=== PATIENT | female | born 1965 | race Caucasian/White ===

== ENCOUNTER → 2019-05-25 14:20 | Outpatient (BNVA) | payer MEDICAID, SELFPAY | PROVIDERS: Visit Provider Podiatrist Foot & Ankle Surgery | DX: M72.2 Plantar fascial fibromatosis (principal); B35.1 Tinea unguium | CPT/HCPCS: 87210 ==

== ENCOUNTER → 2019-08-16 08:13 | Outpatient (BNVA) | payer MEDICAID, SELFPAY | PROVIDERS: PCP Family Medicine; Visit Provider Psychiatry & Neurology Psychiatry | DX: F33.2 Major depressive disorder, recurrent severe without psychotic features (principal); F43.12 Post-traumatic stress disorder, chronic; F41.1 Generalized anxiety disorder; F40.10 Social phobia, unspecified | CPT/HCPCS: 99204 ==

== ENCOUNTER → 2019-09-17 07:46 | Outpatient (BNVA) | payer MEDICAID, SELFPAY | PROVIDERS: PCP Family Medicine; Visit Provider Psychiatry & Neurology Psychiatry | DX: F40.10 Social phobia, unspecified (principal); F41.1 Generalized anxiety disorder; F43.12 Post-traumatic stress disorder, chronic; F33.2 Major depressive disorder, recurrent severe without psychotic features | CPT/HCPCS: 99214 ==

== ENCOUNTER → 2019-09-27 08:11 | Outpatient (BNVA) | payer MEDICAID, SELFPAY | PROVIDERS: PCP Family Medicine; Visit Provider Social Worker Clinical | DX: F33.2 Major depressive disorder, recurrent severe without psychotic features (principal); F43.12 Post-traumatic stress disorder, chronic | CPT/HCPCS: 90834 ==

== ENCOUNTER → 2019-10-25 07:58 | Outpatient (BNVA) | payer MEDICAID, SELFPAY | PROVIDERS: PCP Family Medicine; Visit Provider Social Worker Clinical | DX: F33.2 Major depressive disorder, recurrent severe without psychotic features (principal); F43.12 Post-traumatic stress disorder, chronic; F41.1 Generalized anxiety disorder | CPT/HCPCS: 90834 ==

== ENCOUNTER → 2019-10-27 07:52 | Outpatient (BNVA) | payer MEDICAID, SELFPAY | PROVIDERS: PCP Family Medicine; Visit Provider Psychiatry & Neurology Psychiatry | DX: F40.10 Social phobia, unspecified (principal); F41.1 Generalized anxiety disorder; F43.12 Post-traumatic stress disorder, chronic; F33.2 Major depressive disorder, recurrent severe without psychotic features | CPT/HCPCS: 99213 ==

== ENCOUNTER → 2019-11-08 08:36 | Outpatient (BNVA) | payer MEDICAID, SELFPAY | PROVIDERS: PCP Family Medicine; Visit Provider Social Worker Clinical | DX: F43.12 Post-traumatic stress disorder, chronic (principal); F33.2 Major depressive disorder, recurrent severe without psychotic features | CPT/HCPCS: 90834 ==

== ENCOUNTER 2019-11-09 12:46 | Emergency (ER) | payer MEDICAID, SELFPAY ==
[2019-11-09 13:20] VITALS: BP 173/102; PULSE 60; RESP 15; TEMP 37.1; O2SAT 98; BMI 47.2
--- NOTE | 2019-11-09 13:36 | XRR_ITS ---
PROCEDURE INFORMATION: Exam: XR Left Foot Complete Exam date and time: 11/09/2019 2:14 PM Age: 54 years old Clinical indication: Left; Patient HX: C/O pain on medial ankle and foot; Additional info: Injury TECHNIQUE: Imaging protocol: XR Left foot. Views: 3 or more views. COMPARISON: No relevant prior studies available. FINDINGS: Bones/joints: Small calcaneal spur. Degenerative changes of the midfoot. Diffuse demineralization of the bones. No acute fracture. Soft tissues: Normal. XR/XR foot LT min 3V* [id number] IMPRESSION: No acute abnormality.
--- NOTE | 2019-11-09 13:37 | XRR_ITS ---
PROCEDURE INFORMATION: Exam: XR Left Ankle Exam date and time: 11/09/2019 2:14 PM Age: 54 years old Clinical indication: Injury or trauma; Fall; Initial encounter; Blunt trauma; Heel and foot; Injury date: 2 days ago; Injury details: Slipped landing on large rock specifically heel of left foot. Unable to bear weight on heel of foot; Patient HX: C/O left heel pain TECHNIQUE: Imaging protocol: XR Left ankle. Views: 3 or more views. COMPARISON: CR XR foot LT min 3V* [id number] 11/09/2019 2:10 PM FINDINGS: Bones/joints: Normal. Soft tissues: Normal. XR/XR ankle LT min 3V* [id number] IMPRESSION: No acute abnormality.
--- NOTE | 2019-11-09 14:47 | ED_ITS ---
HPI - Extremity Problem General: Chief complaint: Extremity Injury, Lower Stated complaint: L ankle injury/pain Time Seen by Provider: 11/09/19 13:25 Source: patient Mode of arrival: ambulatory Limitations: no limitations History of Present Illness: HPI Narrative: Patient states that a couple [place] large rock specifically on her heel of her left foot. Since that time it is become increasingly tender she states that it feels bruised despite no obvious appearance of injury or edema. Patient has the ability to walk on the ball of her foot but is unable to bear weight on the heel of her foot. Pain improves with rest and elevation MD Complaint: extremity pain Pain Consistency: intermittent Location: left and lower extremity Quality: aching and dull Radiation: none Relieving factors: elevation and rest Exacerbating factors: weight bearing and walking Associated symptoms: Reports no associated symptoms Review of Systems General: Reports: 10 or more systems reviewed and unremarkable except in HPI and below Musc: Reports: extremity pain; Denies: extremity swelling, joint pain, joint swelling, joint redness or joint warmth PFSH ED PFSH: Medical History Hypercholesteremia Type 2 diabetes mellitus with diabetic polyneuropathy Surgical History H/O section H/O hysterectomy with oophorectomy History of kidney surgery Hx of cholecystectomy Family History Other Cancer Diabetes Heart disease Thyroid disease Denies family history of CAD (coronary artery disease) Clotting disorder Dementia Hyperlipidemia Psychiatric illness Chronic kidney disease (CKD) Suicide Anesthesia complication Bleeding disorder Family history of premature coronary artery disease Lung disease Hypertension Stroke Social History Smoking and tobacco status: never smoked Alcohol intake: never Substance/Drug Use: never Current occupational status: unemployed and previously employed Current gender identity: Female Physical Exam Const: COMMON NORMALS: no acute distress, patient oriented x3 and alert GENERAL APPEARANCE: cooperative and well kempt HENMT: COMMON NORMALS: normocephalic, atraumatic, external ears normal and TM's normal bilaterally HEAD & SCALP: normocephalic and atraumatic EXTERNAL EAR: Yes external ears normal TYMPANIC MEMBRANE: TM's normal bilaterally MOUTH: Normal oral and palatal mucosa present Eye: COMMON NORMALS: Equal, round and reactive pupils present GENERAL EYE: appearance normal, both eyes and all related structures PUPIL: Yes Equal, round and reactive pupils present and Yes Pupil accommodation reflex normal Neck/C-Spine: COMMON NORMALS: full ROM, no lymphadenopathy, supple, no JVD, Thyroid normal and No carotid bruits GENERAL: Yes trachea midline THYROID: Thyroid normal, no masses and nontender Lymph: LYMPHATIC: no lymphadenopathy noted Chest: CHEST: Yes Symmetrical chest wall rise Resp: COMMON NORMALS: normal respiratory effort and clear to auscultation bilaterally EFFORT & INSPECTION: Yes able to speak in complete sentences AUSCULTATION: clear to auscultation bilaterally Cardio: COMMON NORMALS: no JVD, regular rhythm and No murmurs present (Cardio) PALPATION: normal PMI RHYTHM: regular rhythm GI: COMMON NORMALS: non-tender, no masses and no bruits INSPECTION: Yes normal to inspection, No scar and No striae AUSCULTATION: Yes normoactive bowel sounds PALPATION: No Tenderness to palpation present (GI), No Guarding due to palpation present (GI), No Rigid due to palpation, No Hernia present and No Rebound tenderness present PERCUSSION: normal to percussion : EXTERNAL FEMALE EXAM: No Hernia present Back/Pelvis: GENERAL BACK: No swelling and No tenderness THORACIC SPINE/UPPER BACK: No pain with ROM Extremity: COMMON NORMALS: normal to inspection, no clubbing, cyanosis or edema and no calf tenderness LEFT LOWER EXTREMITY: Yes foot & digits Left foot and digits: Yes inspection, Yes palpation (Tender to touch), Yes ROM (Patient limits ROM due to pain.) and Yes neurovascular exam (intact) Neuro: COMMON NORMALS: patient oriented x3 and moves all extremities SENSORIUM/ORIENTATION: Yes alert CRANIAL NERVES: Yes CN normal except as noted GAIT: Yes Normal gait present MOTOR EXAM: 5/5 motor strength present throughout Psych: COMMON NORMALS: mental status grossly normal APPEARANCE: Yes well kempt Skin: COMMON NORMALS: no rashes or lesions noted and turgor normal NARRATIVE SKIN EXAM: Normal coloration of skin GENERAL SKIN EXAM: no rashes or lesions noted and turgor normal LESIONS: no lesions RASHES: no rashes TRAUMA: no lacerations or abrasions Course Reevaluation(s): Reevaluation #1: Discussed possible causes of traumatic injury to foot including stone bruise, fracture, sprain related to mechanism of injury. Awaiting x-ray results. Time: 14:52 Vital Signs: Vital signs: Vital Signs Temperature 98.8 F 11/09/19 13:20 Pulse Rate 60 11/09/19 13:20 Respiratory Rate 15 11/09/19 13:20 Blood Pressure 173/102 11/09/19 13:20 Pulse Oximetry 98 11/09/19 13:20 MDM - Extremity (Nontraumatic) MDM Narrative: Medical decision making narrative: X-ray results indicate no acute abnormality in the ankle or foot. Patient is to rest foot, elevate, ice, and trial NSAIDs for pain management. Patient has tolerated naproxen in the past will have follow-up with PCP in the next week should pain not resolve. Discharge Plan Discharge Patient Disposition: Home, Self-Care Clinical Impression: Muscle strain of foot Qualifiers: Encounter type: initial encounter Laterality: left Qualified Code(s): S96.912A - Strain of unspecified muscle and tendon at ankle and foot level, left foot, initial encounter Condition: Stable Prescriptions: New naproxen 500 mg tablet 500 mg PO Q12H 7 Days Qty: 14 RF: 0 No Action sertraline [Zoloft] 50 mg tablet 100 mg PO DAILY Qty: 60 RF: 2 mirtazapine 7.5 mg tablet 7.5 mg PO .HS Qty: 30 RF: 2 hydroxyzine HCl 25 mg tablet 25 mg PO QID PRN (Reason: anxiety) Qty: 120 RF: 2 bupropion HCl 150 mg tablet sustained-release 12 hr 150 mg PO BID Qty: 60 RF: 2 promethazine 25 mg tablet 25 mg PO Q6H PRNRF: 0 biotin 1,000 mcg tablet,chewable 1,000 mcg PO QDAY RF: 0 ascorbate calcium (vitamin C) 250 each PO DAILY RF: 0 mv,Ca,[id number] no.187 200 mcg tablet PO DAILY RF: 0 rizatriptan 5 mg tablet 5 mg PO DAILY RF: 0 clopidogrel 75 mg tablet 75 mg PO DAILY RF: 0 divalproex 500 mg tablet,delayed release (DR/EC) 500 mg PO BID RF: 0 acetaminophen [Tylenol Extra Strength] 500 mg tablet 500 mg PO Q6H PRNRF: 0 gabapentin 800 mg tablet 800 mg PO QID RF: 0 ondansetron HCl 4 mg tablet 4 mg PO DAILY PRN (Reason: nausea and vomiting) RF: 0 simvastatin 20 mg tablet 20 mg PO DAILY RF: 0 diphenhydramine HCl [Benadryl] 25 mg capsule 25 mg PO QID PRNRF: 0 psyllium husk [Fiber-Caps (psyllium husk)] 0.52 gram capsule 2.6 gm PO DAILY RF: 0 green tea extract 500 mg capsule See Rx Instructions PO DAILY RF: 0 ferrous sulfate [FeroSul] 325 mg (65 mg iron) tablet 325 mg PO .Weekly RF: 0 Referrals: Jai Hopkins [Primary Care Provider] - 4-7 days Discharge Diet: Usual diet Discharge Activity: Increase activity as tolerated Patient Instructions: RICE Therapy (ED), Muscle Strain (ED) Coding Level of Care Code ED Nutrient Management Specialist for [facility] Fwd Exam Comprehensive
[2019-11-09 15:30] VITALS: PULSE 61; RESP 20; O2SAT 98
--- NOTE | 2019-11-09 15:33 | PC.NURSE ---
patients foot was wrapped and tolerated well. patient discharged and walked to waiting room
== END 2019-11-09 15:39 | disposition home or self-care (01) ==
PROVIDERS: Emergency Provider Nurse Practitioner Family; PCP Family Medicine
DX: S96.912A Strain of unspecified muscle and tendon at ankle and foot level, left foot, initial encounter (principal); Z79.02 Long term (current) use of antithrombotics/antiplatelets; W22.09XA Striking against other stationary object, initial encounter; E11.9 Type 2 diabetes mellitus without complications
CPT/HCPCS: 12345; 73610; 73630; 99281; 99283

== ENCOUNTER → 2019-11-30 08:57 | Outpatient (BNVA) | payer MEDICAID, SELFPAY | PROVIDERS: PCP Family Medicine; Visit Provider Social Worker Clinical | DX: F33.2 Major depressive disorder, recurrent severe without psychotic features (principal); F43.12 Post-traumatic stress disorder, chronic | CPT/HCPCS: 90834 ==

== ENCOUNTER → 2019-12-14 08:19 | Outpatient (BNVA) | payer MEDICAID, SELFPAY | PROVIDERS: PCP Family Medicine; Visit Provider Social Worker Clinical | DX: F33.2 Major depressive disorder, recurrent severe without psychotic features (principal); F43.12 Post-traumatic stress disorder, chronic | CPT/HCPCS: 90832 ==

== ENCOUNTER → 2019-12-28 08:28 | Outpatient (BNVA) | payer MEDICAID, SELFPAY | PROVIDERS: PCP Family Medicine; Visit Provider Social Worker Clinical | DX: F33.2 Major depressive disorder, recurrent severe without psychotic features (principal); F43.12 Post-traumatic stress disorder, chronic | CPT/HCPCS: 90834 ==

== ENCOUNTER → 2020-02-01 07:49 | Outpatient (BNVA) | payer MEDICAID, SELFPAY | PROVIDERS: PCP Family Medicine; Visit Provider Psychiatry & Neurology Psychiatry | DX: F40.10 Social phobia, unspecified (principal); F41.1 Generalized anxiety disorder; F43.12 Post-traumatic stress disorder, chronic; F33.2 Major depressive disorder, recurrent severe without psychotic features | CPT/HCPCS: 99213 ==

== ENCOUNTER → 2020-02-07 09:25 | Outpatient (BNVA) | payer MEDICAID, SELFPAY | PROVIDERS: PCP Family Medicine; Visit Provider Social Worker Clinical | DX: F43.12 Post-traumatic stress disorder, chronic (principal); F33.2 Major depressive disorder, recurrent severe without psychotic features | CPT/HCPCS: 90834 ==

== ENCOUNTER → 2020-02-21 08:58 | Outpatient (BNVA) | payer MEDICAID, SELFPAY | PROVIDERS: PCP Family Medicine; Visit Provider Social Worker Clinical | DX: F43.12 Post-traumatic stress disorder, chronic (principal); F33.2 Major depressive disorder, recurrent severe without psychotic features | CPT/HCPCS: 90834 ==

== ENCOUNTER → 2020-03-06 08:33 | Outpatient (BNVA) | payer MEDICAID, SELFPAY | PROVIDERS: PCP Family Medicine; Visit Provider Social Worker Clinical | DX: F43.12 Post-traumatic stress disorder, chronic (principal); F33.2 Major depressive disorder, recurrent severe without psychotic features | CPT/HCPCS: 90832 ==

== ENCOUNTER → 2020-03-28 08:13 | Outpatient (BNVA) | payer MEDICAID, SELFPAY | PROVIDERS: PCP Family Medicine; Visit Provider Social Worker Clinical | DX: F43.12 Post-traumatic stress disorder, chronic (principal); F41.1 Generalized anxiety disorder | CPT/HCPCS: 90834 ==

== ENCOUNTER → 2020-05-30 09:31 | Outpatient (BNVA) | payer MEDICAID, SELFPAY | PROVIDERS: PCP Family Medicine; Visit Provider Psychiatry & Neurology Psychiatry | DX: F40.10 Social phobia, unspecified (principal); F41.1 Generalized anxiety disorder; F43.12 Post-traumatic stress disorder, chronic; F33.2 Major depressive disorder, recurrent severe without psychotic features | CPT/HCPCS: 99214 ==

== ENCOUNTER → 2020-07-04 12:55 | Outpatient (BNVA) | payer MEDICAID, SELFPAY | PROVIDERS: PCP Family Medicine; Visit Provider Psychiatry & Neurology Psychiatry | DX: F40.10 Social phobia, unspecified (principal); F41.1 Generalized anxiety disorder; F43.12 Post-traumatic stress disorder, chronic; F33.2 Major depressive disorder, recurrent severe without psychotic features | CPT/HCPCS: 99213 ==

== ENCOUNTER → 2020-10-06 10:30 | Outpatient (BNVA) | payer MEDICAID, SELFPAY | PROVIDERS: PCP Family Medicine; Visit Provider Psychiatry & Neurology Psychiatry | DX: F40.10 Social phobia, unspecified (principal); F41.1 Generalized anxiety disorder; F43.12 Post-traumatic stress disorder, chronic; F33.2 Major depressive disorder, recurrent severe without psychotic features | CPT/HCPCS: 99213 ==

== ENCOUNTER 2020-11-01 19:14 | Emergency (ER) | payer MEDICAID, SELFPAY ==
[2020-11-01 19:26] VITALS: BP 145/86; PULSE 76; RESP 16; TEMP 38.4; O2SAT 93; BMI 47.8
[2020-11-01 21:00] LABS: Basophils % 0.9 %; Eosinophils % 0.2 %; Hematocrit 43.6 % (37.0-47.0); Hemoglobin 14.1 g/dL (11.5-15.3); Lymphocytes # 0.8 10^3/uL (0.8-4.8); Lymphocytes % 16.3 %; Mean Corpuscular HGB Conc 32.3 g/dL (30.0-36.0); Mean Corpuscular Hemoglobin 30.1 pg (28.0-34.0); Mean Corpuscular Volume 93.2 fL (81-99); Mean Platelet Volume 9.7 fL (7.4-10.4); Monocytes # 0.8 10^3/uL (0.2-0.9); Monocytes % 17.4 %; Neutrophils % 64.6 %; Nucleated Red Blood Cells % 0 %; Platelet Count 249 10^3/cmm (130-400); Red Blood Count 4.68 10^6/uL (4.1-5.3); Red Cell Distribution Width 14.1 % (12.1-15.1); White Blood Count 4.7 10^3/uL (4.0-10.0)
[2020-11-01 21:20] LABS: Alanine Aminotransferase 12 U/L (0-33); Albumin Level 3.9 g/dL (3.5-5.2); Alkaline Phosphatase 90 IU/L (35-105); Anion Gap 15.7 (5-19); Aspartate Amino Transferase 16 U/L (0-32); Blood Urea Nitrogen 8 mg/dL (6-20); Calcium 8.9 mg/dL (8.5-10.5); Carbon Dioxide 25 mmol/L (22-29); Chloride 103 mmol/L (98-107); Globulin 2.6 g/dL (1.3-4.6); Glomerular Filtration Rate 87.5 mL/min (90-130); Glucose 110 mg/dL (65-115); Osmolality Calculated 289 mOsm/kg (285-295); Potassium 3.7 mmol/L (3.5-5.1); Sodium 140 mmol/L (136-145); Total Bilirubin 0.4 mg/dL (0.15-1.2); Total Protein 6.5 g/dL (6.6-8.7)
== END 2020-11-01 21:00 | disposition left against medical advice (07) ==
LOC: ER 19:19
PROVIDERS: Physician Assistant; Emergency Provider Family Medicine; PCP Family Medicine
DX: Z53.21 Procedure and treatment not carried out due to patient leaving prior to being seen by health care provider (principal)
CPT/HCPCS: 80053; 85025

== ENCOUNTER → 2021-11-20 10:03 | Outpatient (BNVA) | payer BC, MEDICAID, SELFPAY | PROVIDERS: PCP Family Medicine; Visit Provider Nurse Practitioner Family | DX: N39.46 Mixed incontinence (principal); N39.44 Nocturnal enuresis | CPT/HCPCS: 81003 ==

== ENCOUNTER 2022-01-10 12:59 | Emergency (ER) | payer BC, MEDICAID, SELFPAY ==
[2022-01-10] VITALS (13 sets, daily range): BP systolic 126–173; BP diastolic 62–130; PULSE 72–80; RESP 18–20; TEMP 38.2–39.6; O2SAT 90–98; BMI 44.9
--- NOTE | 2022-01-10 13:12 | ED_ITS ---
Documented by User: Brionna May MD 01/12/22 20:04 HPI - General Adult General: Chief complaint: Extremity Problem,Nontraumatic Stated complaint: r leg pain Time Seen by Provider: 01/10/22 13:04 History of Present Illness: Patient is a 56-year-old female with a history of diabetes, hyperlipidemia who presents the emergency room with complaints of body aches, chills, cough, diarrhea, nausea vomiting and R leg pain/redness/swelling. Patient first noticed the leg leg pain and swelling 4 days ago. Pain since the patient has had worsening pain swelling and redness. It is not, he reports body ache, cough, diarrhea and decreased p.o. intake. Patient reports loose stool all times a day. Patient has not been in contact with anybody with COVID or URI symptoms. Patient does not know why her legs are swollen or red. Patient denies any trauma or injuries. Onset:4 days ago Duration:4 days Location:home Severity:moderate Associated symptoms: Reports nausea; Deny chest pain, dyspnea, rash, palpitations or vomiting Review of Systems Const: Reports: chills, body aches and fatigue; Denies: fever(s) Eyes: Denies: change in vision ENMT: Denies: mouth pain Card: Denies: chest pain or palpitations Resp: Reports: non-productive cough; Denies: dyspnea GI: Reports: nausea and diarrhea; Denies: abdominal pain or vomiting : Denies: dysuria Musc: Reports: extremity pain (+R leg swelling/pain/redness) Skin/Breast: Denies: rash or new lesions Neuro: Denies: weakness in extremities Psych: Reports: other (Normal mood) Pedro/Lymph: Denies: easy bruising PFSH ED PFSH: Medical History Hemiplegic migraine Hypercholesteremia Type 2 diabetes mellitus with diabetic polyneuropathy Surgical History H/O section H/O hysterectomy with oophorectomy History of arthroplasty of right knee History of kidney surgery History of knee surgery multiple right knee Hx of cholecystectomy Family History Mother , at age 58 Cancer Lung, brain, bone Father , at age 79 Heart attack Other Diabetes Heart disease Thyroid disease Denies family history of CAD (coronary artery disease) Clotting disorder Dementia Hyperlipidemia Psychiatric illness Chronic kidney disease (CKD) Suicide Anesthesia complication Bleeding disorder Family history of premature coronary artery disease Lung disease Hypertension Stroke Social History Smoking and tobacco status: never smoked Second hand smoke exposure: No Alcohol intake: never Household members: spouse Marital status: Current occupational status: disabled History of recent travel: No Current gender identity: Female Physical Exam Const: COMMON NORMALS: alert HENMT: COMMON NORMALS: atraumatic HEAD & SCALP: atraumatic MOUTH: moist mucous membranes not abnormal Eye: COMMON NORMALS: EOMs intact bilaterally and conjunctivae normal CONJUNCTIVA: Yes conjunctivae normal Neck/C-Spine: COMMON NORMALS: full ROM and supple Resp: COMMON NORMALS: normal respiratory effort and clear to auscultation bilaterally AUSCULTATION: clear to auscultation bilaterally Cardio: COMMON NORMALS: regular rate RATE: regular rate GI: COMMON NORMALS: Soft to palpation and non-tender PALPATION: Yes Soft to palpation OTHER: No focal TTP. NO guarding rebound, guarding, rigidity. No CVA tenderness to percussion. Neg Vann/Neg McBurney's point tenderness, no suprabupic tenderness to palpation. Extremity: COMMON NORMALS: full ROM OTHER: +R 3+ edema with surrounding warmth and erythema of the right tib-fib, 2+ DP/PT pulses on the right side, patient has moderate pain to palpation over the right leg, no palpable fluctuance over the right leg Neuro: SENSORIUM/ORIENTATION: Yes alert MOTOR EXAM: No Abnormal motor strength present and Other motor observations present (no focal motor deficits) Psych: COMMON NORMALS: speech normal SPEECH: Yes normal speech MOOD & AFFECT: Yes euthymic mood Course Vital Signs: Vital signs: Vital Signs Temperature 99.5 F 01/11/22 04:43 Pulse Rate 68 01/11/22 10:55 Respiratory Rate 17 01/11/22 10:55 Blood Pressure 119/70 01/11/22 10:55 Pulse Oximetry 99 01/11/22 10:55 Oxygen Delivery Me thod 01/11/22 07:46 Oxygen Flow Rate 2 01/11/22 07:46 MDM - General Adult Medical Decision Making Patient is a 56-year-old female with a history of diabetes, hyperlipidemia who presents the emergency room with complaints of body aches, chills, cough, diarrhea, nausea vomiting and R leg pain/redness/swelling x 4 day. On exam, patient is noted to be near febrile to 103.3 degrees. Patient is noted to have erythematous swollen right tib-fib with moderate tenderness to palpation. No crepitus or pain out of proportion to exam. Rest of exam is unremarkable. Patient is noted to have white count 9.8. CRP of over 300. X-ray did not show any gas pattern. Patient is negative for DVT. Patient received IV antibiotics. Given elevated CRP and extensive cellulitis, patient will admitted to hospital for IV antibiotics. COVID pending. Significant pain, Dr. Langley from general surgery eval patient does not think this is necrotizing soft tissue infection. CT of the R leg showed complex fluid collection with air in the right knee c oncerning for possible septic joint. Dr. Brian discussed case with Dr. Faustin who recommended transfer given complexity of case. Case signed out to Dr. Chen pending transfer. Patient care handoff received from Dr. May pending accepting outside facility. I did contact [facility] where the patient had initial procedure done with Dr. Sanders on April 06. I spoke with the on-call orthopedic physician who is a colleague of Dr. Sanders who was unable to accept the patient as a transfer given no bed a vailability. He did recommend trying to contact Dr. Sanders in the morning and perhaps consideration for transfer to their orthopedic hospital though he cannot accept the patient there at this time. Patient care handed off to morning ED physician pending further plan and discussion. Samm Chen MD Emergency Medicine Dr. Sanders was contacted this morning patient is excepted at [facility] orthopedic [facility] and will transfer there. Lab Data : 01/11/22 09:35 01/11/22 09:35 Radiology Impressions Chest X-Ray 01/10/22 13:25 IMPRESSION: Cardiomegaly with pulmonary venous hypertension. Tibia/Fibula X-Ray 01/10/22 13:25 IMPRESSION: Diffuse soft tissue swelling as above. Lower Extremity CT 01/10/22 18:03 IMPRESSION: 1. Large complex knee joint effusion with some air and hyperdensity possibly reflecting underlying infection and blood products, depending on the clinical history, incompletely visualized given field of view. 2. Knee arthroplasty changes are seen in place with an apparent joint spacer. 3. Subcutaneous edema in the lower extremity, nonspecific. 4. Calcified heel spur. 5. Distal Achilles tendon degenerative calcification. ADDENDUM: 01/11/22 1549 Exam was performed with intravenous contrast. Laboratory Results WBC 9.8 10^3/uL (4.0-10.0) 01/11/22 09:35 RBC 3.57 10^6/uL (4.1-5.3) L 01/11/22 09:35 Hgb 10.4 g/dL (11.5-15.3) L 01/11/22 09:35 Hct 32.4 % (37.0-47.0) L 01/11/22 09:35 MCV 90.8 fl (81-99) 01/11/22 09:35 MCH 29.1 pg (28.0-34.0) 01/11/22 09:35 MCHC 32.1 g/dL (30.0-36.0) 01/11/22 09:35 RDW 14.2 % (12.1-15.1) 01/11/22 09:35 Plt Count 167 10^3/cmm (130-400) 01/11/22 09:35 MPV 10.7 fL (7.4-10.4) H 01/11/22 09:35 Neut % (Auto) 90.0 % 01/11/22 09:35 Lymph % (Auto) 2.5 % 01/11/22 09:35 [place] % (Auto) 6.3 % 01/11/22 09:35 Eos % (Auto) 0.0 % 01/11/22 09:35 Baso % (Auto) 0.3 % 01/11/22 09:35 Neut # (Auto) 8.79 10^3/uL (1.8-7.7) H 01/11/22 09:35 Lymph # (Auto) 0.2 10^3/uL (0.8-4.8) L 01/11/22 09:35 [place] # (Auto) 0.6 10^3/uL (0.2-0.9) 01/11/22 09:35 Eos # (Auto) 0.0 10^3/uL (0.0-0.8) 01/11/22 09:35 Baso # (Auto) 0.0 10^3/uL (0.0-0.1) 01/11/22 09:35 Nucleated RBC % (auto) 0 % 01/11/22 09:35 Nucleated RBCs # 0.0 /100WBC 01/11/22 09:35 ESR 23 mm/hr (0-15) H 01/10/22 14:00 Sodium 130 mmol/L (136-145) L 01/11/22 09:35 Potassium 3.5 mmol/L (3.5-5.1) 01/11/22 09:35 Chloride 93 mmol/L (98-107) L 01/11/22 09:35 Carbon Dioxide 26 mmol/L (22-29) 01/11/22 09:35 Anion Gap 14.5 (5-19) 01/11/22 09:35 BUN 15 mg/dL (6-20) 01/11/22 09:35 Creatinine 0.8 mg/dL (0.5-0.9) 01/11/22 09:35 GFR Calculation 74.7 mL/min (90-130) L 01/11/22 09:35 Glucose 108 mg/dL (65-115) 01/11/22 09:35 Calculated Osmolality 271 mOsm/kg (285-295) L 01/11/22 09:35 Lactate 1.0 mmol/L (0.5-2.2) 01/11/22 09:35 Calcium 8.3 mg/dL (8.5-10.5) L 01/11/22 09:35 Total Bilirubin 0.4 mg/dL (0.15-1.2) 01/11/22 09:35 AST 21 U/L (0-32) 01/11/22 09:35 ALT 13 U/L (0-33) 01/11/22 09:35 Alkaline Phosphatase 146 U/L (35-105) H 01/11/22 09:35 C-Reactive Protein 318.8 mg/L (0.0-4.9) H 01/10/22 14:00 Total Protein 6.0 g/dL (6.6-8.7) L 01/11/22 09:35 Albumin 2.8 g/dL (3.5-5.2) L 01/11/22 09:35 Globulin 3.2 g/dL (1.3-4.6) 01/11/22 09:35 Coronavirus 229E (PCR) Not detected (NOT DETECT) 01/10/22 18:05 SARS-CoV-2 (PCR) Not detected (NOT DETECT) 01/10/22 18:05 Imaging Data Other Imaging: Radiologist's impression: [address] [address] XRay Report Signed Patient: Nellie Salas Unit #: [id number] : 1965 Age/Sex: 56 / F ADM Date: 01/10/22 Loc: ER Room/Bed: Attending Dr: Ordering Provider/Ordering MD: Brionna May MD Date of Service: 01/10/22 Procedure(s): XR tibia fibula RT 2V 77483 Accession Number(s): [id number] Report Number: [id number] WS: [id number] XR tibia fibula RT 2V 14110 REASON FOR EXAM: infection, severe pain FINDINGS: There is diffuse swelling of the soft tissues of the right lower leg. No gas or foreign body is identified within the soft tissues. No mass is identified. There is been total right knee arthroplasty. The tibia and fibula are intact without fracture. There is no periosteal reaction or destructive bony lesion. XR/XR tibia fibula RT 2V 11895 IMPRESSION: Diffuse soft tissue swelling as above. ? ? Dictated By: Uziel Brink Jr, MD Signed By: Uziel Brink Jr, MD Signed Date/Time: 01/10/22 1343 DD/ [address] [address] XRay Report Signed Patient: Nellie Salas Unit #: [id number] : 1965 Age/Sex: 56 / F ADM Date: 01/10/22 Loc: ER Room/Bed: Attending Dr: Ordering Provider/Ordering MD: Brionna May MD Date of Service: 01/10/22 Procedure(s): XR chest 1V portable [id number] Accession Number(s): [id number] Report Number: [id number] WS: [id number] XR chest 1V portable [id number] REASON FOR EXAM: dyspnea FINDINGS: Compared to 05/26/2017, heart appears enlarged. Thoracic aorta is moderately tortuous with mild ectasia. There is some prominence of the upper lobe veins. No acute pulmonary parenchymal or pleural abnormality is identified. Moderate changes of degenerative spondylosis in the mid and lower thoracic spine. XR/XR chest 1V portable [id number] IMPRESSION: Cardiomegaly with pulmonary venous hypertension. ? ? Dictated By: Uziel Brink Jr, MD Signed By: Uziel Brink Jr, MD Signed Date/Time: 01/10/22 1347 DD/ 1344 Discharge Plan Discharge Patient Disposition: Xfer Short-Term Hosp Clinical Impression: Cellulitis, Diabetes, Cough, Body aches Condition: Stable Referrals: Jai Hopkins [Primary Care Provider] - Sign Out Sign Out Data: Patient Sign Out occurred on 01/10/22 at 22:13. Patient's care was discussed, and care was transferred from to Samm Chen MD. Coding Level of Care Code ED Fisheries Inspector for Chg Fwd Exam Comprehensive Documented by User: Samm Chen MD 01/11/22 05:21 HPI - General Adult General: Chief complaint: Extremity Problem,Nontraumatic Stated complaint: r leg pain Time Seen by Provider: 01/10/22 13:04 PFSH ED PFSH: Medical History Hemiplegic migraine Hypercholesteremia Type 2 diabetes mellitus with diabetic polyneuropathy Surgical History H/O section H/O hysterectomy with oophorectomy History of arthroplasty of right knee History of kidney surgery History of knee surgery multiple right knee Hx of cholecystectomy Family History Mother , at age 58 Cancer Lung, brain, bone Father , at age 79 Heart attack Other Diabetes Heart disease Thyroid disease Denies family history of CAD (coronary artery disease) Clotting disorder Dementia Hyperlipidemia Psychiatric illness Chronic kidney disease (CKD) Suicide Anesthesia complication Bleeding disorder Family history of premature coronary artery disease Lung disease Hypertension Stroke Social History Smoking and tobacco status: never smoked Second hand smoke exposure: No Alcohol intake: never Household members: spouse Marital status: Current occupational status: disabled History of recent travel: No Current gender identity: Female Course Vital Signs: Vital signs: Vital Signs Temperature 99.5 F 01/11/22 04:43 Pulse Rate 68 01/11/22 10:55 Respiratory Rate 17 01/11/22 10:55 Blood Pressure 119/70 01/11/22 10:55 Pulse Oximetry 99 01/11/22 10:55 Oxygen Delivery Me thod 01/11/22 07:46 Oxygen Flow Rate 2 01/11/22 07:46 [facility] - General Adult Medical Decision Making Patient is a 56-year-old female with a history of diabetes, hyperlipidemia who presents the emergency room with complaints of body aches, chills, cough, diarrhea, nausea vomiting and R leg pain/redness/swelling x 4 day. On exam, patient is noted to be near febrile to 103.3 degrees. Patient is noted to have erythematous swollen right tib-fib with moderate tenderness to palpation. No crepitus or pain out of proportion to exam. Rest of exam is unremarkable. Patient is noted to have white count 9.8. CRP of over 300. X-ray did not show any gas pattern. Patient is negative for DVT. Patient received IV antibiotics. Given elevated CRP and extensive cellulitis, patient will admitted to hospital for IV antibiotics. COVID pending. Significant pain, Dr. Langley from general surgery eval patient does not think this is necrotizing soft tissue infection. CT of the R leg showed complex fluid collection with air in the right knee conc erning for possible septic joint. Dr. Kolb discussed case with Dr. Faustin who recommended transfer given complexity of case. Case signed out to Dr. Chen pending transfer. Patient care handoff received from Dr. May pending accepting outside facility. I did contact [facility] where the patient had initial procedure done with Dr. Sanders on April 06. I spoke with the on-call orthopedic physician who is a colleague of Dr. Sanders who was unable to accept the patient as a transfer given no bed availability. He did recommend trying to contact Dr. Sanders in the morning and perhaps consideration for transfer to their orthopedic hospital though he cannot accept the patient there at this time. Patient care handed off to morning ED physician pending further plan and discussion. Samm Chen MD Emergency Medicine Lab Data : 01/11/22 09:35 01/11/22 09:35 Radiology Impressions Chest X-Ray 01/10/22 13:25 IMPRESSION: Cardiomegaly with pulmonary venous hypertension. Tibia/Fibula X-Ray 01/10/22 13:25 IMPRESSION: Diffuse soft tissue swelling as above. Lower Extremity CT 01/10/22 18:03 IMPRESSION: 1. Large complex knee joint effusion with some air and hyperdensity possibly reflecting underlying infection and blood products, depending on the clinical history, incompletely visualized given field of view. 2. Knee arthroplasty changes are seen in place with an apparent joint spacer. 3. Subcutaneous edema in the lower extremity, nonspecific. 4. Calcified heel spur. 5. Distal Achilles tendon degenerative calcification. ADDENDUM: 01/11/22 1549 Exam was performed with intravenous contrast. Laboratory Results WBC 9.8 10^3/uL (4.0-10.0) 01/11/22 09:35 RBC 3.57 10^6/uL (4.1-5.3) L 01/11/22 09:35 Hgb 10.4 g/dL (11.5-15.3) L 01/11/22 09:35 Hct 32.4 % (37.0-47.0) L 01/11/22 09:35 MCV 90.8 fl (81-99) 01/11/22 09:35 MCH 29.1 pg (28.0-34.0) 01/11/22 09:35 MCHC 32.1 g/dL (30.0-36.0) 01/11/22 09:35 RDW 14.2 % (12.1-15.1) 01/11/22 09:35 Plt Count 167 10^3/cmm (130-400) 01/11/22 09:35 MPV 10.7 fL (7.4-10.4) H 01/11/22 09:35 Neut % (Auto) 90.0 % 01/11/22 09:35 Lymph % (Auto) 2.5 % 01/11/22 09:35 [place] % (Auto) 6.3 % 01/11/22 09:35 Eos % (Auto) 0.0 % 01/11/22 09:35 Baso % (Auto) 0.3 % 01/11/22 09:35 Neut # (Auto) 8.79 10^3/uL (1.8-7.7) H 01/11/22 09:35 Lymph # (Auto) 0.2 10^3/uL (0.8-4.8) L 01/11/22 09:35 [place] # (Auto) 0.6 10^3/uL (0.2-0.9) 01/11/22 09:35 Eos # (Auto) 0.0 10^3/uL (0.0-0.8) 01/11/22 09:35 Baso # (Auto) 0.0 10^3/uL (0.0-0.1) 01/11/22 09:35 Nucleated RBC % (auto) 0 % 01/11/22 09:35 Nucleated RBCs # 0.0 /100WBC 01/11/22 09:35 ESR 23 mm/hr (0-15) H 01/10/22 14:00 Sodium 130 mmol/L (136-145) L 01/11/22 09:35 Potassium 3.5 mmol/L (3.5-5.1) 01/11/22 09:35 Chloride 93 mmol/L (98-107) L 01/11/22 09:35 Carbon Dioxide 26 mmol/L (22-29) 01/11/22 09:35 Anion Gap 14.5 (5-19) 01/11/22 09:35 BUN 15 mg/dL (6-20) 01/11/22 09:35 Creatinine 0.8 mg/dL (0.5-0.9) 01/11/22 09:35 GFR Calculation 74.7 mL/min (90-130) L 01/11/22 09:35 Glucose 108 mg/dL (65-115) 01/11/22 09:35 Calculated Osmolality 271 mOsm/kg (285-295) L 01/11/22 09:35 Lactate 1.0 mmol/L (0.5-2.2) 01/11/22 09:35 Calcium 8.3 mg/dL (8.5-10.5) L 01/11/22 09:35 Total Bilirubin 0.4 mg/dL (0.15-1.2) 01/11/22 09:35 AST 21 U/L (0-32) 01/11/22 09:35 ALT 13 U/L (0-33) 01/11/22 09:35 Alkaline Phosphatase 146 U/L (35-105) H 01/11/22 09:35 C-Reactive Protein 318.8 mg/L (0.0-4.9) H 01/10/22 14:00 Total Protein 6.0 g/dL (6.6-8.7) L 01/11/22 09:35 Albumin 2.8 g/dL (3.5-5.2) L 01/11/22 09:35 Globulin 3.2 g/dL (1.3-4.6) 01/11/22 09:35 Coronavirus 229E (PCR) Not detected (NOT DETECT) 01/10/22 18:05 SARS-CoV-2 (PCR) Not detected (NOT DETECT) 01/10/22 18:05 Discharge Plan Discharge Patient Disposition: Xfer Short-Term Hosp Clinical Impression: Cellulitis, Diabetes, Cough, Body aches Condition: Stable Referrals: Jai Hopkins [Primary Care Provider] - Sign Out Sign Out Data: Patient Sign Out occurred on 01/10/22 at 22:13. Patient's care was discussed, and care was transferred from to Samm Chen MD. Coding Level of Care Code ED Fisheries Inspector for Alejog Fwd Exam Comprehensive Documented by User: Jony Shepherd MD 01/11/22 09:57 HPI - General Adult General: Chief complaint: Extremity Problem,Nontraumatic Stated complaint: r leg pain Time Seen by Provider: 01/10/22 13:04 PFS ED PFSH: Medical History Hemiplegic migraine Hypercholesteremia Type 2 diabetes mellitus with diabetic polyneuropathy Surgical History H/O section H/O hysterectomy with oophorectomy History of arthroplasty of right knee History of kidney surgery History of knee surgery multiple right knee Hx of cholecystectomy Family History Mother , at age 58 Cancer Lung, brain, bone Father , at age 79 Heart attack Other Diabetes Heart disease Thyroid disease Denies family history of CAD (coronary artery disease) Clotting disorder Dementia Hyperlipidemia Psychiatric illness Chronic kidney disease (CKD) Suicide Anesthesia complication Bleeding disorder Family history of premature coronary artery disease Lung disease Hypertension Stroke Social History Smoking and tobacco status: never smoked Second hand smoke exposure: No Alcohol intake: never Household members: spouse Marital status: Current occupational status: disabled History of recent travel: No Current gender identity: Female Course Vital Signs: Vital signs: Vital Signs Temperature 99.5 F 01/11/22 04:43 Pulse Rate 68 01/11/22 10:55 Respiratory Rate 17 01/11/22 10:55 Blood Pressure 119/70 01/11/22 10:55 Pulse Oximetry 99 01/11/22 10:55 Oxygen Delivery Me thod 01/11/22 07:46 Oxygen Flow Rate 2 01/11/22 07:46 MDM - General Adult Medical Decision Making Patient is a 56-year-old female with a history of diabetes, hyperlipidemia who presents the emergency room with complaints of body aches, chills, cough, diarrhea, nausea vomiting and R leg pain/redness/swelling x 4 day. On exam, patient is noted to be near febrile to 103.3 degrees. Patient is noted to have erythematous swollen right tib-fib with moderate tenderness to palpation. No crepitus or pain out of proportion to exam. Rest of exam is unremarkable. Patient is noted to have white count 9.8. CRP of over 300. X-ray did not show any gas pattern. Patient is negative for DVT. Patient received IV antibiotics. Given elevated CRP and extensive cellulitis, patient will admitted to hospital for IV antibiotics. COVID pending. Significant pain, Dr. Langley from general surgery eval patient does not think this is necrotizing soft tissue infection. CT of the R leg showed complex fluid collection with air in the right knee concerning for possible septic joint. Dr. Kolb discussed case with Dr. Faustin who recommended transfer given complexity of case. Case signed out to Dr. Chen pending transfer. Patient care handoff received from Dr. May pending accepting outside facility. I did contact [facility] where the patient had initial procedure done with Dr. Sanders on April 06. I spoke with the on-call orthopedic physician who is a colleague of Dr. Sanders who was unable to accept the patient as a transfer given no bed availability. He did recommend trying to contact Dr. Sanders in the morning and perhaps consideration for transfer to their orthopedic hospital though he cannot accept the patient there at this time. Patient care handed off to morning ED physician pending further plan and discussion. Samm Chen MD Emergency Medicine Dr. Sanders was contacted this morning patient is excepted at [facility] and will transfer there. Lab Data : 01/11/22 09:35 01/11/22 09:35 Radiology Impressions Chest X-Ray 01/10/22 13:25 IMPRESSION: Cardiomegaly with pulmonary venous hypertension. Tibia/Fibula X-Ray 01/10/22 13:25 IMPRESSION: Diffuse soft tissue swelling as above. Lower Extremity CT 01/10/22 18:03 IMPRESSION: 1. Large complex knee joint effusion with some air and hyperdensity possibly reflecting underlying infection and blood products, depending on the clinical history, incompletely visualized given field of view. 2. Knee arthroplasty changes are seen in place with an apparent joint spacer. 3. Subcutaneous edema in the lower extremity, nonspecific. 4. Calcified heel spur. 5. Distal Achilles tendon degenerative calcification. ADDENDUM: 01/11/22 2029 Exam was performed with intravenous contrast. Laboratory Results WBC 9.8 10^3/uL (4.0-10.0) 01/11/22 09:35 RBC 3.57 10^6/uL (4.1-5.3) L 01/11/22 09:35 Hgb 10.4 g/dL (11.5-15.3) L 01/11/22 09:35 Hct 32.4 % (37.0-47.0) L 01/11/22 09:35 MCV 90.8 fl (81-99) 01/11/22 09:35 MCH 29.1 pg (28.0-34.0) 01/11/22 09:35 MCHC 32.1 g/dL (30.0-36.0) 01/11/22 09:35 RDW 14.2 % (12.1-15.1) 01/11/22 09:35 Plt Count 167 10^3/cmm (130-400) 01/11/22 09:35 MPV 10.7 fL (7.4-10.4) H 01/11/22 09:35 Neut % (Auto) 90.0 % 01/11/22 09:35 Lymph % (Auto) 2.5 % 01/11/22 09:35 [place] % (Auto) 6.3 % 01/11/22 09:35 Eos % (Auto) 0.0 % 01/11/22 09:35 Baso % (Auto) 0.3 % 01/11/22 09:35 Neut # (Auto) 8.79 10^3/uL (1.8-7.7) H 01/11/22 09:35 Lymph # (Auto) 0.2 10^3/uL (0.8-4.8) L 01/11/22 09:35 [place] # (Auto) 0.6 10^3/uL (0.2-0.9) 01/11/22 09:35 Eos # (Auto) 0.0 10^3/uL (0.0-0.8) 01/11/22 09:35 Baso # (Auto) 0.0 10^3/uL (0.0-0.1) 01/11/22 09:35 Nucleated RBC % (auto) 0 % 01/11/22 09:35 Nucleated RBCs # 0.0 /100WBC 01/11/22 09:35 ESR 23 mm/hr (0-15) H 01/10/22 14:00 Sodium 130 mmol/L (136-145) L 01/11/22 09:35 Potassium 3.5 mmol/L (3.5-5.1) 01/11/22 09:35 Chloride 93 mmol/L (98-107) L 01/11/22 09:35 Carbon Dioxide 26 mmol/L (22-29) 01/11/22 09:35 Anion Gap 14.5 (5-19) 01/11/22 09:35 BUN 15 mg/dL (6-20) 01/11/22 09:35 Creatinine 0.8 mg/dL (0.5-0.9) 01/11/22 09:35 GFR Calculation 74.7 mL/min (90-130) L 01/11/22 09:35 Glucose 108 mg/dL (65-115) 01/11/22 09:35 Calculated Osmolality 271 mOsm/kg (285-295) L 01/11/22 09:35 Lactate 1.0 mmol/L (0.5-2.2) 01/11/22 09:35 Calcium 8.3 mg/dL (8.5-10.5) L 01/11/22 09:35 Total Bilirubin 0.4 mg/dL (0.15-1.2) 01/11/22 09:35 AST 21 U/L (0-32) 01/11/22 09:35 ALT 13 U/L (0-33) 01/11/22 09:35 Alkaline Phosphatase 146 U/L (35-105) H 01/11/22 09:35 C-Reactive Protein 318.8 mg/L (0.0-4.9) H 01/10/22 14:00 Total Protein 6.0 g/dL (6.6-8.7) L 01/11/22 09:35 Albumin 2.8 g/dL (3.5-5.2) L 01/11/22 09:35 Globulin 3.2 g/dL (1.3-4.6) 01/11/22 09:35 Coronavirus 229E (PCR) Not detected (NOT DETECT) 01/10/22 18:05 SARS-CoV-2 (PCR) Not detected (NOT DETECT) 01/10/22 18:05 Discharge Plan Discharge Patient Disposition: Xfer Short-Term Hosp Clinical Impression: Cellulitis, Diabetes, Cough, Body aches Condition: Stable Referrals: Jai Hopkins [Primary Care Provider] - Sign Out Sign Out Data: Patient Sign Out occurred on 01/10/22 at 22:13. Patient's care was discussed, and care was transferred from to Samm Chen MD. 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
--- NOTE | 2022-01-10 13:25 | XR_ITS ---
WS: [id number] XR chest 1V portable [id number] REASON FOR EXAM: dyspnea FINDINGS: Compared to 05/26/2017, heart appears enlarged. Thoracic aorta is moderately tortuous with mild ectasia. There is some prominence of the upper lobe veins. No acute pulmonary parenchymal or pleural abnormality is identified. Moderate changes of degenerative spondylosis in the mid and lower thoracic spine. XR/XR chest 1V portable [id number] IMPRESSION: Cardiomegaly with pulmonary venous hypertension.
--- NOTE | 2022-01-10 13:25 | XR_ITS ---
WS: [id number] XR tibia fibula RT 2V [id number] REASON FOR EXAM: infection, severe pain FINDINGS: There is diffuse swelling of the soft tissues of the right lower leg. No gas or foreign body is ident ified within the soft tissues. No mass is identified. There is been total right knee arthroplasty. The tibia and fibula are intact without fracture. There is no periosteal reaction or destructive bony lesion. XR/XR tibia fibula RT 2V [id number] IMPRESSION: Diffuse soft tissue swelling as above.
--- NOTE | 2022-01-10 13:33 | USCV_ITS ---
Nellie Salas Age: 56 Gender: F : 1965 Exam Date: 01/10/2022 14:08 Ordering Phys: Brionna May MD Technologist: BROOKE [place] [facility] [place]ication: RLE PAIN AND SWELLING WITH DISCOLORATION HISTORY: Lower extremity swelling. Lower extremity pain. PROCEDURES: Venous duplex imaging was performed in only the right lower extremity. The following venous structures were evaluated: common femoral vein, profunda vein, proximal portion of the greater saphenous vein, superficial femoral vein, and the popliteal vein. In addition, the posterior tibial and peroneal trunk were evaluated. Serial compression, augmentation maneuvers, and spectral Doppler flow evaluation were performed. FINDINGS: Examination was technically limited due to body habitus. No evidence of DVT seen in any vessel visualized at this time. Enlarged Lymph nodes seen in Right groin CONCLUSIONS No evidence of right lower extremity DVT. Enlarged lymph nodes right groin non specific, Recommend clinical correlation Lloyd Salcido MD (Electronically Signed) Final Date: 11 January 2022 10:18 S
[2022-01-10 14:11] LABS: Basophils % 0.2 %; Hematocrit 34.7 % (37.0-47.0); Hemoglobin 11.5 g/dL (11.5-15.3); Lymphocytes # 0.2 10^3/uL (0.8-4.8); Lymphocytes % 1.6 %; Mean Corpuscular HGB Conc 33.1 g/dL (30.0-36.0); Mean Corpuscular Hemoglobin 29.4 pg (28.0-34.0); Mean Corpuscular Volume 88.7 fl (81-99); Mean Platelet Volume 10.3 fL (7.4-10.4); Monocytes # 0.5 10^3/uL (0.2-0.9); Monocytes % 4.6 %; Neutrophils # 9.05 10^3/uL (1.8-7.7); Neutrophils % 92.7 %; Nucleated Red Blood Cells % 0 %; Platelet Count 180 10^3/cmm (130-400); Red Blood Count 3.91 10^6/uL (4.1-5.3); Red Cell Distribution Width 13.7 % (12.1-15.1); White Blood Count 9.8 10^3/uL (4.0-10.0)
[2022-01-10] MEDS: morphine 4 mg/mL SDV 1 mL IVP (14:18)
[2022-01-10] MEDS: sodium chloride 0.9% 1,000 ML 999 ML IV (14:18)
[2022-01-10] MEDS: acetaminophen 500 mg Tablet PO (14:18)
[2022-01-10] MEDS: cefepime 1,000 MG in sodium chloride 0.9% (plus) 50 ML 100 MG IV (14:19)
[2022-01-10 14:27] LABS: Anion Gap 16.9 (5-19); Blood Urea Nitrogen 28 mg/dL (6-20); C Reactive Protein 318.8 mg/L (0.0-4.9); Calcium 8.8 mg/dL (8.5-10.5); Carbon Dioxide 25 mmol/L (22-29); Chloride 94 mmol/L (98-107); Glomerular Filtration Rate 57.8 mL/min (90-130); Glucose 122 mg/dL (65-115); Lactate (Lactic Acid level) 1.4 mmol/L (0.5-2.2); Osmolality Calculated 281 mOsm/kg (285-295); Potassium 3.9 mmol/L (3.5-5.1); Sodium 132 mmol/L (136-145)
[2022-01-10 14:28] LABS: Creatinine Clr Calc Pharmacy 84.4589
[2022-01-10 14:31] LABS: Erythrocyte Sedimentation Rate 23 mm/hr (0-15)
--- NOTE | 2022-01-10 15:42 | P.HP_ITS ---
Providers/Chief Complaint Primary Care Provider: Jai Hopkins Chief Complaint: r leg pain History of Present Illness Pleasant 56-year lady with history of diabetes, hemiplegic migraines, HLD, obesity, came in due to about 4 days duration of malaise, chills, fever, some headache, nausea, vomiting, reported diarrhea as well, but also worsening erythema, swelling of right lower extremity. She is noted febrile in ER 103.3. Without leukocytosis. With normal lactate. Does appear to have some minimal confusion, sluggish in answering questions. Noted diffuse swelling of right lower extremity below the knee. Diffuse irregular erythema, tender to touch. Several small round areas of ulceration/abrasion, which she states again does not remember injuring anywhere. No drainage at this time. No dusky discoloration. She reports no loss of sensation to touch of right foot, is able to move her toes. Pain on movement of right lower extremity. Noted elevation of CRP 318.8. ESR 23. Lactic acid 1.4. Chest x-ray with cardiomegaly, pulmonary venous hypertension. No fracture on RLE x-ray. Duplex ultrasound was obtained and pending, preliminarily no obvious DVT. Blood culture was obtained. She is empirically started on cefepime, vancomycin. COVID-19 PCR test is pending collection. Review of Systems Const: Reports: fever(s), chills, body aches, change in appetite and malaise Eyes: Denies: change in vision, eye discomfort or eye redness ENMT: Denies: throat pain, oral sores or ear or mastoid pain Card: Denies: chest pain, edema, pre-syncope or dyspnea on exertion Resp: Denies: dyspnea, productive cough, change in phlegm color or hemoptysis GI: Reports: nausea, vomiting and diarrhea; Denies: abdominal pain, constipation, hematochezia or melena : Denies: flank pain, urinary frequency or hematuria Musc: Reports: extremity pain (RLE), extremity swelling and limited range of motion; Denies: back pain or joint swelling Skin/Breast: Reports: erythema and skin tenderness Neuro: Denies: headache(s), numbness in extremities, weakness in extremities, dizziness, confusion or seizure-like activity Endo: Denies: polyuria or polydipsia Pedro/Lymph: Denies: easy bleeding or tender lymph nodes All/Imm: Denies: urticaria or tongue swelling Medications/Allergies Home Medications Medication Instructions Recorded Confirmed Last Taken Type clopidogrel 75 mg tablet 75 mg PO DAILY 06/01/19 01/10/22 Unknown History divalproex 500 mg tablet,delayed 500 mg PO BID 06/01/19 01/10/22 Unknown History release diphenhydramine HCl 25 mg capsule 25 mg PO QID PRN Allergy Symptoms 08/13/19 01/10/22 Unknown History (Benadryl) ondansetron HCl 4 mg tablet 4 mg PO DAILY PRN nausea and 08/13/19 01/10/22 Unkno wn History vomiting rizatriptan 5 mg tablet 5 mg PO DAILY 08/13/19 01/10/22 Unknown History gabapentin 800 mg tablet 800 mg PO QID 09/16/19 01/10/22 Unknown History hydroxyzine HCl 25 mg tablet 25 mg PO QID PRN anxiety #120 tabs 01/05/21 01/10/22 Unknown Rx sertraline 50 mg tablet (Zoloft) 100 mg PO DAILY #60 tabs 01/05/21 01/10/22 Unknown Rx trazodone 100 mg tablet 200 mg PO .HS PRN insomnia #60 tabs 01/05/21 01/10/22 Unknown Rx bupropion HCl 150 mg tablet,12 hr 150 mg PO BID 01/10/22 01/10/22 Unknown History sustained-release cetirizine 10 mg tablet 10 mg PO DAILY 01/10/22 01/10/22 Unknown History edmaruwt-fva-aurps ac 400 1 tab PO DAILY 01/10/22 01/10/22 Unknown History mcg-calcium carb 500 mg-vit K1 20 mcg tablet (Women's 50 Plus Multivitamin) prazosin 5 mg capsule 15 mg PO BEDTIME 01/10/22 01/10/22 Unknown History rosuvastatin 5 mg tablet 5 mg PO BEDTIME 01/10/22 01/10/22 Unknown History Allergies Allergy/AdvReac Type Severity Reaction Status Date / Time aspirin Allergy Intermediate ALGY-Rash Verified 01/10/22 15:05 penicillin G Allergy Intermediate algy-rash Verified 01/10/22 15:05 PFSH Acute PFSH: Medical History Hemiplegic migraine Hypercholesteremia Type 2 diabetes mellitus with diabetic polyneuropathy Surgical History H/O section H/O hysterectomy with oophorectomy History of arthroplasty of right knee History of kidney surgery History of knee surgery multiple right knee Hx of cholecystectomy Family History Mother , at age 58 Cancer Lung, brain, bone Father , at age 79 Heart attack Other Diabetes Heart disease Thyroid disease Denies family history of CAD (coronary artery disease) Clotting disorder Dementia Hyperlipidemia Psychiatric illness Chronic kidney disease (CKD) Suicide Anesthesia complication Bleeding disorder Family history of premature coronary artery disease Lung disease Hypertension Stroke Social History Smoking and tobacco status: never smoked Second hand smoke exposure: No Alcohol intake: never Household members: spouse Marital status: Current occupational status: disabled History of recent travel: No Current gender identity: Female Vitals/I&O/Wt Last Vital Signs Temp 103.3 F H 01/10/22 13:01 Pulse 77 01/10/22 13:01 Resp 20 H 01/10/22 14:18 Pulse Ox 93 01/10/22 13:01 O2 Del Method 01/10/22 13:01 Weight last 48 hrs Weight 122.47 kg Physical Exam Const: COMMON NORMALS: patient oriented x3 GENERAL APPEARANCE: cooperative NUTRITIONAL APPEARANCE: obese morbidly obese ORIENTATION/CONSCIOUSNESS: Yes awake OTHER: Slightly sluggish responses HENMT: COMMON NORMALS: oropharynx normal Neck/C-Spine: COMMON NORMALS: no JVD Resp: COMMON NORMALS: normal respiratory effort and clear to auscultation bilaterally AUSCULTATION: clear to auscultation bilaterally Cardio: COMMON NORMALS: no JVD, regular rhythm, S1 normal heart sound present, S2 normal heart sound present and No murmurs present (Cardio) RHYTHM: regular rhythm HEART SOUNDS: S1 normal heart sound present and S2 normal heart sound present GI: COMMON NORMALS: Normal to inspection, nondistended, normoactive bowel sounds present, Soft to palpation and non-tender PALPATION: Yes Soft to palpation Extremity: COMMON NORMALS: no joint enlargement GENERAL: Yes edema (RLE below knee) Neuro: COMMON NORMALS: patient oriented x3 and moves all extremities SENSORIUM/ORIENTATION: Yes alert Skin: GENERAL SKIN EXAM: erythema (Diffuse irregular erythema RLE below the knee, above the ankle. ), no mottling and other (Tender to palpation. Several small 5 mm or less shallow ulcerations/excori) Data : 01/10/22 14:00 01/10/22 14:00 Micro: Microbiology 01/10/22 14:04 Blood Culture - Preliminary Blood SPECIMEN COLLECTED 01/10/22 13:54 Blood Culture - Preliminary Blood SPECIMEN COLLECTED A&P Assessment and plan (1) Cellulitis: Cellulitis with suspected early developing sepsis, fever 103.3, elevated inflammatory markers ESR 23, CRP 318.8. Diffuse edema of right lower extremity. Diffuse irregular erythema. Tender to palpation. Blood cultures were collec karrie. Continue cefepime, vancomycin, clindamycin empirically. Consider surgical consultation. Past TKA right knee, there is some tenderness around that area and swelling extends to at or just below the knee, no appreciable erythema at the knee. Some minimal erythema of the old healed scar, no dehiscence. Pending final read on duplex ultrasound. At some point consideration with history of knee replacement after evaluation with MRI. Status: Acute (2) Malaise: Additionally some generalized symptoms of not clear etiology, not entirely from the above, with chills, muscle aches, nausea, vomiting, diarrhea, Prepcat, mild headache. COVID-19 PCR/viral panel pending collection. Status: Acute Plan DM2: Does not appear in any treatment. Consistent carb diet. Low-dose SSI. Check UA. History of hemiplegic migraine Initially Obesity Attestations Medical Necessity Statement*: Place in observation for additional assessment management of cellulitis, possible early sepsis, right lower extremity swelling, tenderness, as well as generalized malaise symptoms, nausea vomiting, diarrhea, poor appetite. 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
[2022-01-10] MEDS: vancomycin 1,000 MG in sodium chloride 0.9% 250 ML 250 MG IV (16:11)
[2022-01-10] MEDS: clindamycin 600 MG/50 ML PREMIX 100 MG IV (18:01)
--- NOTE | 2022-01-10 18:03 | CTR_ITS ---
PROCEDURE INFORMATION: Exam: CT Right Lower Extremity Without Contrast, Knee Exam date and time: 01/10/2022 6:23 PM Age: 56 years old Clinical indication: Pain; Knee; Right; Prior surgery; Surgery date: 6+ months; Additional info: Rule out abscess, cellulitis/erythepelas TECHNIQUE: Imaging protocol: CT of the Right lower extremity without contrast was performed. Exam focused on the knee. Radiation optimization: All CT scans at this facility use at least one of these dose optimization techniques: automated exposure control; mA and/or kV adjustment per patient size (includes targeted exams where dose is matched to clinical indication); or iterative reconstruction. COMPARISON: No relevant prior studies available. RADIATION DOSE METRICS: Total DLP (mGy-cm): 565.51 FINDINGS: Tubes, catheters and devices: Knee arthroplasty changes are seen in place with an apparent joint spacer. Bones/joints: Large complex knee joint effusion with some air and hyperdensity possibly reflecting underlying infection and blood products, depending on the clinical history, incompletely visualized given field of view. Calcified heel spur. Soft tissues: Subcutaneous edema in the lower extremity, nonspecific. Distal Achilles tendon degenerative calcification. CT/CT lower leg RT w con [id number] IMPRESSION: 1. Large complex knee joint effusion with some air and hyperdensity possibly reflecting underlying infection and blood products, depending on the clinical history, incompletely visualized given field of view. 2. Knee arthroplasty changes are seen in place with an apparent joint spacer. 3. Subcutaneous edema in the lower extremity, nonspecific. 4. Calcified heel spur. 5. Distal Achilles tendon degenerative calcification.
--- NOTE | 2022-01-10 18:04 | PM.CONSULT ---
Providers/Reason For Consult Consulting Physician/Specialty*: Shailesh Cheng, Surgery Reason for Consult*: Right leg pain Requesting Physician: Dr. Palomino Attending Physician: Babar Washington Primary Care Provider: Jai Hopkins History of Present Illness History of Present Illness Nellie Salas is a 56 year old female she is accompanied by her . She has chronic problems with her right leg, she describes it as on and off episodes of inflammation over the last year or so. She is not sure what was the diagnosis. She developed acute fever, weakness, worsening redness of her right leg for about 3 days. She was thinking that she got a flu. The pain in the leg was getting progressively worse and she decided to seek medical attention. The pain is in the right leg, 10/10, very painful to touch, she describes the pain as located at the skin very superficially. Denies any deep pain in the muscles. She denies any other symptoms at this time. Specifically, denies shortness of breath, chest pain. She has a history of migraines strokelike symptoms. History of depression. Diabetes. History of right knee joint replacement in the past. Review of Systems Narrative: 10 point review of systems is negative except as per HPI Medications/Allergies Home Medications Medication Instructions Recorded Confirmed Last Taken Type clopidogrel 75 mg tablet 75 mg PO DAILY 06/01/19 01/10/22 Unknown History divalproex 500 mg tablet,delayed 500 mg PO BID 06/01/19 01/10/22 Unknown History release diphenhydramine HCl 25 mg capsule 25 mg PO QID PRN Allergy Symptoms 08/13/19 01/10/22 Unknown History (Benadryl) ondansetron HCl 4 mg tablet 4 mg PO DAILY PRN nausea and 08/13/19 01/10/22 Unknown History vomiting rizatriptan 5 mg tablet 5 mg PO DAILY 08/13/19 01/10/22 Unknown History gabapentin 800 mg tablet 800 mg PO QID 09/16/19 01/10/22 Unknown History hydroxyzine HCl 25 mg tablet 25 mg PO QID PRN anxiety #120 tabs 01/05/21 01/10/22 Unknown Rx sertraline 50 mg tablet (Zoloft) 100 mg PO DAILY #60 tabs 01/05/21 01/10/22 Unknown Rx trazodone 100 mg tablet 200 mg PO .HS PRN insomnia #60 tabs 01/05/21 01/10/22 Unknown Rx bupropion HCl 150 mg tablet,12 hr 150 mg PO BID 01/10/22 01/10/22 Unknown History sustained-release cetirizine 10 mg tablet 10 mg PO DAILY 01/10/22 01/10/22 Unknown History qygbydax-rqx-uydap ac 400 1 tab PO DAILY 01/10/22 01/10/22 Unknown History mcg-calcium carb 500 mg-vit K1 20 mcg tablet (Women's 50 Plus Multivitamin) prazosin 5 mg capsule 15 mg PO BEDTIME 01/10/22 01/10/22 Unknown History rosuvastatin 5 mg tablet 5 mg PO BEDTIME 01/10/22 01/10/22 Unknown History Allergies Allergy/AdvReac Type Severity Reaction Status Date / Time aspirin Allergy Intermediate ALGY-Rash Verified 01/10/22 15:05 penicillin G Allergy Intermediate algy-rash Verified 01/10/22 15:05 Current Medications Generic Name Dose Route Start Last Admin Trade Name Deepakq PRN Reason Stop Dose Admin Clindamycin HCl/Dextrose 600 mg in 50 mls @ 100 mls/hr 01/10/22 16:30 01/10/22 18:01 Cleocin IV 100 mls/hr Q8H MAURICE Administration Protocol PFSH Acute PFSH: Medical History Hemiplegic migraine Hypercholesteremia Type 2 diabetes mellitus with diabetic polyneuropathy Surgical History H/O section H/O hysterectomy with oophorectomy History of arthroplasty of right knee History of kidney surgery History of knee surgery multiple right knee Hx of cholecystectomy Family History Mother , at age 58 Cancer Lung, brain, bone Father , at age 79 Heart attack Other Diabetes Heart disease Thyroid disease Denies family history of CAD (coronary artery disease) Clotting disorder Dementia Hyperlipidemia Psychiatric illness Chronic kidney disease (CKD) Suicide Anesthesia complication Bleeding disorder Family history of premature coronary artery disease Lung disease Hypertension Stroke Social History Smoking and tobacco status: never smoked Second hand smoke exposure: No Alcohol intake: never Household members: spouse Marital status: Current occupational status: disabled History of recent travel: No Current gender identity: Female Vitals/I&O/Wt Last Vital Signs Temp 103.3 F H 01/10/22 13:01 Pulse 79 01/10/22 16:30 Resp 20 H 01/10/22 14:18 BP 139/68 01/10/22 17:54 Pulse Ox 93 01/10/22 17:54 O2 Del Method 01/10/22 17:54 01/10/22 01/10/22 01/10/22 06:59 14:59 22:59 Intake Total 1050 / 1050 Balance 1050 / 1050 Weight last 48 hrs Weight 270 lb Physical Exam Narrative: General: Mild distress secondary to pain in the right leg Psych: [AAOx3] Eyes: [sclerae are white] Head/ENT: [normocephalic, symmetric] CV: [regular] pulse, no JVD Lungs: [symmetrical chest rise] Abdomen: [soft, ND] Ext: There are several scratches on the anterior and lateral aspect of the right leg which may be an entrance source for infection. The right leg is diffusely swollen, erythematous all the way up to the knee. Intense pain upon touching the skin. Even lightest pressure on the skin causes intense pain. No drainage from the area of scratches. No evidence of fluctuation Skin: warm Data : 01/10/22 14:00 01/10/22 14:00 Micro: Microbiology 01/10/22 14:04 Blood Culture - Preliminary Blood SPECIMEN COLLECTED 01/10/22 13:54 Blood Culture - Preliminary Blood SPECIMEN COLLECTED Other data: X-ray showed only soft tissue edema. A&P Assessment and plan (1) Erysipelas: Status: Acute (2) Cellulitis: Status: Acute (3) Diabetes: Status: Acute Plan Given elevated CRP and high degree of systemic inflammation, will add cefepime to antibiotic therapy. Continue vancomycin and clindamycin. I will order stat CT scan to evaluate for clinical reaction and reassess her condition after CT scan. If there is no clinical improvement with antibiotics/fluid resuscitation, I will discuss exploration in the operating room to rule out necrotizing fasciitis. However, given clinical presentation, pain limited to the superficial layers of the skin, history of prior similar episodes of recurrent inflammation in the same leg, I think she has cellulitis/erysipelas rather than necrotizing fasciitis. LRINEC score is 7; intermediate probability of necrotizing fasciitis, she will require close observation, potential intervention today in case of deterioration or if there is no improvement Mild hyponatremia. I will defer management to medicine. History of new prosthesis. At this time and does not look like a joint infection. CT scan will allow to evaluate better as well. I discussed the clinical picture, natural course with the patient and her . I explained that I will reassess the leg after CT scan is performed and we will discuss further management. Also, would like to obtain DVT scan. 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
[2022-01-10] MEDS: oxyCODONE-APAP 5-325 mg Tablet 1 TAB PO (19:11)
[2022-01-10] MEDS: sodium chloride 0.9% 500 ML 999 ML IV (19:14)
--- NOTE | 2022-01-10 20:04 | PM.PN ---
Subjective Subjective: CT scan was reviewed. The patient was reexamined. She feels about the same, not worse. Pain medications give her some relief. She also says that her leg hurts as much as the rest of the body, she thinks that the fluid might very sensitive. Manipulation from normal. Left leg she is sensitive pain is 10/10 as well. The same goes about upper extremities and her body. There is no obvious fluid collection in the lower leg on CT scan. Also the blood vessels in the fascial layer are bright and are taking contrast, no evidence of thrombosis. There is a fluid collection associated with the knee joint. There is a very small focus of air as well. Concerned about infection. The patient stated that the procedure was done 6 months ago and was uncomplicated and she never had any problem with the prosthesis. In any way, I would recommend orthopedic consult to rule out infection of the prosthetic joint. I discussed exploration of the lower extremity for necrotizing fasciitis versus observation. I explained that my suspicious is overall low, I think it safe to observe her overnight and reassess in the morning. At least partially for pain is related to intoxication, pain perception, it is all over the body and not limited just to the right leg. The patient agreed. Small risk of progression of the infection was discussed as well. In case she is doing any worse, I will proceed with exploration and exam of the fascia right away. Vitals/I&O/Wt Last Vital Signs Temp 103.3 F H 01/10/22 13:01 Pulse 72 01/10/22 19:17 Resp 20 H 01/10/22 19:11 BP 133/78 01/10/22 19:17 Pulse Ox 94 01/10/22 19:17 O2 Del Method 01/10/22 19:17 01/10/22 01/10/22 01/10/22 06:59 14:59 22:59 Intake Total 1350 / 1350 Balance 1350 / 1350 Weight last 48 hrs Weight 270 lb Data : 01/10/22 14:00 01/10/22 14:00 Micro: Microbiology 01/10/22 14:04 Blood Culture - Preliminary Blood SPECIMEN COLLECTED 01/10/22 13:54 Blood Culture - Preliminary Blood SPECIMEN COLLECTED Attestations Medical Necessity Statement*: R leg cellulitis Coding Level of Care Code Acute Marine 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
[2022-01-10 20:23] LABS: Adenovirus Not Detected (NOT DETECT); Chlamydia Pneumoniae Not Detected (NOT DETECT); Coronavirus 229E,HKU1,NL63,OC4 Not Detected (NOT DETECT); Human Metapneumovirus Not Detected (NOT DETECT); Human Rhinovirus/Enterovirus Not Detected (NOT DETECT); Influenza A Not Detected (NOT DETECT); Influenza A H1 Not Detected (NOT DETECT); Influenza A H1-2009 Not Detected (NOT DETECT); Influenza A H3 Not Detected (NOT DETECT); Influenza B Not Detected (NOT DETECT); Mycoplasma Pneumoniae Not Detected (NOT DETECT); Parainfluenza Virus Type 1 Not Detected (NOT DETECT); Parainfluenza Virus Type 2 Not Detected (NOT DETECT); Parainfluenza Virus Type 3 Not Detected (NOT DETECT); Parainfluenza Virus Type 4 Not Detected (NOT DETECT); Respiratory Syncytial Virus A Not Detected (NOT DETECT); Respiratory Syncytial Virus B Not Detected (NOT DETECT); SARS-COV-2 Not Detected (NOT DETECT)
--- NOTE | 2022-01-10 20:47 | PC.PHAR ---
Vancomyin is dosed at 1250mg IVPB every 12 hours to produce a predicted trough level of 17.33 (population based pharmacokinetic analysis). A trough level has been ordered from the lab to be obtained before the fourth dose to confirm and adjust if needed.
[2022-01-11] MEDS: enoxaparin 40 mg/0.4 mL Syringe SUBCUT ×2 (00:44→09:14)
[2022-01-11] MEDS: lactated ringers 1,000 ML 125 ML IV ×2 (00:45→09:14)
[2022-01-11] MEDS: acetaminophen 325 mg Tablet 650 MG PO (01:00)
[2022-01-11 02:25] VITALS: RESP 20
[2022-01-11] MEDS: clindamycin 600 MG/50 ML PREMIX 100 MG IV ×2 (02:25→09:13)
[2022-01-11] MEDS: morphine 4 mg/mL SDV 1 mL 2 MG IVP ×2 (02:25→07:35)
[2022-01-11] MEDS: cefepime 2,000 MG in sodium chloride 0.9% (plus) 50 ML 100 MG IV (03:25)
[2022-01-11 04:43] VITALS: BP 126/72; PULSE 67; RESP 18; TEMP 37.5; O2SAT 94
[2022-01-11] MEDS: vancomycin 1,250 MG/250 ML PIGGYBACK 250 MG IV (04:54)
[2022-01-11 06:22] VITALS: BP 143/73; PULSE 68; RESP 20; O2SAT 99
[2022-01-11 07:35] VITALS: RESP 17; O2SAT 99
--- NOTE | 2022-01-11 07:43 | PC.NURSE ---
shift change report received from SOY Veras Pt is awake and dozing intermittently. She rates her pain at 10/10 in her right leg. RN from night nurse assisted pt to get into a gown and get adjusted in bed. Pt has 20g in R AC that has LR running to gravity and Vancomycin on pump. Morphine PRN given IVP. Vitals stable and documented
[2022-01-11 07:46] VITALS: BP 126/72; PULSE 68; RESP 17; O2SAT 99
[2022-01-11 09:43] LABS: Basophils % 0.3 %; Hematocrit 32.4 % (37.0-47.0); Hemoglobin 10.4 g/dL (11.5-15.3); Lymphocytes # 0.2 10^3/uL (0.8-4.8); Lymphocytes % 2.5 %; Mean Corpuscular HGB Conc 32.1 g/dL (30.0-36.0); Mean Corpuscular Hemoglobin 29.1 pg (28.0-34.0); Mean Corpuscular Volume 90.8 fl (81-99); Mean Platelet Volume 10.7 fL (7.4-10.4); Monocytes # 0.6 10^3/uL (0.2-0.9); Monocytes % 6.3 %; Neutrophils # 8.79 10^3/uL (1.8-7.7); Nucleated Red Blood Cells % 0 %; Platelet Count 167 10^3/cmm (130-400); Red Blood Count 3.57 10^6/uL (4.1-5.3); Red Cell Distribution Width 14.2 % (12.1-15.1); White Blood Count 9.8 10^3/uL (4.0-10.0)
--- NOTE | 2022-01-11 09:53 | PM.CONSULT ---
Providers/Reason For Consult Consulting Physician/Specialty*: Paul Faustin MD; orthopedic surgery Reason for Consult*: Cellulitis right leg possible deep joint infection Primary Care Provider: Jai Hopkins History of Present Illness History of Present Illness Nellie Salas is a 56 year old female diabetic patient. She has a history of bilateral knee pain. She underwent elective right total knee arthroplasty by Dr. Mack barclay in [facility] in March. She reportedly had an unremarkable hospitalization and it was doing well. Approximately 1 week ago she describes onset of flulike symptoms. She really is not able to give me any specifics. She states she began noting fever and GI distress and developing progressive pain in her knee and leg. She presented to our emergency room last night. She is evaluated by Dr. May the emergency room medicine initially necrotizing fasciitis was entertained. She was begun on vancomycin and cefepime. I was not consulted last night. The patient was under the care of an orthopedist in the [place] and recently deformity surgery and had a relationship with him I suggested transfer. Apparently, [facility] was not excepting patients and a transfer could be is facilitated last evening. The patient was febrile since arrival but has not been febrile since. She describes continued pain in her knee and leg. Medications/Allergies Home Medications Medication Instructions Recorded Confirmed Last Taken Type clopidogrel 75 mg tablet 75 mg PO DAILY 06/01/19 01/10/22 Unknown History divalproex 500 mg tablet,delayed 500 mg PO BID 06/01/19 01/10/22 Unknown History release diphenhydramine HCl 25 mg capsule 25 mg PO QID PRN Allergy Symptoms 08/13/19 01/10/22 Unknown History (Benadryl) ondansetron HCl 4 mg tablet 4 mg PO DAILY PRN nausea and 08/13/19 01/10/22 Unknown History vomiting rizatriptan 5 mg tablet 5 mg PO DAILY 08/13/19 01/10/22 Unknown History gabapentin 800 mg tablet 800 mg PO QID 09/16/19 01/10/22 Unknown History hydroxyzine HCl 25 mg tablet 25 mg PO QID PRN anxiety #120 tabs 01/05/21 01/10/22 Unknown Rx sertraline 50 mg tablet (Zoloft) 100 mg PO DAILY #60 tabs 01/05/21 01/10/22 Unknown Rx trazodone 100 mg tablet 200 mg PO .HS PRN insomnia #60 tabs 01/05/21 01/10/22 Unknown Rx bupropion HCl 150 mg tablet,12 hr 150 mg PO BID 01/10/22 01/10/22 Unknown History sustained-release cetirizine 10 mg tablet 10 mg PO DAILY 01/10/22 01/10/22 Unknown History yjjwoulb-imk-ieqmi ac 400 1 tab PO DAILY 01/10/22 01/10/22 Unknown History mcg-calcium carb 500 mg-vit K1 20 mcg tablet (Women's 50 Plus Multivitamin) prazosin 5 mg capsule 15 mg PO BEDTIME 01/10/22 01/10/22 Unknown History rosuvastatin 5 mg tablet 5 mg PO BEDTIME 01/10/22 01/10/22 Unknown History Allergies Allergy/AdvReac Type Severity Reaction Status Date / Time aspirin Allergy Intermediate ALGY-Rash Verified 01/10/22 15:05 penicillin G Allergy Intermediate algy-rash Verified 01/10/22 15:05 Current Medications Generic Name Dose Route Start Last Admin Trade Name Deepakq PRN Reason Stop Dose Admin Enoxaparin Sodium 40 mg 01/10/22 20:15 01/11/22 09:14 Enoxaparin 40 Mg/0.4 Ml Syringe SUBCUT 40 mg BID MAURICE Administration Clindamycin HCl/Dextrose 600 mg in 50 mls @ 100 mls/hr 01/10/22 16:30 01/11/22 09:13 Cleocin IV 100 mls/hr Q8H MAURICE Administration Protocol Cefepime HCl 2,000 mg/ Sodium 50 mls @ 100 mls/hr 01/11/22 02:00 01/11/22 04:53 Chloride IV Infused Q12H MAURICE Infusion Protocol Lactated Ringer's 1,000 mls @ 125 mls/hr 01/10/22 20:15 01/11/22 09:14 Lactated Ringers IV 125 mls/hr .Q8H MAURICE Administration Vancomycin/PEG/NADA/Lysine/Water 1,250 mg in 250 mls @ 250 mls/hr 01/11/22 04:00 01/11/22 05:54 Vancocin IV Infused Q12H MAURICE Infusion Morphine Sulfate 2 mg 01/10/22 20:32 01/11/22 07:35 Morphine 4 Mg/Ml Sdv 1 Ml IVP 2 mg Q2H PRN Administration SEVERE PAIN PFSH Acute PFSH: Medical History Hemiplegic migraine Hypercholesteremia Type 2 diabetes mellitus with diabetic polyneuropathy Surgical History H/O section H/O hysterectomy with oophorectomy History of arthroplasty of right knee History of kidney surgery History of knee surgery multiple right knee Hx of cholecystectomy Family History Mother , at age 58 Cancer Lung, brain, bone Father , at age 79 Heart attack Other Diabetes Heart disease Thyroid disease Denies family history of CAD (coronary artery disease) Clotting disorder Dementia Hyperlipidemia Psychiatric illness Chronic kidney disease (CKD) Suicide Anesthesia complication Bleeding disorder Family history of premature coronary artery disease Lung disease Hypertension Stroke Social History Smoking and tobacco status: never smoked Second hand smoke exposure: No Alcohol intake: never Household members: spouse Marital status: Current occupational status: disabled History of recent travel: No Current gender identity: Female Vitals/I&O/Wt Last Vital Signs Temp 99.5 F 01/11/22 04:43 Pulse 68 01/11/22 07:46 Resp 17 01/11/22 07:46 BP 126/72 01/11/22 07:46 Pulse Ox 99 01/11/22 07:46 O2 Del Method 01/11/22 07:46 O2 Flow Rate 2 01/11/22 07:46 01/10/22 01/11/22 01/11/22 22:59 06:59 14:59 Intake Total 1850 / 1850 350 / 2200 1000 / 1000 Balance 1850 / 1850 350 / 2200 1000 / 1000 Weight last 48 hrs Weight 270 lb Physical Exam Narrative: Examination of the right lower extremity the patient has swelling in her right knee and erythema in her proximal calf. She is fairly tender about the knee and calf. She has pain with any attempts to move the right knee and I can only flex her to about 30 degrees. Her right foot has a palpable dorsalis pedis pulse. Sensation intact to light touch in the right foot Mishel extends right toes Data : 01/11/22 09:35 01/10/22 14:00 Other Labs: ESR was elevated at 23 and C-reactive protein elevated at 318.8 Micro: Microbiology 01/10/22 14:04 Blood Culture - Preliminary Blood SPECIMEN COLLECTED 01/10/22 13:54 Blood Culture - Preliminary Blood SPECIMEN COLLECTED Other CT: Radiologist's impression: CT report is reviewed from 01/10/2022. Patient with complex knee joint effusion. A total knee is in place. A&P Assessment and plan (1) Infection of total right knee replacement: The patient's history, physical exam, and laboratory findings are all consistent with a septic joint. Fortunately antibiotics have been started and the results of her aspirate may be less than ideal. I think work-up for infection is mandatory. The patient is currently under orthopedics care in [facility]. I contacted [facility] and Dr. Barclay has made arrangements for transfer. Status: Acute Coding Level of Care Code Acute Plug Sorter for Jordon Caruso Diagnoses Infection of total right knee replacement T84.53XA
[2022-01-11 10:04] LABS: Alanine Aminotransferase 13 U/L (0-33); Albumin Level 2.8 g/dL (3.5-5.2); Alkaline Phosphatase 146 U/L (35-105); Anion Gap 14.5 (5-19); Aspartate Amino Transferase 21 U/L (0-32); Blood Urea Nitrogen 15 mg/dL (6-20); Calcium 8.3 mg/dL (8.5-10.5); Carbon Dioxide 26 mmol/L (22-29); Chloride 93 mmol/L (98-107); Globulin 3.2 g/dL (1.3-4.6); Glomerular Filtration Rate 74.7 mL/min (90-130); Glucose 108 mg/dL (65-115); Osmolality Calculated 271 mOsm/kg (285-295); Potassium 3.5 mmol/L (3.5-5.1); Sodium 130 mmol/L (136-145); Total Bilirubin 0.4 mg/dL (0.15-1.2)
--- NOTE | 2022-01-11 10:20 | P.PN_ITS ---
Subjective Subjective: The patient was arranged to go to [facility] for orthopedic surgeon, however, the bed is not available yet. She is pending transfer. This morning the patient still complaining of pain. When I entered the room, she is asleep, soon as she wakes up she stated that she has pain 10/10 all over her body. He reports pain 10/10 in the right leg, in the left leg, in both upper extremities. This was confirmed in the presence of the bedside nurse. The patient stated that pain in the right leg is worse than in the left, however, when I slightly squeezed the right and left leg, she stated that the pain is the same. She did not have any more episodes of fever overnight. Blood cultures are negative to date. I reviewed her labs. White blood cell count remains normal. Lactate is normal. Serum creatinine remains normal. Vitals/I&O/Wt Last Vital Signs Temp 99.5 F 01/11/22 04:43 Pulse 68 01/11/22 07:46 Resp 17 01/11/22 07:46 BP 126/72 01/11/22 07:46 Pulse Ox 99 01/11/22 07:46 O2 Del Method 01/11/22 07:46 O2 Flow Rate 2 01/11/22 07:46 01/10/22 01/11/22 01/11/22 22:59 06:59 14:59 Intake Total 1850 / 1850 350 / 2200 1000 / 1000 Balance 1850 / 1850 350 / 2200 1000 / 1000 Weight last 48 hrs Weight 270 lb Physical Exam Narrative: General: No acute distress, the patient is half-asleep and need to be awakened to continue the dialogue. She complains of pain all over the body, 10/10, both upper extremities and lower extremities. Again, her complaints were confirmed in the presence of the bedside nurse. Psych: [AAOx3] Eyes: [sclerae are white] Head/ENT: [normocephalic, symmetric] CV: [regular] pulse, no JVD Lungs: [symmetrical chest rise] Abdomen: [soft, ND] Ext: The leg is much less erythematous especially in the lower third of it. Edema slightly improved as well. Overall, appears to be some positive response to ongoing treatment. Skin: warm Data : 01/11/22 09:35 01/11/22 09:35 Micro: Microbiology 01/10/22 14:04 Blood Culture - Preliminary Blood SPECIMEN COLLECTED 01/10/22 13:54 Blood Culture - Preliminary Blood SPECIMEN COLLECTED A&P Assessment and plan (1) Infection of total right knee replacement: Status: Acute (2) Erysipelas: Status: Acute (3) Cellulitis: Status: Acute (4) Hyponatremia: Status: Acute Plan Physiologically, the patient is doing better. Erythema of the right leg is improving, it did not spread over the marking to the left last night. Swelling of the leg is slightly improved as well. Given the presence of the scabs and abrasions on the anterior aspect of the leg, I performed nonexcisional debridement of the wounds with a pickup and wet gauze. The patient provided a verbal consent in the presence of the bedside nurse. Scabs over the anterior surface of the right leg were removed and underlying tissue were examined. There was no purulent drainage, there was no tunneling of any sort. There was minimal amount of serous fluid and the several scabs, no gross signs of infection. Only superficial scabbing within the epidermis were removed, there is abrasions/minor wounds did not penetrate even through the dermis. Wet gauze dressing was applied and secured with Kerlix. At this time I do not think that the patient has necrotizing fasciitis. It seems that her problem is related to the fluid collection around the prosthetic joint which is likely infected with subsequent changes of the underlying skin. Multiple abrasions may also contribute to widespread cellulitis. However, it is definitely improving compared to yesterday. She is already scheduled to be transferred to [facility]. To avoid any confusion, I will recommend for a general surgeon to see the patient at [facility] to provide continuation of care. -Continue antibiotic therapy including vancomycin, cefepime, clindamycin. General surgery will continue to follow while the patient remains in this hospital to monitor for progression of the disease indicates any intervention will be required. -Wet-to-dry dressing foreign exchange dealer the open wounds of the right leg twice a day. Keep the leg elevated. Discussed with the bedside nurse. Attestations Medical Necessity Statement*: Infection of the prosthetic joint Coding Level of Care Code Acute Control System Computer Scientist for [facility] Diagnoses Infection of total right knee replacement T84.53XA Erysipelas A46 Cellulitis L03.90 Hyponatremia E87.1
[2022-01-11 10:55] VITALS: BP 119/70; PULSE 68; RESP 17; O2SAT 99
--- NOTE | 2022-01-11 22:39 | P.TS_ITS ---
Transfer Summary Providers Date of Discharge/Transfer: 01/11/22 Primary Care Provider: Jai Hopkins Transfer Plans: Anticipated date of transfer: 01/11/22 . Diagnoses at Discharge Discharge Diagnosis (1) Infection of total right knee replacement: Status: Acute (2) Erysipelas: Status: Acute (3) Cellulitis: Status: Acute (4) Hyponatremia: Status: Acute Reason for Visit Reason for Visit r leg pain Hospital Course Hospital Course 56-year-old lady with diabetes, history of bilateral knee pain, R TKA in [facility] in March, presents is upset about 4 days of malaise, chills, fever, nausea, vomiting, diarrhea, but also worsening erythema and swelling of the right lower extremity, with finding of diffuse edema, erythema of right lower extremity below the knee, with tenderness to palpation, was started on antibiotics and evaluated by surgery with obtained CT of right lower extremity with finding of large complex knee joint effusion with some air and hyperdensity possibly reflecting underlying infection and blood products. Incompletely visualized given [id number]. Knee arthroplasty with an apparent joint spacer. Subcutaneous edema in lower extremity, calcified heel spur, distal Achilles tendon degenerative calcification. She was assessed also by orthopedic surgery with findings concerning for septic joint. Arrangements were made for her for transfer for continued care by her orthopedic team in [facility] where she has been under care of Dr. Barclay. Physical Exam Const: COMMON NORMALS: patient oriented x3 and alert GENERAL APPEARANCE: cooperative NUTRITIONAL APPEARANCE: obese morbidly obese ORIENTATION/CONSCIOUSNESS: Yes awake OTHER: Slightly sluggish responses HENMT: COMMON NORMALS: oropharynx normal Neck/C-Spine: COMMON NORMALS: no JVD Resp: COMMON NORMALS: normal respiratory effort and clear to auscultation bilaterally AUSCULTATION: clear to auscultation bilaterally Cardio: COMMON NORMALS: no JVD, regular rhythm, S1 normal heart sound present, S2 normal heart sound present and No murmurs present (Cardio) RHYTHM: regular rhythm HEART SOUNDS: S1 normal heart sound present and S2 normal heart sound present GI: COMMON NORMALS: Normal to inspection, nondistended, normoactive bowel sounds present, Soft to palpation and non-tender PALPATION: Yes Soft to palpation Extremity: COMMON NORMALS: no joint enlargement GENERAL: Yes edema (RLE below knee) Neuro: COMMON NORMALS: patient oriented x3 and moves all extremities SENSORIUM/ORIENTATION: Yes alert Skin: GENERAL SKIN EXAM: erythema (Mild improvement in diffuse irregular erythema RLE below the knee, above th), no mottling and other (Tender to palpation. Several small 5 mm or less shallow ulcerations/excori) TS Data Studies Completed and Pending Pending at discharge Category Date Time Status Blood Culture Stat Lab 01/10/22 14:04 Results Labs from last 24 hours 01/11/22 01/11/22 01/11/22 09:35 09:35 09:35 WBC 9.8 RBC 3.57 L Hgb 10.4 L Hct 32.4 L MCV 90.8 MCH 29.1 MCHC 32.1 RDW 14.2 Plt Count 167 MPV 10.7 H Neut % (Auto) 90.0 Lymph % (Auto) 2.5 [place] % (Auto) 6.3 Eos % (Auto) 0.0 Baso % (Auto) 0.3 Neut # (Auto) 8.79 H Lymph # (Auto) 0.2 L [place] # (Auto) 0.6 Eos # (Auto) 0.0 Baso # (Auto) 0.0 Nucleated RBC % (auto) 0 Nucleated RBCs # 0.0 Sodium 130 L Potassium 3.5 Chloride 93 L Carbon Dioxide 26 Anion Gap 14.5 BUN 15 Creatinine 0.8 GFR Calculation 74.7 L Glucose 108 Calculated Osmolality 271 L Lactate 1.0 Calcium 8.3 L Total Bilirubin 0.4 AST 21 ALT 13 Alkaline Phosphatase 146 H Total Protein 6.0 L Albumin 2.8 L Globulin 3.2 Completed Studies During Hospitalization Category Date Time Status CT lower leg RT w con [id number] Stat Cat Scan 01/10/22 18:03 Completed XR chest 1V portable [id number] Stat Exams 01/10/22 13:25 Completed XR tibia fibula RT 2V [id number] Stat Exams 01/10/22 13:25 Completed US venous duplex lower extremity RT [CV venous duplex Ultrasound 01/10/22 13:[place] [id number]] Stat Laboratory Last Values WBC 9.8 10^3/uL (4.0-10.0) 01/11/22 09:35 RBC 3.57 10^6/uL (4.1-5.3) L 01/11/22 09:35 Hgb 10.4 g/dL (11.5-15.3) L 01/11/22 09:35 Hct 32.4 % (37.0-47.0) L 01/11/22 09:35 MCV 90.8 fl (81-99) 01/11/22 09:35 MCH 29.1 pg (28.0-34.0) 01/11/22 09:35 MCHC 32.1 g/dL (30.0-36.0) 01/11/22 09:35 RDW 14.2 % (12.1-15.1) 01/11/22 09:35 Plt Count 167 10^3/cmm (130-400) 01/11/22 09:35 MPV 10.7 fL (7.4-10.4) H 01/11/22 09:35 Neut % (Auto) 90.0 % 01/11/22 09:35 Lymph % (Auto) 2.5 % 01/11/22 09:35 [place] % (Auto) 6.3 % 01/11/22 09:35 Eos % (Auto) 0.0 % 01/11/22 09:35 Baso % (Auto) 0.3 % 01/11/22 09:35 Neut # (Auto) 8.79 10^3/uL (1.8-7.7) H 01/11/22 09:35 Lymph # (Auto) 0.2 10^3/uL (0.8-4.8) L 01/11/22 09:35 [place] # (Auto) 0.6 10^3/uL (0.2-0.9) 01/11/22 09:35 Eos # (Auto) 0.0 10^3/uL (0.0-0.8) 01/11/22 09:35 Baso # (Auto) 0.0 10^3/uL (0.0-0.1) 01/11/22 09:35 Nucleated RBC % (auto) 0 % 01/11/22 09:35 Nucleated RBCs # 0.0 /100WBC 01/11/22 09:35 ESR 23 mm/hr (0-15) H 01/10/22 14:00 Sodium 130 mmol/L (136-145) L 01/11/22 09:35 Potassium 3.5 mmol/L (3.5-5.1) 01/11/22 09:35 Chloride 93 mmol/L (98-107) L 01/11/22 09:35 Carbon Dioxide 26 mmol/L (22-29) 01/11/22 09:35 Anion Gap 14.5 (5-19) 01/11/22 09:35 BUN 15 mg/dL (6-20) 01/11/22 09:35 Creatinine 0.8 mg/dL (0.5-0.9) 01/11/22 09:35 GFR Calculation 74.7 mL/min (90-130) L 01/11/22 09:35 Glucose 108 mg/dL (65-115) 01/11/22 09:35 Calculated Osmolality 271 mOsm/kg (285-295) L 01/11/22 09:35 Lactate 1.0 mmol/L (0.5-2.2) 01/11/22 09:35 Calcium 8.3 mg/dL (8.5-10.5) L 01/11/22 09:35 Total Bilirubin 0.4 mg/dL (0.15-1.2) 01/11/22 09:35 AST 21 U/L (0-32) 01/11/22 09:35 ALT 13 U/L (0-33) 01/11/22 09:35 Alkaline Phosphatase 146 U/L (35-105) H 01/11/22 09:35 C-Reactive Protein 318.8 mg/L (0.0-4.9) H 01/10/22 14:00 Total Protein 6.0 g/dL (6.6-8.7) L 01/11/22 09:35 Albumin 2.8 g/dL (3.5-5.2) L 01/11/22 09:35 Globulin 3.2 g/dL (1.3-4.6) 01/11/22 09:35 Coronavirus 229E (PCR) Not detected (NOT DETECT) 01/10/22 18:05 SARS-CoV-2 (PCR) Not detected (NOT DETECT) 01/10/22 18:05 Radiology Impressions Chest X-Ray 01/10/22 13:25 IMPRESSION: Cardiomegaly with pulmonary venous hypertension. Tibia/Fibula X-Ray 01/10/22 13:25 IMPRESSION: Diffuse soft tissue swelling as above. Lower Extremity CT 01/10/22 18:03 IMPRESSION: 1. Large complex knee joint effusion with some air and hyperdensity possibly reflecting underlying infection and blood products, depending on the clinical history, incompletely visualized given field of view. 2. Knee arthroplasty changes are seen in place with an apparent joint spacer. 3. Subcutaneous edema in the lower extremity, nonspecific. 4. Calcified heel spur. 5. Distal Achilles tendon degenerative calcification. ADDENDUM: 01/11/22 [id number] Exam was performed with intravenous contrast. Recent Clincial Data Last Vital Signs Temp 99.5 F 01/11/22 04:43 Pulse 68 01/11/22 10:55 Resp 17 01/11/22 10:55 BP 119/70 01/11/22 10:55 Pulse Ox 99 01/11/22 10:55 O2 Del Method 01/11/22 07:46 O2 Flow Rate 2 01/11/22 07:46 Vital Signs Pulse Resp BP Pulse Ox 01/11/22 10:55 68 17 119/70 99 Intake & Output/Weight 01/09/22 01/10/22 01/11/22 01/12/22 06:59 06:59 06:59 06:59 Intake Total 2200 / 2200 1000 / 1000 Balance 2200 / 2200 1000 / 1000 Weight 122.47 kg Vitals Last Vital Signs Temp 99.5 F 01/11/22 04:43 Pulse 68 01/11/22 10:55 Resp 17 01/11/22 10:55 BP 119/70 01/11/22 10:55 Pulse Ox 99 01/11/22 10:55 O2 Del Method 01/11/22 07:46 O2 Flow Rate 2 01/11/22 07:46 TS Medications Medications Discontinued Medications Acetaminophen (Acetaminophen 500 Mg Tablet) 500 mg PO ONCE ONE Stop: 01/10/22 13:26 Last Admin: 01/10/22 14:18 Dose: 500 mg Acetaminophen (Acetaminophen 325 Mg Tablet) 650 mg PO ONCE ONE Stop: 01/11/22 00:46 Last Admin: 01/11/22 01:00 Dose: 650 mg Enoxaparin Sodium (Enoxaparin 40 Mg/0.4 Ml Syringe) 40 mg SUBCUT BID MAURICE Last Admin: 01/11/22 09:14 Dose: 40 mg Sodium Chloride (Sodium Chloride 0.9%) 1,000 mls @ 999 mls/hr IV .Q1H1M ONE Stop: 01/10/22 14:25 Last Infusion: 01/10/22 16:12 Dose: Infused Vancomycin HCl 1,000 mg/ (Sodium Chloride) 250 mls @ 250 mls/hr IV ONCE ONE; Protocol Stop: 01/10/22 14:24 Last Infusion: 01/10/22 18:05 Dose: Infused Cefepime HCl 1,000 mg/ Sodium (Chloride) 50 mls @ 100 mls/hr IV ONCE ONE; Protocol Stop: 01/10/22 13:54 Last Infusion: 01/10/22 16:12 Dose: Infused Clindamycin HCl/Dextrose (Cleocin) 600 mg in 50 mls @ 100 mls/hr IV Q8H MAURICE; Protocol Last Admin: 01/11/22 09:13 Dose: 100 mls/hr Cefepime HCl 2,000 mg/ Sodium (Chloride) 50 mls @ 100 mls/hr IV Q12H MAURICE; Protocol Last Infusion: 01/11/22 04:53 Dose: Infused Sodium Chloride (Sodium Chloride 0.9%) 500 mls @ 999 mls/hr IV .Q31M ONE Stop: 01/10/22 19:20 Last Infusion: 01/10/22 20:45 Dose: Infused Lactated Ringer's (Lactated Ringers) 1,000 mls @ 125 mls/hr IV .Q8H MAURICE Last Admin: 01/11/22 09:14 Dose: 125 mls/hr Vancomycin/PEG/NADA/Lysine/Water (Vancocin) 1,250 mg in 250 mls @ 250 mls/hr IV Q12H MAURICE Last Infusion: 01/11/22 05:54 Dose: Infused Iohexol (Iohexol 350 Mg/Ml 100 Ml Btl) 80 ml .ROUTE .STK-MED ONE Stop: 01/10/22 13:01 Morphine Sulfate (Morphine 4 Mg/Ml Sdv 1 Ml) 4 mg IVP ONCE ONE Stop: 01/10/22 13:27 Last Admin: 01/10/22 14:18 Dose: 4 mg Morphine Sulfate (Morphine 4 Mg/Ml Sdv 1 Ml) 2 mg IVP Q2H PRN PRN Reason: SEVERE PAIN Last Admin: 01/11/22 07:35 Dose: 2 mg Oxycodone/Acetaminophen (Oxycodone-Apap 5-325 Mg Tablet) 1 tab PO Q4H PRN PRN Reason: MODERATE PAIN Last Admin: 01/10/22 19:11 Dose: 1 tab Allergies aspirin Allergy (Intermediate, Verified 01/10/22 15:05) ALGY-Rash penicillin G Allergy (Intermediate, Verified 01/10/22 15:05) algy-rash Home Medications clopidogrel 75 mg tablet 75 mg PO DAILY 06/01/19 [History Confirmed 01/10/22] divalproex 500 mg tablet,delayed release 500 mg PO BID 06/01/19 [History Confirmed 01/10/22] diphenhydramine HCl 25 mg capsule (Benadryl) 25 mg PO QID PRN Allergy Symptoms 08/13/19 [History Confirmed 01/10/22] ondansetron HCl 4 mg tablet 4 mg PO DAILY PRN nausea and vomiting 08/13/19 [History Confirmed 01/10/22] rizatriptan 5 mg tablet 5 mg PO DAILY 08/13/19 [History Confirmed 01/10/22] gabapentin 800 mg tablet 800 mg PO QID 09/16/19 [History Confirmed 01/10/22] hydroxyzine HCl 25 mg tablet 25 mg PO QID PRN anxiety #120 tabs 01/05/21 [Rx Confirmed 01/10/22] sertraline 50 mg tablet (Zoloft) 100 mg PO DAILY #60 tabs 01/05/21 [Rx Confirmed 01/10/22] trazodone 100 mg tablet 200 mg PO .HS PRN insomnia #60 tabs 01/05/21 [Rx Confirmed 01/10/22] bupropion HCl 150 mg tablet,12 hr sustained-release 150 mg PO BID 01/10/22 [History Confirmed 01/10/22] cetirizine 10 mg tablet 10 mg PO DAILY 01/10/22 [History Confirmed 01/10/22] mdvurwjz-abi-pqtru ac 400 mcg-calcium carb 500 mg-vit K1 20 mcg tablet (Women's 50 Plus Multivitamin) 1 tab PO DAILY 01/10/22 [History Confirmed 01/10/22] prazosin 5 mg capsule 15 mg PO BEDTIME 01/10/22 [History Confirmed 01/10/22] rosuvastatin 5 mg tablet 5 mg PO BEDTIME 01/10/22 [History Confirmed 01/10/22] Discharge Plan Discharge Patient Disposition: Xfer Short-Term Hosp Clinical Impression: Cellulitis, Diabetes, Cough, Body aches Condition: Stable Referrals: Jai Hopkins [Primary Care Provider] - Transfer Attestations Time Spent in Transfer Care: greater than 30 min Quality Metrics Clinical Quality Measures [ No reported AMI, CVA or VTE this stay] Coding Level of Care Code Acute Family Practice Physician for g Fwd Diagnoses Infection of total right knee replacement T84.53XA Erysipelas A46 Cellulitis L03.90 Hyponatremia E87.1
--- NOTE | 2022-01-14 14:30 | PC.NURSE ---
This RN received critical lab result of 2 positive blood cultures for Group A strep. This RN called the [facility] in [place], [place], where the patient was transferred, and reported to Abbey OLIVIER.
== END 2022-01-11 10:59 | disposition short-term general hospital (02) ==
LOC: ER 14:39 → MEDSURG 18:01 → ER 01-11 09:57
PROVIDERS: Emergency Medicine; Surgery; Emergency Provider Emergency Medicine; PCP Family Medicine
DX: L03.115 Cellulitis of right lower limb (principal); E11.42 Type 2 diabetes mellitus with diabetic polyneuropathy; E78.00 Pure hypercholesterolemia, unspecified; M79.604 Pain in right leg; R05.9 Cough, unspecified; M79.10 Myalgia, unspecified site
CPT/HCPCS: 12345; 36415; 71045; 73590; 73701; 80048; 80053; 83605; 85025; 85651; 86140; 87040; 87186; 87205; 87635; 93971; 96365; 96366; 96367; 96372; 96375; 96376; 99285; J0692; J1650; J2270; J3370; J3490; J7030; J7040; J7050; Q9967

== ENCOUNTER 2023-04-02 08:59 | Outpatient (CLI) | payer BC, MEDICAID, SELFPAY ==
--- NOTE | 2023-04-02 09:01 | MM_ITS ---
WS: [id number] BILATERAL SCREENING DIGITAL TOMOSYNTHESIS MAMMOGRAM WITH CAD HISTORY: SCREENING COMPARISON: 02/16/2020, 03/17/2018 Bilateral CC and MLO views with tomosynthesis and synthetic mammography submitted. Computer aided det ection analyzed. Breast composition: There are scattered areas of fibroglandular density. No suspicious masses, microc alcifications or architectural distortion. There are few scattered benign-appearing calcifications. IMPRESSION: MM/[place] [id number] BI-RADS: 2-Benign FOLLOW UP: 1 Year Follow-up
== END 2023-04-02 09:00 | disposition home or self-care (01) ==
LOC: RAD 08:59
PROVIDERS: PCP Physician Assistant; Visit Provider Physician Assistant
DX: Z12.31 Encounter for screening mammogram for malignant neoplasm of breast (principal)
CPT/HCPCS: 77063; 77067

== ENCOUNTER → 2023-07-08 09:50 | Outpatient (BNVA) | payer BC, MEDICAID, SELFPAY | PROVIDERS: PCP Physician Assistant; Referring Provider Physician Assistant; Visit Provider Psychiatry & Neurology Neurology | DX: G43.409 Hemiplegic migraine, not intractable, without status migrainosus (principal) | CPT/HCPCS: 36415; 82565; 82607; 82652; 82746; 83735; 83921; 84520 ==

== ENCOUNTER 2023-07-18 13:39 | Outpatient (CLI) | payer BC, MEDICAID, SELFPAY ==
--- NOTE | 2023-07-18 13:45 | XR_ITS ---
WS: [id number] SCREENING DEXA SCAN [employer] CLINICAL INFORMATION: POSTMENOPAUSAL COMPARISON: None. FINDINGS: The L1-L4 bone mineral density measures 0.931 g/cm2. This corresponds to a T score score of -2.1 and Z score of -2.4. Left femoral neck bone mineral density measures 0.776 g/cm2. This corresponds to a T score of -1.8 an d Z score of -2.0. Right femoral neck bone mineral density measures 0.758 g/cm2. This corresponds to a T score -2.0of an d Z score of -2.1. Mean femoral neck bone mineral density measures 0.767 g/cm2. This corresponds to a T score of -1.9 an d Z score of -2.1. IMPRESSION: Osteopenia lumbar spine. Osteopenia femoral necks. Patient's FRAX calculated 10 year probability for major osteoporotic fracture is 7.6% and osteoporoti c hip fracture is 1.1%.
== END 2023-07-18 13:40 | disposition home or self-care (01) ==
LOC: RAD 13:40
PROVIDERS: PCP Physician Assistant; Visit Provider Physician Assistant
DX: Z78.0 Asymptomatic menopausal state (principal); M85.89 Other specified disorders of bone density and structure, multiple sites
CPT/HCPCS: 77080

== ENCOUNTER 2023-08-12 06:48 | Outpatient (CLI) | payer BC, MEDICAID, SELFPAY ==
--- NOTE | 2023-08-12 07:15 | MR_ITS ---
WS: [id number] MRI BRAIN WITH AND WITHOUT CONTRAST HISTORY: G43.409 - Hemiplegic migraine, not intractable, without s... COMPARISON: 12/23/2008 TECHNIQUE: Multiplanar imaging performed through the brain with MultiHance 20 ml's IV. No acute infarcts are seen. Dawkins-white matter differentiation is well preserved. Numerous T2 and FLAI R signal very small hyperintensities are identified throughout the white matter, LEFT greater than RI GHT. These have increased since 2008. No infarct. No lacunar infarct. Posterior fossa and tatyana are ne gative. No susceptibility artifacts or prior lacunar infarcts. Ventricles and extra-axial spaces are normal. Clivus and pituitary gland are normal. Visualized posterior fossa and brainstem are also normal. Postcontrast images are negative for masses or vascular malformations. Dural venous sinuses are normal. Paranasal sinuses: Small mucous retention cysts in the floor of the maxillary sinuses. No air-fluid l evels. Mastoid air cells: Normal. Calvarium and scalp: Normal. IMPRESSION: 1. No acute infarct and no mass. 2. Mild T2 and FLAIR signal hyperintensities throughout the white matter. These are essentially new since the study from 2008. These can be seen with migraines, small vessel ischemic disease, hypertens ion and smoking. 3. No prior infarct and no volume loss.
--- NOTE | 2023-08-12 07:45 | MR_ITS ---
WS: [id number] MRA ANGIOGRAPHY [place] HISTORY: G43.409 - Hemiplegic migraine, not intractable, without s... COMPARISON: MRI brain 12/23/2008 TECHNIQUE: 3-D MR angiography is performed of the [place]. All images are reviewed including source images. Dominant distal RIGHT vertebral artery. Both vertebral arteries are patent. Normal basilar artery. No aneurysm. Posterior cerebral arteries are normal caliber. No occlusion or irregularity. Small calibe r posterior communicating arteries. Intracranial portion of the internal carotid arteries are normal course and caliber. No significant a therosclerosis, stenosis or aneurysm identified. Middle and anterior cerebral arteries are both paten t with no significant disease. Anterior communicating artery is also normal. IMPRESSION: Normal MRA [place].
== END 2023-08-12 06:49 | disposition home or self-care (01) ==
PROVIDERS: PCP Physician Assistant; Visit Provider Psychiatry & Neurology Neurology
DX: G43.409 Hemiplegic migraine, not intractable, without status migrainosus (principal)
CPT/HCPCS: 70544; 70553; A9577

== ENCOUNTER 2023-08-14 15:10 | Outpatient (CLI) | payer BC, MEDICAID, SELFPAY ==
--- NOTE | 2023-08-14 16:00 | MR_ITS ---
WS: [id number] MRA CAROTID ARTERIES HISTORY: G43.409 - Hemiplegic migraine, not intractable, without s... COMPARISON: None available. TECHNIQUE: MRA is performed with intravenous gadolinium. MIP and source images are reviewed. Right: Normal caliber. No significant stenosis or plaque. No irregularity. Cervical carotid artery is negative. Left: Normal caliber. No significant stenosis or plaque. No wall irregularity. Normal bifurcation. Ce rvical carotid arteries negative. Subclavian Arteries: Small portion of the RIGHT subclavian artery is identified and normal. The LEFT subclavian is poorly visualized. Vertebral Arteries: Proximal vertebral arteries obscured by motion. There is no high-grade obstructio n. IMPRESSION: 1. No cervical carotid artery stenosis. No plaque or irregularity. 2. The proximal vertebral arteries and subclavian arteries are not well visualized but no high-grade stenosis or occlusion is identified.
== END 2023-08-14 15:11 | disposition home or self-care (01) ==
LOC: RAD 15:11
PROVIDERS: PCP Physician Assistant; Visit Provider Psychiatry & Neurology Neurology
DX: G43.409 Hemiplegic migraine, not intractable, without status migrainosus (principal)
CPT/HCPCS: 70548

== ENCOUNTER 2023-08-29 08:20 | Oncology outpatient (recurring) (ONCR) | payer BC, MEDICAID, SELFPAY ==
[2023-08-29 09:57] LABS: Basophils % 0.2 %; Eosinophils # 0.2 10^3/uL (0.0-0.8); Eosinophils % 2.3 %; Hematocrit 42.6 % (36-47); Lymphocytes # 1.8 10^3/uL (0.8-4.8); Lymphocytes % 21.1 %; Mean Corpuscular HGB Conc 32.2 g/dL (30-55); Mean Corpuscular Hemoglobin 28.7 pg (27-33); Mean Corpuscular Volume 89.1 fl (85-98); Mean Platelet Volume 9.7 fL (7.4-10.4); Monocytes # 0.5 10^3/uL (0.2-0.9); Monocytes % 5.7 %; Neutrophils # 6.03 10^3/uL (1.8-7.7); Nucleated Red Blood Cells % 0 %; Platelet Count 317 10^3/cmm (157-399); Red Blood Count 4.78 10^6/uL (3.85-5.65); Red Cell Distribution Width 13.3 % (12.1-15.1); White Blood Count 8.62 10^3/uL (3.29-11.43)
[2023-08-29 10:22] LABS: Alanine Aminotransferase 13 U/L (0-33); Albumin Level 4.2 g/dL (3.5-5.2); Alkaline Phosphatase 132 U/L (35-105); Aspartate Amino Transferase 13 U/L (0-32); Blood Urea Nitrogen 21 mg/dL (6-20); Calcium 8.6 mg/dL (8.5-10.5); Carbon Dioxide 26 mmol/L (22-29); Chloride 103 mmol/L (98-107); Creatinine Clr Calc Pharmacy 92.6548; Ferritin 51 ng/mL (15-150); Glucose 114 mg/dL (65-115); Homocysteine 13.09; Iron 53 ug/dL (37-145); Osmolality Calculated 292 mOsm/kg (285-295); Percent Saturation 16.2 % (20-50); Sodium 139 mmol/L (136-145); Total Bilirubin 0.3 mg/dL (0.15-1.2); Total Iron Binding Capacity 326 mcg/dl; Total Protein 7.2 g/dL (6.6-8.7); Unsaturated Iron Binding 273 ug/dL (112-347)
[2023-08-29 10:36] LABS: Vitamin B12 611 pg/mL (232-1245)
[2023-08-29 10:50] LABS: Folate Level > 20.0 ng/mL (4.8-37.3)
[2023-09-02 09:05] LABS: Methylmalonic Acid 230 nmol/L (87-318)
== END 2023-09-26 23:59 | disposition home or self-care (01) ==
PROVIDERS: PCP Physician Assistant; Visit Provider Internal Medicine Hematology & Oncology
DX: G43.411 Hemiplegic migraine, intractable, with status migrainosus (principal); F33.2 Major depressive disorder, recurrent severe without psychotic features; L60.3 Nail dystrophy; E87.1 Hypo-osmolality and hyponatremia
CPT/HCPCS: 36415; 80053; 82607; 82728; 82746; 83090; 83540; 83550; 83921; 85025

== ENCOUNTER 2023-09-11 09:17 | Outpatient (CLI) | payer BC, MEDICAID, SELFPAY | END 2023-09-11 09:18 | disposition home or self-care (01) | LOC: RAD 10-02 12:22 | PROVIDERS: PCP Physician Assistant; Visit Provider Specialist | DX: R13.10 Dysphagia, unspecified (principal) | CPT/HCPCS: 74220 ==

== ENCOUNTER 2023-10-28 09:21 | Outpatient (CLI) | payer BC, MEDICAID, SELFPAY ==
--- NOTE | 2023-10-28 09:24 | FL_ITS ---
WS: [id number] FL barium swallow modifd [id number] REASON FOR EXAM: Other dysphagia FLUOROSCOPY TIME: 1min [id number] # OF SPOT FILMS: None FINDINGS: The examination was supervised by the speech therapy department. With the patient in the sitting upright position, and in the lateral projection, the swallowing of mu ltiple consistencies of barium was monitored fluoroscopically and video recorded. A detailed report of the swallowing will be rendered by the speech therapy department. FL/FL barium swallow modifd [id number] IMPRESSION: Modified barium swallow as above.
--- NOTE | 2023-10-28 09:24 | CTR_ITS ---
PROCEDURE INFORMATION: Exam: CT Neck With Contrast Exam date and time: 10/28/2023 9:49 AM Age: 58 years old Clinical indication: Dysphagia / difficulty swallowing TECHNIQUE: Imaging protocol: Computed tomography of the neck with contrast. Radiation optimization: All CT scans at this facility use at least one of these dose optimization techniques: automated exposure control; mA and/or kV adjustment per patient size (includes targeted exams where dose is matched to clinical indication); or iterative reconstruction. Contrast material: OMNI 350; Contrast volume: 100 ml; Contrast route: INTRAVENOUS (IV); COMPARISON: MR angio neck w con* [id number] 08/14/2023 3:58 PM RADIATION DOSE METRICS: Total DLP (mGy-cm): 284.5 FINDINGS: Paranasal sinuses: Bilateral maxillary sinus retention cysts, largest on the left at 1.7 cm Mastoid air cells: The mastoid sinuses are clear. Salivary glands: Normal. Glands are normal in size. Pharynx: Unremarkable. No significant tonsillar enlargement. Prevertebral and retropharyngeal spaces: Unremarkable. Larynx: Unremarkable. Epiglottis is normal. Thyroid: 2.7 cm x 2.3 cm x 2.4 cm left thyroid lobe mass. Right thyroid lobe is normal. Trachea: Slight rightward displacement of the trachea by the left thyroid lobe mass. Lungs: No acute findings in the lung apices. Lymph nodes: Prominent left neck level 2 lymph nodes, measuring up to 8 mm. Possibly reactive. No other concerning neck adenopathy. Vasculature: The vasculature is normal. Bones/joints: Multilevel degenerative changes of the vertebra are present, as manifested by multilevel anterior osteophytes, endplate sclerosis, and multilevel posterior disc osteophyte complexes. No acute skeletal abnormality or aggressive osseous lesion. Soft tissues: Unremarkable. No significant soft tissue swelling. CT/CT neck w con* [id number] IMPRESSION: 1. 2.7 cm x 2.3 cm x 2.4 cm left thyroid lobe mass. Further evaluation with non-emergent thyroid ultrasound is recommended. 2. No other discrete findings to explain the patient's dysphagia. 3. Prominent left neck level 2 lymph nodes, measuring up to 8 mm. Possibly reactive. COMMENTS: Consistent with the [employer]'s Incidental Findings Committee white paper (J Am Sb Radiol 2015): In patients aged 35 years and older with an incidental thyroid nodule equal to or greater than 1.[address], MRI or extrathyroidal US, further evaluation with dedicated thyroid US is recommended for patients with normal life expectancy and without comorbidities. For smaller nodules without suspicious features, no further evaluation or follow up is recommended.
[2023-10-28] MEDS: iohexol 350 mg/mL 500 mL Btl (per mL) IV (10:00)
== END 2023-10-28 09:22 | disposition home or self-care (01) ==
LOC: RAD 09:22
PROVIDERS: PCP Physician Assistant; Visit Provider Specialist
DX: R13.19 Other dysphagia (principal); E04.1 Nontoxic single thyroid nodule; R59.0 Localized enlarged lymph nodes; J34.1 Cyst and mucocele of nose and nasal sinus; M47.892 Other spondylosis, cervical region
CPT/HCPCS: 70491; 74230; 92611; Q9967

== ENCOUNTER 2023-12-22 12:26 | Oncology outpatient (recurring) (ONCR) | payer BC, MEDICAID, SELFPAY ==
[2023-12-22 12:53] LABS: Basophils # 0.1 10^3/uL (0.0-0.1); Basophils % 0.6 %; Eosinophils # 0.1 10^3/uL (0.0-0.8); Eosinophils % 1.7 %; Hematocrit 44.8 % (36-47); Lymphocytes # 1.9 10^3/uL (0.8-4.8); Lymphocytes % 24.6 %; Mean Corpuscular HGB Conc 32.8 g/dL (30-55); Mean Corpuscular Hemoglobin 29.6 pg (27-33); Mean Corpuscular Volume 90.3 fl (85-98); Mean Platelet Volume 9.8 fL (7.4-10.4); Monocytes # 0.4 10^3/uL (0.2-0.9); Monocytes % 5.4 %; Neutrophils # 5.26 10^3/uL (1.8-7.7); Neutrophils % 67.2 %; Nucleated Red Blood Cells % 0 %; Platelet Count 318 10^3/cmm (157-399); Red Blood Count 4.96 10^6/uL (3.85-5.65); Red Cell Distribution Width 13.2 % (12.1-15.1); White Blood Count 7.83 10^3/uL (3.29-11.43)
[2023-12-22 13:10] LABS: Alanine Aminotransferase 18 U/L (0-33); Albumin Level 4.5 g/dL (3.5-5.2); Alkaline Phosphatase 148 U/L (35-105); Anion Gap 18.5 (5-19); Aspartate Amino Transferase 15 U/L (0-32); Blood Urea Nitrogen 22 mg/dL (6-20); Calcium 9.3 mg/dL (8.5-10.5); Carbon Dioxide 24 mmol/L (22-29); Chloride 100 mmol/L (98-107); Globulin 2.9 g/dL (1.3-4.6); Glomerular Filtration Rate 57.4 mL/min (90-130); Glucose 110 mg/dL (65-115); Osmolality Calculated 290 mOsm/kg (285-295); Potassium 4.5 mmol/L (3.5-5.1); Sodium 138 mmol/L (136-145); Total Bilirubin 0.4 mg/dL (0.15-1.2); Total Protein 7.4 g/dL (6.6-8.7)
[2023-12-22 13:35] LABS: Folate Level 10.7 ng/mL (4.8-37.3)
[2023-12-22 16:09] LABS: Homocysteine 17.79 umol/l (0-15)
[2023-12-25 17:28] LABS: Methylmalonic Acid 254 nmol/L (55-335)
== END 2023-12-27 23:55 | disposition home or self-care (01) ==
PROVIDERS: Nurse Practitioner Family; PCP Physician Assistant; Visit Provider Internal Medicine Hematology & Oncology
DX: R79.89 Other specified abnormal findings of blood chemistry (principal); G43.411 Hemiplegic migraine, intractable, with status migrainosus; F33.2 Major depressive disorder, recurrent severe without psychotic features; L60.3 Nail dystrophy; E87.1 Hypo-osmolality and hyponatremia; Z86.39 Personal history of other endocrine, nutritional and metabolic disease
CPT/HCPCS: 36415; 80053; 82746; 83090; 83921; 85025

== ENCOUNTER 2024-06-21 09:26 | Oncology outpatient (recurring) (ONCR) | payer BC, MEDICAID, SELFPAY ==
--- NOTE | 2024-06-21 13:00 | PC.NURSE ---
Patient arrived for her scheduled Vyepti infusion. 11:30 vital signs were 174/114 178/118, heart rate 72 O2 Sat 95 on room air. Patient states she has an active migraine, rating her pain at an 8 out of 10. Patient also relates that she is seeing black spots. Dr Márquez was notified of patient's vitals and migraine status. Per Dr Márquez, the patient is to be seen in the ER for evaluation. Information was relayed to the patient, she agreed to be seen. Patient was loaded in a wheel chair for transport to ER. Patient was conversing with this nurse during transport, this nurse noted patients speech was becoming slow and slurred. Patient asked this nurse to contact her right before she slumped forward in the wheel chair where she was noted to be unresponsive. Rapid response was called by this nurse near the information desk/ICU entrance. Response team arrived, transporting the patient to ER. Dr Márquez was notified of his patient's status by this nurse.
[2024-06-21] MEDS: eptinezumab-jjmr 100 MG in sodium chloride 0.9% (100 ml) 100 ML 202 MG IV (15:23)
[2024-06-21 15:55] VITALS: BP 147/102; PULSE 70; RESP 16; TEMP 36.8; O2SAT 97
[2024-06-21 16:28] VITALS: BP 169/119
== END 2024-06-25 23:59 | disposition home or self-care (01) ==
PROVIDERS: PCP Physician Assistant; Visit Provider Psychiatry & Neurology Neurology
DX: G43.411 Hemiplegic migraine, intractable, with status migrainosus (principal); Z79.899 Other long term (current) drug therapy
CPT/HCPCS: 96365; A4222; J3032

== ENCOUNTER 2024-06-21 11:49 | Emergency (ER) | payer BC, MEDICAID, SELFPAY ==
[2024-06-21 11:52] VITALS: BP 221/169; PULSE 112; RESP 20; O2SAT 98
--- NOTE | 2024-06-21 11:52 | CT_ITS ---
WS: [id number] CT HEAD NONCONTRAST HISTORY: Symptoms of acute stroke TECHNIQUE: Contiguous axial imaging performed through the brain. Bone and soft tissue windows. Sagittal and coronal reformats reviewed. All CT scans at [facility] use at least one of these dose optimization techniques: automated exposure control; mA and/or kV adjustment per patient size (includes targeted exams where dose is matched to clinical indication); or iterative reconstruction. DLP: 1160.98 mGy COMPARISON: 05/26/2017 No acute intracranial hemorrhage, midline shift or mass effect. No atrophy or prior infarcts or herniation. There is a small amount of artifact through the brainstem. No obvious edema or acute infarct. Ventricles: Normal size with no hydrocephalus. No inferior displacement of the cerebellar tonsils. Paranasal sinuses: Moderate mucous retention cyst LEFT maxillary sinus. No air- fluid levels. Mastoid air cells: Well pneumatized. Calvarium and scalp: Skull is intact with no soft tissue edema or swelling. CT/CT head thrombolytic [id number] IMPRESSION: 1. No acute intracranial hemorrhage or edema. 2. No sulcal effacement or edema. Notified Jony Shepherd MD at 06/21/2024 12:04 PM.
--- NOTE | 2024-06-21 11:52 | ECG_ITS ---
[facility] Test Date: 2024-06-21 Pat Name: Nellie Salas Department: Room: Gender: Female Rn Ed: : 1965 Requested By: Jony Shepherd Order Number: [id number] Reading MD: KEENAN MACIAS Measurements Intervals [place] Rate: 70 P: 3 AL: 183 QRS: 35 QRSD: 106 T: 62 QT: 381 QTc: 412 Interpretive Statements SINUS RHYTHM LOW QRS VOLTAGE IN PRECORDIAL LEADS [QRS DEFLECTION < 1.0 mV IN CHEST LEADS] INCOMPLETE RIGHT BUNDLE BRANCH BLOCK [90+ ms QRS DURATION, TERMINAL R IN V1/V2, 40+ ms S IN I/aVL/V4/V5/V6] POSSIBLE ANTERIOR MYOCARDIAL INFARCTION , OF INDETERMINATE AGE [30 ms Q WAVE IN V3/V4, OR R < 0.2 mV IN V4] INFERIOR MYOCARDIAL INFARCTION , OF INDETERMINATE AGE [40+ ms Q WAVE AND/OR ST/T ABNORMALITY IN II/aVF] Compared to ECG 05/26/2017 23:42:55 Myocardial infarct finding now present Sinus bradycardia no longer present Electronically Signed On 06-22-2024 23:36:07 [employer] REPRESENTATIVE by KEENAN MACIAS [id number] [id number]
[2024-06-21 11:55] LABS: Glucose Point of Care 112 mg/dL (70-110)
--- NOTE | 2024-06-21 12:14 | W.ED.NEUROSD ---
HPI - Neuro Symptoms/Deficit General: Chief Complaint: Neuro Symptoms/Deficit Stated Complaint: RAPID Time Seen by Provider: 06/21/24 11:51 Source: patient Mode of arrival: ambulatory Limitations: no limitations History of Present Illness: 58-year-old female who has a history of hemiplegic migraines she was coming up here for infusion for migraines rapid response was called while she was registering she started having slurred speech altered mental status and a stroke alert was called. Patient is feeling improved she does have high blood pressure here she states she does have a migraine currently she denies any vomiting or diarrhea Associated symptoms: Reports headache(s); Deny chest pain, nausea or vomiting Related Data Home Medications ?Medication ?Instructions ?Recorded ?Confirmed clopidogrel 75 mg tablet 75 mg PO DAILY 06/01/19 06/21/24 diphenhydramine HCl 25 mg capsule 25 mg PO QID PRN Allergy Symptoms 08/13/19 06/21/24 (Benadryl) cetirizine 10 mg tablet 10 mg PO DAILY 01/10/22 06/21/24 gwslhkae-eii-jdwmo ac 400 1 tab PO DAILY 01/10/22 06/21/24 mcg-calcium carb 500 mg-vit K1 20 mcg tablet (Women's 50 Plus Multivitamin) albuterol sulfate 90 mcg/actuation 2 puff inhalation Q4H PRN 06/21/24 06/21/24 aerosol inhaler Shortness Of Breath galcanezumab-gnlm 120 mg/mL 120 mg SUBCUT .Q30D 06/21/24 06/21/24 subcutaneous pen injector (Emgality Pen) semaglutide 0.25 mg or 0.5 mg (2 2 mg SUBCUT Q7D 06/21/24 06/21/24 mg/3 mL) subcutaneous pen injector (Ozempic) sertraline 100 mg tablet 150 mg PO DAILY 06/21/24 06/21/24 Previous Rx's ?Medication ?Instructions ?Recorded eptinezumab-jjmr 100 mg/mL 100 mg IV Q90D #1 mL 06/10/24 intravenous solution (Vyepti) Allergies Allergy/AdvReac Type Severity Reaction Status Date / Time cinnamon Allergy Severe ALGY-Swell Verified 03/08/24 15:13 Lip/Tongue/Throat kiwi Allergy Severe ALGY-Bliste Verified 03/08/24 15:13 r tomato Allergy Severe ALGY-Hives Verified 03/08/24 15:13 aspirin Allergy Intermediate ALGY-Rash Verified 03/08/24 15:13 penicillin G Allergy Intermediate algy-rash Verified 03/08/24 15:13 Review of Systems Const: Denies: fever(s), chills, body aches or change in appetite Eyes: Denies: blurry vision or eye discomfort ENMT: Denies: throat pain or dental pain Card: Denies: chest pain Resp: Denies: dyspnea GI: Denies: abdominal pain, nausea, vomiting or diarrhea Musc: Denies: neck pain or back pain Skin/Breast: Denies: rash Neuro: Reports: headache(s) and Slurred speech present PFSH ED PFSH: Medical History Hemiplegic migraine Hypercholesteremia Type 2 diabetes mellitus with diabetic polyneuropathy Surgical History History of arthroplasty of right knee History of knee surgery multiple right knee Hx of cholecystectomy History of kidney surgery H/O hysterectomy with oophorectomy H/O section Family History Mother , at age 58 Cancer Lung, brain, bone Father , at age 79 Heart attack Other Diabetes Heart disease Thyroid disease Denies family history of CAD (coronary artery disease) Clotting disorder Dementia Hyperlipidemia Psychiatric illness Chronic kidney disease (CKD) Suicide Anesthesia complication Bleeding disorder Family history of premature coronary artery disease Lung disease Hypertension Stroke Social History Smoking and tobacco/nicotine status: never used tobacco/nicotine Second hand smoke exposure: No Alcohol intake: never Substance/Drug Use: never Household members: spouse Marital status: Current occupational status: disabled Current gender identity: Female NIH stroke score NIHSS: Level Of Consciousness - 1a: 0 Level Of Consciousness Questions - 1b: Both Correct Level Of Consciousness Commands - 1c: Both Correct Best Gaze - 2: Normal Visual Gutierrez - 3: No Visual Loss Facial Palsy - 4: Normal Motor Arm Right - 5: Drift Motor Arm Left - 5: Drift Motor Leg Right - 6: Drift Motor Leg Left - 6: Drift Limb Ataxia - 7: Absent Sensory - 8: Normal Best Language - 9: No Aphasia Dysarthia - 10: Mild/Moderate Dysarthia Extinction And Inattention - 11: 0 Score: Total Score: 5 Physical Exam Const: COMMON NORMALS: patient oriented x3 HENMT: COMMON NORMALS: normocephalic and atraumatic HEAD & SCALP: normocephalic and atraumatic Eye: COMMON NORMALS: Equal, round and reactive pupils present and EOMs intact bilaterally PUPIL: Yes Equal, round and reactive pupils present Neck/C-Spine: COMMON NORMALS: full ROM and supple Chest: COMMONS NORMALS: normal inspection of the chest and normal palpation of entire chest wall Resp: COMMON NORMALS: normal respiratory effort, No retractions, No use of accessory muscles and clear to auscultation bilaterally AUSCULTATION: clear to auscultation bilaterally Cardio: COMMON NORMALS: regular rate, regular rhythm and No murmurs present (Cardio) RATE: regular rate RHYTHM: regular rhythm GI: COMMON NORMALS: Normal to inspection, nondistended, normoactive bowel sounds present, Soft to palpation, non-tender and no masses PALPATION: Yes Soft to palpation Extremity: COMMON NORMALS: normal to inspection and full ROM Neuro: COMMON NORMALS: patient oriented x3, moves all extremities and no focal motor deficits Psych: COMMON NORMALS: mental status grossly normal, Normal thought process present and cooperative THOUGHT PROCESS: Normal thought process present Skin: COMMON NORMALS: no rashes or lesions noted and no wounds GENERAL SKIN EXAM: no rashes or lesions noted Course Vital Signs: Vital signs: Vital Signs Pulse Rate 79 06/21/24 14:43 Respiratory Rate 18 06/21/24 14:43 Blood Pressure 156/95 06/21/24 14:43 Pulse Oximetry 94 06/21/24 14:43 Oxygen Delivery Me thod Room Air 06/21/24 14:42 MDM - Neuro Symptoms/Deficit Medical Decision Making Patient was presented here after having a migraine and then slurred speech she has had hemiplegic migraines in the past she was seen by neurologist Dr. Ortega who by me and patient determined this is likely a migraine no signs of stroke or symptoms here improved as her headache is improved she stable for discharge we will discharge her back to the infusion center so she can receive her infusion for her migraines she is to return if worsening she understands agrees to plan. Medical Records I reviewed the patient's medical records. Lab Data I reviewed the patient's lab results. 06/21/24 12:05 06/21/24 12:[address] 06/21/24 11:52 IMPRESSION: 1. No acute intracranial hemorrhage or edema. 2. No sulcal effacement or edema. Notified Jony Shepherd MD at 06/21/2024 12:04 PM. Laboratory Results WBC 7.95 10^3/uL (3.29-11.43) 06/21/24 12:05 RBC 5.07 10^6/uL (3.85-5.65) 06/21/24 12:05 Hgb 14.70 g/dL (11.27-16.99) 06/21/24 12:05 Hct 46.1 % (36-47) 06/21/24 12:05 MCV 90.9 fl (85-98) 06/21/24 12:05 MCH 29.0 pg (27-33) 06/21/24 12:05 MCHC 31.9 g/dL (30-55) 06/21/24 12:05 RDW 13.5 % (12.1-15.1) 06/21/24 12:05 Plt Count 345 10^3/cmm (157-399) 06/21/24 12:05 MPV 9.6 fL (7.4-10.4) 06/21/24 12:05 Neut % (Auto) 61.6 % 06/21/24 12:05 Lymph % (Auto) 28.2 % 06/21/24 12:05 [place] % (Auto) 7.0 % 06/21/24 12:05 Eos % (Auto) 1.9 % 06/21/24 12:05 Baso % (Auto) 0.9 % 06/21/24 12:05 Neut # (Auto) 4.90 10^3/uL (1.8-7.7) 06/21/24 12:05 Lymph # (Auto) 2.2 10^3/uL (0.8-4.8) 06/21/24 12:05 [place] # (Auto) 0.6 10^3/uL (0.2-0.9) 06/21/24 12:05 Eos # (Auto) 0.2 10^3/uL (0.0-0.8) 06/21/24 12:05 Baso # (Auto) 0.1 10^3/uL (0.0-0.1) 06/21/24 12:05 Nucleated RBC % (auto) 0 % 06/21/24 12:05 Nucleated RBCs # 0.0 /100WBC 06/21/24 12:05 PT 11.90 SECONDS (12.1-14.9) L 06/21/24 12:05 INR 0.82 (0.8-1.2) 06/21/24 12:05 APTT 27.4 SECONDS (23.9-36.7) 06/21/24 12:05 Sodium 137 mmol/L (136-145) 06/21/24 12:05 Potassium 4.9 mmol/L (3.5-5.1) 06/21/24 12:05 Chloride 101 mmol/L (98-107) 06/21/24 12:05 Carbon Dioxide 25 mmol/L (22-29) 06/21/24 12:05 Anion Gap 15.9 (5-19) 06/21/24 12:05 BUN 17 mg/dL (6-20) 06/21/24 12:05 Creatinine 0.9 mg/dL (0.5-0.9) 06/21/24 12:05 GFR Calculation 64.8 mL/min (90-130) L 06/21/24 12:05 Glucose 114 mg/dL (65-115) 06/21/24 12:05 POC Glucose 112 mg/dL (70-110) H 06/21/24 11:52 Calculated Osmolality 286 mOsm/kg (285-295) 06/21/24 12:05 Calcium 9.8 mg/dL (8.5-10.5) 06/21/24 12:05 Total Bilirubin 0.4 mg/dL (0.15-1.2) 06/21/24 12:05 AST 36 U/L (0-32) H 06/21/24 12:05 ALT 28 U/L (0-33) 06/21/24 12:05 Alkaline Phosphatase 120 U/L (35-105) H 06/21/24 12:05 Troponin T Baseline < 6 ng/L (0-10) 06/21/24 12:05 Total Protein 7.3 g/dL (6.6-8.7) 06/21/24 12:05 Albumin 4.1 g/dL (3.5-5.2) 06/21/24 12:05 Globulin 3.2 g/dL (1.3-4.6) 06/21/24 12:05 Urine Color Yellow (Yellow) 06/21/24 13:39 Urine Appearance Clear (CLEAR) 06/21/24 13:39 Urine pH 5.0 (5-7) 06/21/24 13:39 Ur Specific [place] 1.016 (1.005-1.030) 06/21/24 13:39 Urine Protein Negative (Negative) 06/21/24 13:39 Urine Glucose (UA) Negative (Normal) 06/21/24 13:39 Urine Ketones Negative (Negative) 06/21/24 13:39 Urine Blood Negative (Negative) 06/21/24 13:39 Urine Nitrate Negative (Negative) 06/21/24 13:39 Urine Bilirubin Negative (Negative) 06/21/24 13:39 Urine Urobilinogen 0.2 mg/dL (Negative) 06/21/24 13:39 Ur Leukocyte Esterase Negative (Negative) 06/21/24 13:39 Amorphous Sediment Not Reportable 06/21/24 13:39 Urine Opiates Screen Negative ng/mL (Negative) 06/21/24 13:39 Ur Barbiturates Screen Negative ng/mL (Negative) 06/21/24 13:39 Ur Phencyclidine Scrn Negative ng/mL (Negative) 06/21/24 13:39 Ur Amphetamines Screen Negative ng/mL (Negative) 06/21/24 13:39 U Benzodiazepines Scrn Negative ng/mL (Negative) 06/21/24 13:39 Urine Cocaine Screen Negative ng/mL (Negative) 06/21/24 13:39 U Marijuana (THC) Screen Negative ng/mL (Negative) 06/21/24 13:39 All radiology interpretation(s) finalized by discharge Discharge Plan Discharge Patient Disposition: Home Clinical Impression: Headache Condition: Stable Prescriptions: No Action clopidogrel 75 mg tablet 75 mg PO DAILY diphenhydramine HCl [Benadryl] 25 mg capsule 25 mg PO QID PRN (Reason: Allergy Symptoms) Vyepti 100 mg/mL solution 100 mg IV Q90D Qty: 1 3RF Women's 50 Plus Multivitamin 400 mcg-500 mg calcium-20 mcg Tablet 1 tab PO DAILY cetirizine 10 mg tablet 10 mg PO DAILY sertraline 100 mg tablet 150 mg PO DAILY albuterol sulfate 90 mcg/actuation HFA aerosol inhaler 2 puff INHALATION Q4H PRN (Reason: Shortness Of Breath) Ozempic 0.25 mg or 0.5 mg (2 mg/3 mL) pen injector 2 mg SUBCUT Q7D Rx Instructions: Mondays Emgality Pen 120 mg/mL pen injector 120 mg SUBCUT .Q30D Discharge Orders: Discharge ED (Routine); Ordered 06/21/24 Ordered By: Jony Shepherd Referrals: Dilcia Kevin PA [Primary Care Provider] - Discharge Diet: Advance as tolerated Discharge Activity: Resume usual activity Patient Instructions: Headache - Migraine (Adult) Print Language: Portuguese Coding Level of Care Code ED Director Experimental Medicine for Jordon Caruso
[2024-06-21] MEDS: ketorolac 30 mg/mL INJ 15 MG IVP (12:16)
[2024-06-21 12:34] LABS: Basophils # 0.1 10^3/uL (0.0-0.1); Basophils % 0.9 %; Eosinophils # 0.2 10^3/uL (0.0-0.8); Eosinophils % 1.9 %; Hematocrit 46.1 % (36-47); INR 0.82 (0.8-1.2); Lymphocytes # 2.2 10^3/uL (0.8-4.8); Lymphocytes % 28.2 %; Mean Corpuscular HGB Conc 31.9 g/dL (30-55); Mean Corpuscular Volume 90.9 fl (85-98); Mean Platelet Volume 9.6 fL (7.4-10.4); Monocytes # 0.6 10^3/uL (0.2-0.9); Neutrophils % 61.6 %; Nucleated Red Blood Cells % 0 %; Partial Thromboplastin Time 27.4 SECONDS (23.9-36.7); Platelet Count 345 10^3/cmm (157-399); Red Blood Count 5.07 10^6/uL (3.85-5.65); Red Cell Distribution Width 13.5 % (12.1-15.1); White Blood Count 7.95 10^3/uL (3.29-11.43)
[2024-06-21] MEDS: valproic acid inj 500 MG in sodium chloride 0.9% 50 ML 55 MG IV (12:37)
--- NOTE | 2024-06-21 12:39 | PC.PHAR ---
Pt scheduled for Vyepti 100mg Im infusion today. Never got pt started. Emgality 120mg/ml due on is on HOLD due to todays infusion.
[2024-06-21 12:43] LABS: Alanine Aminotransferase 28 U/L (0-33); Albumin Level 4.1 g/dL (3.5-5.2); Alkaline Phosphatase 120 U/L (35-105); Anion Gap 15.9 (5-19); Aspartate Amino Transferase 36 U/L (0-32); Blood Urea Nitrogen 17 mg/dL (6-20); Calcium 9.8 mg/dL (8.5-10.5); Carbon Dioxide 25 mmol/L (22-29); Chloride 101 mmol/L (98-107); Globulin 3.2 g/dL (1.3-4.6); Glomerular Filtration Rate 64.8 mL/min (90-130); Glucose 114 mg/dL (65-115); Osmolality Calculated 286 mOsm/kg (285-295); Potassium 4.9 mmol/L (3.5-5.1); Sodium 137 mmol/L (136-145); Total Bilirubin 0.4 mg/dL (0.15-1.2); Total Protein 7.3 g/dL (6.6-8.7)
--- NOTE | 2024-06-21 12:50 | ECG_ITS ---
[facility] Test Date: 2024-06-21 Pat Name: Nellie Salas Department: Room: Gender: Female Sock Turner: : 1965 Requested By: Jony Shepherd Order Number: [id number] Reading MD: KEENAN MACIAS Measurements Intervals [place] Rate: 64 P: 12 ME: 175 QRS: -11 QRSD: 112 T: 88 QT: 406 QTc: 421 Interpretive Statements SINUS RHYTHM LOW QRS VOLTAGE IN PRECORDIAL LEADS [QRS DEFLECTION < 1.0 mV IN CHEST LEADS] INCOMPLETE RIGHT BUNDLE BRANCH BLOCK [90+ ms QRS DURATION, TERMINAL R IN V1/V2, 40+ ms S IN I/aVL/V4/V5/V6] POSSIBLE ANTERIOR MYOCARDIAL INFARCTION , OF INDETERMINATE AGE [30 ms Q WAVE IN V3/V4, OR R < 0.2 mV IN V4] Compared to ECG 06/21/2024 12:08:12 No significant changes Electronically Signed On 06-22-2024 23:48:05 RNFA by KEENAN MACIAS [email or web address] [id number]
[2024-06-21 13:39] LABS: Troponin(5th) Baseline < 6 ng/L (0-10)
[2024-06-21 13:44] LABS: Add Urine Microscopic? NO
--- NOTE | 2024-06-21 13:46 | PM.SAN ---
Stroke Alert Activation ED Arrival Date: 06/21/24 ED Arrival Time: 11:51 ED Physican at Bedside: 11:54 Last Known Normal/at Baseline: < 1 hour ago Other Last Known Well Infomation: Stroke team was activated at [address] Shepherd asked that I come straight to the emergency department for this 58-year-old woman who had witnessed sudden onset of right hemiplegia. She was in the waiting room to have Vyepti infusion when she went down. She had complete right hemiplegia. She had no loss of speech. She was was taken straight to CAT scan and I arrived immediately as she was wheeled back into the emergency department. The patient says she has done this more times than she can count. 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 She has been doing this for many years. She says this time is no different than usual. She currently has a severe headache. Please refer to Dr. Márquez's notes on the patient from previous visits 07/08/2023 and 09/11/2023 and 03/08/2024 when he described that the patient has headaches associated with strokelike symptoms. Hemiplegic migraine is a rare entity that causes hemiplegia associated with headaches and is inherited as autosomal dominant. She does not know anything about her father side of the family. Dr. Márquez has written extensive notes about this as well as her severe hypertension which is active today as well. She says her headache is severe. Stroke Alert Activated by: Triage Stroke Alert Activation Time: :51 Stroke MD @ Bedside Time: 11:54 NIH Stroke Scale Time: 11:55 NIH stroke score NIHSS: Level Of Consciousness - 1a: 0 Level Of Consciousness Questions - 1b: Both Correct Level Of Consciousness Commands - 1c: Both Correct Best Gaze - 2: Normal Visual Gutierrez - 3: No Visual Loss Facial Palsy - 4: Normal Motor Arm Right - 5: Effort Against [place] Motor Arm Left - 5: No Drift Motor Leg Right - 6: Effort Against [place] Motor Leg Left - 6: No Drift Limb Ataxia - 7: Absent Sensory - 8: Mild To Moderate Loss Best Language - 9: No Aphasia Dysarthia - 10: Normal Extinction And Inattention - 11: 0 Score: Total Score: 5 Stroke Alert Data/Treatment Time to CT of Head: 11:51 CT Results Time: 12:04 CT Impression: Normal Stroke Risk Factors: hypertension, obesity and depression tPA Contraindication: tPA Contraindication: Treatment not indcated Patient & Family Educated on: Treament Plan and Prognosis Other Information: I ordered Depacon 500 mg IV to attempt to abort the patient's headache. Plan vyepti today. discussed with Dr. Shepherd and turned over to him. No indication for thrombolytic. Critical Care Time Critical Care Time: 30 - 74 mins Additional information about critical care time: 40 minutes A&P Assessment and plan (1) Intractable hemiplegic migraine with status migrainosus: Apparently Dr. Márquez asked the patient to go to the ER because her blood pressure was elevated. I found that out from Dr. Márquez later. The patient has status migrainosus with severe headache and I believe that is probably the reason for her blood pressure elevation. She is experiencing right hemiparesis which caused her to be brought in by rapid response from the waiting room and she says this has happened more times than she can count . There is hope that her headaches will respond to Vyepti and if not she will be shifted to Botox protocol. If she gets any relief from Depacon she can receive a second dose. I will be glad to be informed further about the patient's progress. (2) Chronic migraine without aura, intractable, with status migrainosus: (3) Post-traumatic stress disorder, chronic: (4) Major depressive disorder, recurrent severe without psychotic features: (5) Generalized anxiety disorder: (6) Diabetes: (7) Hypertension: Accelerated hypertension probably secondary to migraine. PDMP PDMP Reviewed: Not Reviewed Coding Level of Care Code Acute Code for g Fwd Diagnoses Intractable hemiplegic migraine with status migrainosus G43.411 Chronic migraine without aura, intractable, with status migrainosus G43.711 Post-traumatic stress disorder, chronic F43.12 Major depressive disorder, recurrent severe without psychotic features F33.2 Generalized anxiety disorder F41.1 Diabetes E11.9 Hypertension I10
[2024-06-21 13:57] LABS: Bilirubin Urine Negative (Negative); Blood Urine Negative (Negative); Glucose Urine UA Negative (Normal); Ketones Urine Negative (Negative); Leukocyte Esterase Urine Negative (Negative); Nitrate Urine Negative (Negative); Protein Urine Negative (Negative); Specific Gravity, Urine 1.016 (1.005-1.030); Urine Appearance Clear (CLEAR); Urine Color Yellow (Yellow); Urobilinogen Urine 0.2 mg/dL (Negative)
[2024-06-21 14:04] LABS: Add Urine Culture? No
[2024-06-21 14:05] LABS: Charge for UA Resulting for Rev
[2024-06-21 14:31] LABS: Amphetamines Screen Urine Negative (Negative); Barbiturates Screen Urine Negative (Negative); Benzodiazepines Screen Urine Negative (Negative); Cocaine Screen Urine Negative (Negative); Opiate Screen Urine Negative (Negative); PCP Screen Urine Negative (Negative); THC Screen Urine Negative (Negative)
[2024-06-21 14:42] VITALS: BP 156/95; PULSE 79; RESP 18; O2SAT 94
[2024-06-21 14:43] VITALS: BP 156/95; PULSE 79; RESP 18; O2SAT 94
== END 2024-06-21 14:45 | disposition home or self-care (01) ==
PROVIDERS: Emergency Provider Emergency Medicine; PCP Physician Assistant
DX: R51.9 Headache, unspecified (principal); Z79.02 Long term (current) use of antithrombotics/antiplatelets; E11.42 Type 2 diabetes mellitus with diabetic polyneuropathy
CPT/HCPCS: 36416; 70450; 80053; 80306; 81003; 82962; 84484; 85025; 85610; 85730; 93005; 96374; 96375; 99285; J1885; J3490

== ENCOUNTER 2024-09-23 08:57 | Oncology outpatient (recurring) (ONCR) | payer BC, OTHER, MEDICAID, SELFPAY ==
[2024-09-23] MEDS: eptinezumab-jjmr 100 MG in sodium chloride 0.9% (100 ml) 100 ML 202 MG IV (11:18)
== END 2024-09-25 23:59 | disposition home or self-care (01) ==
PROVIDERS: PCP Physician Assistant; Visit Provider Psychiatry & Neurology Neurology
DX: G43.411 Hemiplegic migraine, intractable, with status migrainosus (principal); Z79.899 Other long term (current) drug therapy
CPT/HCPCS: 96365; A4222; J3032

== ENCOUNTER 2024-12-20 14:07 | Oncology outpatient (recurring) (ONCR) | payer OTHER, MEDICAID, SELFPAY ==
[2024-12-20 14:45] VITALS: BP 176/92; PULSE 61; RESP 17; TEMP 36.6; O2SAT 98
[2024-12-20] MEDS: eptinezumab-jjmr 100 MG in sodium chloride 0.9% (100 ml) 100 ML 202 MG IV (14:58)
[2024-12-20 15:32] VITALS: BP 159/93; PULSE 65; RESP 17; TEMP 36.7; O2SAT 98
== END 2024-12-26 23:59 | disposition home or self-care (01) ==
PROVIDERS: PCP Physician Assistant; Visit Provider Psychiatry & Neurology Neurology
DX: G43.411 Hemiplegic migraine, intractable, with status migrainosus (principal); Z79.899 Other long term (current) drug therapy
CPT/HCPCS: 96365; A4222; J3032

== ENCOUNTER 2025-02-02 05:30 | Emergency (ER) | payer OTHER, MEDICARE, MEDICAID, SELFPAY ==
--- NOTE | 2025-02-02 05:38 | W.ED.HA ---
HPI - Headache General: Chief Complaint: Headache Stated Complaint: Migraine Headache Time Seen by Provider: 02/02/25 05:34 Source: patient Mode of arrival: ambulatory Limitations: no limitations History of Present Illness: 59-year-old female with a history of migraines. States she has had a migraine since yesterday's gradually worsened states her headaches a 9 out of 10 feels like her typical migraine she does have photophobia phonophobia has had some nausea denies any fever denies any neck pain. Related Data Home Medications ?Medication ?Instructions ?Recorded ?Confirmed diphenhydramine HCl 25 mg capsule 25 mg PO QID PRN Allergy Symptoms 08/13/19 10/11/24 (Benadryl) cetirizine 10 mg tablet 10 mg PO DAILY 01/10/22 10/11/24 frpetvsz-kpx-uzylq ac 400 1 tab PO DAILY 01/10/22 10/11/24 mcg-calcium carb 500 mg-vit K1 20 mcg tablet (Women's 50 Plus Multivitamin) albuterol sulfate 90 mcg/actuation 2 puff inhalation Q4H PRN 06/21/24 10/11/24 aerosol inhaler Shortness Of Breath sertraline 100 mg tablet 150 mg PO DAILY 06/21/24 10/11/24 tirzepatide 5 mg/0.5 mL 5 mg SUBCUT .weekly 10/11/24 10/11/24 subcutaneous pen injector (Tommy) Previous Rx's ?Medication ?Instructions ?Recorded alprazolam 0.25 mg tablet 0.25 mg PO BID anxiety 30 days #60 07/06/24 tabs eptinezumab-jjmr 100 mg/mL 100 mg IV Q90D #1 mL 10/11/24 intravenous solution (Vyepti) rimegepant 75 mg disintegrating 75 mg PO .COMPLEX #16 tabs 10/11/24 tablet (Nurtec ODT) amlodipine 5 mg tablet (Norvasc) 5 mg PO DAILY #30 tabs 02/02/25 Allergies Allergy/AdvReac Type Severity Reaction Status Date / Time cinnamon Allergy Severe ALGY-Swell Verified 10/11/24 13:58 Lip/Tongue/Throat kiwi Allergy Severe ALGY-Bliste Verified 10/11/24 13:58 r tomato Allergy Severe ALGY-Hives Verified 10/11/24 13:58 aspirin Allergy Intermediate ALGY-Rash Verified 10/11/24 13:58 cephalexin Allergy Intermediate ALGY-Hives Verified 10/11/24 13:59 penicillin G Allergy Intermediate algy-rash Verified 10/11/24 13:58 Review of Systems Neuro: Reports: headache(s) [facility] ED PFS: Medical History (Updated 02/02/25 @ 06:28 by Jony Shepherd MD) Hemiplegic migraine Hypercholesteremia Type 2 diabetes mellitus with diabetic polyneuropathy Surgical History History of arthroplasty of right knee History of knee surgery multiple right knee Hx of cholecystectomy History of kidney surgery H/O hysterectomy with oophorectomy H/O section Family History Mother , at age 58 Cancer Lung, brain, bone Father , at age 79 Heart attack Other Diabetes Heart disease Thyroid disease Denies family history of CAD (coronary artery disease) Clotting disorder Dementia Hyperlipidemia Psychiatric illness Chronic kidney disease (CKD) Suicide Anesthesia complication Bleeding disorder Family history of premature coronary artery disease Lung disease Hypertension Stroke Social History Smoking and tobacco/nicotine status: never used tobacco/nicotine Second hand smoke exposure: No Alcohol intake: never Substance/Drug Use: never Household members: spouse Marital status: Current occupational status: disabled Current gender identity: Female Physical Exam Const: COMMON NORMALS: no acute distress, patient oriented x3 and healthy appearing HENMT: COMMON NORMALS: normocephalic and atraumatic HEAD & SCALP: normocephalic and atraumatic Eye: COMMON NORMALS: Equal, round and reactive pupils present and EOMs intact bilaterally PUPIL: Yes Equal, round and reactive pupils present Neck/C-Spine: COMMON NORMALS: full ROM and supple Chest: COMMONS NORMALS: normal inspection of the chest Resp: COMMON NORMALS: normal respiratory effort, No retractions, No use of accessory muscles and clear to auscultation bilaterally AUSCULTATION: clear to auscultation bilaterally Cardio: COMMON NORMALS: regular rate, regular rhythm and No murmurs present (Cardio) RATE: regular rate RHYTHM: regular rhythm Extremity: COMMON NORMALS: normal to inspection and full ROM Neuro: COMMON NORMALS: patient oriented x3, moves all extremities and no focal motor deficits Psych: COMMON NORMALS: mental status grossly normal, Normal thought process present and cooperative THOUGHT PROCESS: Normal thought process present Skin: COMMON NORMALS: no rashes or lesions noted and no wounds GENERAL SKIN EXAM: no rashes or lesions noted Course Vital Signs: Vital signs: Vital Signs Temperature 97.5 F L 02/02/25 05:43 Pulse Rate 77 02/02/25 06:39 Respiratory Rate 18 02/02/25 06:39 Blood Pressure 206/64 02/02/25 06:39 Pulse Oximetry 96 02/02/25 06:39 Oxygen Delivery Me thod Room Air 02/02/25 05:43 MDM - Headache Medical Decision Making Patient presents with headache that started gradually yesterday differential includes subarachnoid hemorrhage along with meningitis. I feel these are very unlikely is not a thunderclap headache is not the worst headache of her life and is of her typical migraine. She has no signs of meningitis no neck stiffness no fever. This is likely a migraine headache as she has a long history of migraines and this is typical for her migraines. She feels much improved here after Reglan Benadryl and Toradol she has had some hypertension here she states she has had high blood pressure readings the past but does not take any meds we will start her on Norvasc as well. She is stable for discharge follow-up PCP return if worsening. She understands and agrees to plan No radiology studies performed this visit Discharge Plan Discharge Patient Disposition: Home Clinical Impression: Hypertension, Migraine Condition: Stable Prescriptions: New amlodipine [Norvasc] 5 mg tablet 5 mg PO DAILY Qty: 30 0RF No Action diphenhydramine HCl [Benadryl] 25 mg capsule 25 mg PO QID PRN (Reason: Allergy Symptoms) Mounjaro 5 mg/0.5 mL pen injector 5 mg SUBCUT .weekly Nurtec ODT 75 mg tablet,disintegrating 75 mg PO .COMPLEX Qty: 16 3RF Rx Instructions: 75 mg orally; Dissolve one tablet by mouth once as needed for migraine headache. Do not take more than one tablet per 24 hours Vyepti 100 mg/mL solution 100 mg IV Q90D Qty: 1 3RF alprazolam 0.25 mg tablet 0.25 mg PO BID 30 Days Qty: 60 3RF Women's 50 Plus Multivitamin 400 mcg-500 mg calcium-20 mcg Tablet 1 tab PO DAILY cetirizine 10 mg tablet 10 mg PO DAILY sertraline 100 mg tablet 150 mg PO DAILY albuterol sulfate 90 mcg/actuation HFA aerosol inhaler 2 puff INHALATION Q4H PRN (Reason: Shortness Of Breath) Discharge Orders: Discharge ED (Routine); Ordered 02/02/25 Ordered By: Jony Shepherd Referrals: Dilcia Kevin PA [Primary Care Provider, [facility]] - 4-7 days Discharge Diet: Advance as tolerated Discharge Activity: Resume usual activity Patient Instructions: Migraine Headache (ED), Hypertension (ED) Print Language: [place] Coding Level of Care Code ED Straightener for Jordon Caruso
[2025-02-02 05:39] VITALS: BP 219/144; PULSE 72; RESP 16; TEMP 36.4; O2SAT 94
[2025-02-02 05:43] VITALS: BP 219/144; PULSE 72; RESP 16; TEMP 36.4; O2SAT 94
[2025-02-02] MEDS: metoclopramide 5 mg/mL SDV 2 mL 10 MG IVP (05:51)
[2025-02-02] MEDS: diphenhydrAMINE 50 mg/mL SDV 1mL IVP (05:52)
--- OUTSIDE RECORDS SUMMARY | 2025-02-02 05:52 | XMS_ITS | Encounter Summary ---
Author Organization [facility] Address [address] [place] [address] Care Team Providers Care Medical Esthetician Name Role Phone Jai Hopkins MD Primary Care Provider [phone] Reason for Referral * Outpatient Services (Routine) - Closed Specialty Diagnoses / Procedures Referred By Contac t Referred To Contact Radiology Diagnoses Dyspnea on exertion Chest pain on breathing Procedures ECHO STRESS W CONTRAST EXER W DOPP AND COLOR FL ECHO STRESS TEST EXERCISE W DOPP AND COLOR FLOW Nathan Dee MD Phone: tel: fax: [facility] [address] [place] [address] Phone: tel: fax: Referral ID Status Reason Start Date Expiration Date Visits Requested Visits Authorized [id number] Closed Interventional Scheduling (SGF) 12/17/2017 01/17/2019 1 1 Encounter Details Date Type Department Care Team (Late st Contact Info) Description 12/25/2017 Ancillary Orders [facility] [place] [address] [place] [address] Nathan Dee MD [address] [facility] [address] [place] [address] Dyspnea on exertion; Chest pain on breathing Social History Tobacco Use Types Packs/Day Years Used Date Smoking Tobacco: Never Smokeless Tobacco: Never Alcohol Use Standard Drinks/Week Comments No 0 (1 standard drink = 0.6 oz pur e alcohol) Comments No Sex and Gender Information Value Date Recorded Sex Assigned at Not on file Legal Sex Female 2:44 AM [employer] Gender Identity Not on file Sexual Orientation Not on file documented as of this encounter Plan of Treatment Not on file documented as of this encounter Results * ECHO STRESS W CONTRAST EXER W DOPP AND COLOR FL (12/25/2017 12:40 PM CDT) EJECTION FRACTION INTERFACE SYSTEM 12/25/2017 11:2 1 AM CDT Narrative INTERFACE SYSTEM - 12/25/2017 2:32 PM CDT [facility] Echocardiography-[address] [place] [address] Stress Echocardiography [place] protocol Patient: Josue Study ECHO STRESS TEST Nellie Mckeon ID: Gender: F : 1965 Age: 52 Room: Study 12/25/2017 Pt Outpatient Date: Status: Study 11:21:03 AM CSN #: [id number] Time: Ordering:Nathan Dee Interpreting:Ishmael Hernandez Clerical Adjuster: Cami Mccormick [facility] Indications and History: : Dyspnea on exertion [R06.09 (ICD-10-CM)]; Chest pain on breathing [R07.1 (ICD-10-CM)]. Risk factors: Family history of coronary artery disease. Hypertension. Diabetes mellitus. Morbidly obese. Labs, prior tests, procedures, and surgery: Echocardiography (11/10/2017). Summary and Conclusion: - Left ventricle: The cavity size was normal. Wall thickness was normal. Systolic function was normal. The visually estimated ejection fraction was in the range of 60% to 65%. No diagnostic regional wall motion abnormality identified. - Right ventricle: The cavity size was normal. Systolic function was normal. Systolic pressure was within the normal range. - Stress: Maximal heart rate during stress was 144bpm (85% of maximal predicted heart rate). The maximal predicted heart rate was 170bpm.The target heart rate was achieved. The heart rate response to stress was normal. The rate-pressure product for the peak heart rate and blood pressure was 40113kt Hg/min. The patient experienced no chest pain during stress. Functional capacity was normal. Maximal work rate: 7mets. - Stress ECG conclusions: There were no stress arrhythmias or conduction abnormalities. The stress ECG was negative for ischemia. - Staged echo: There was no echocardiographic evidence for stress-induced ischemia. Procedure information: Consent: The risks, benefits, and alternatives to the procedure were explained to the patient and consent was obtained. Procedure: Initial setup. A baseline ECG was recorded. Intravenous access was obtained. Surface ECG leads were monitored. Transthoracic echocardiography. Image quality was adequate. The study was technically difficult due to body habitus. Scanning was performed from the parasternal and apical acoustic windows. Intravenous contrast (Definity) was administered to opacify the LV. There were no complications. There were no contrast reactions. Patient was monitored per protocol. Treadmill exercise testing was performed using the [place] protocol. The patient exercised for 5 min 28 sec, to protocol stage 2. Exercise was terminated due to achievement of target heart rate, moderate dyspnea, and moderate fatigue. Transthoracic stress echocardiography. Images were captured at baseline and peak exercise. Study completion: The patient tolerated the procedure well. There were no complications. [place]one protocol. Study components: M-mode, complete 2D, complete spectral Doppler, and color Doppler. Height: 166.1cm. Height: 65.4in. Weight: 126.6kg. Weight: 278.4lb. BMI: 45.9kg/m\S\2. BSA: 2.49m\S\2. Study date: 12/25/2017. Study time: 11:21 AM. Location: Stress laboratory. Cardiac Anatomy: LEFT VENTRICLE: The cavity size was normal. Wall thickness was normal. Systolic function was normal. The visually estimated ejection fraction was in the range of 60% to 65%. No diagnostic regional wall motion abnormality identified. RIGHT VENTRICLE: The cavity size was normal. Systolic function was normal. Systolic pressure was within the normal range. LEFT ATRIUM: The atrium was normal in size. RIGHT ATRIUM: The atrium was normal in size. AORTIC VALVE: Structurally normal valve. Doppler: There was no stenosis. No regurgitation. Peak velocity ratio of LVOT to aortic valve: 0.47. Peak gradient (S): 10mm Hg. MITRAL VALVE: Structurally normal valve. ; Doppler: There was no evidence for stenosis. No regurgitation. Valve area by pressure half-time: 3.27cm\S\2. Indexed valve area by pressure half-time: 1.31cm\S\2/m\S\2. Peak gradient (D): 3mm Hg. TRICUSPID VALVE: Structurally normal valve. Doppler: There was no evidence for stenosis. No regurgitation. PULMONIC VALVE: Not well visualized. Doppler: There was no evidence for stenosis. No regurgitation. PERICARDIUM: There was no pericardial effusion. AORTA: Aortic root: The aortic root was not dilated. Baseline ECG: Normal sinus rhythm. Stress protocol: - Baseline HR: 63bpm BP: 145/90 (108) - Peak stress HR: 144bpm BP: 178/110 (133) Stress results: Maximal heart rate during stress was 144bpm (85% of maximal predicted heart rate). The maximal predicted heart rate was 170bpm.The target heart rate was achieved. The heart rate response to stress was normal. There was a normal resting blood pressure with an appropriate response to stress. The rate-pressure product for the peak heart rate and blood pressure was 84566gl Hg/min. The patient experienced no chest pain during stress. Functional capacity was normal. Maximal work rate: 7mets. Stress ECG: There were no stress arrhythmias or conduction abnormalities. The stress ECG was negative for ischemia. Peak stress: LV size was reduced appropriately. LV global systolic function was appropriately augmented from baseline. No evidence for new LV regional wall motion abnormalities. Stress echo results: There was no echocardiographic evidence for stress-induced ischemia. 2D measurements Doppler measurements Left ventricle Left ventricle LVID ED, PLAX 5.0 cm E', lat radha, TDI 9 cm/sec LVID ES, PLAX 2.9 cm E/e', lat radha, 9 FS, endocardial, 42 % TDI PLAX E', med radha, TDI 7 cm/sec LVID, ES 2.9 cm E/e', med radha, 12 LVPW, ED 1.2 cm TDI IVS/LVPW ratio, ED 0.98 E', avg, TDI 8 cm/sec Ventricular septum E/e', avg, TDI 10 IVS, ED 1.1 cm LVOT Left atrium Peak sonia, S 73.89 cm/sec AP dim 4.2 cm Peak gradient, S 2 mm Hg AP dim index 1.7 cm/m\S\2 Aortic valve SI dim, A4C 5.3 cm Peak sonia, S 157.25 cm/sec Area ES, A4C 22 cm\S\2 Peak gradient, S 10 mm Hg Vol, S 84 ml Peak sonia ratio, 0.47 Vol/bsa, S 34 ml/m\S\2 LVOT/AV Vol, ES, 1-p A4C 74 ml Mitral valve Vol/bsa, ES, 1-p A4C 30 ml/m\S\2 Peak E sonia 83.84 cm/sec Vol, ES, 1-p A2C 75 ml Peak A sonia 74.41 cm/sec Vol/bsa, ES, 1-p A2C 30 ml/m\S\2 Deceleration 232 ms Vol, ES, A/L 79 ml time Vol/bsa, ES, A/L 32 ml/m\S\2 Pressure 67 ms Right atrium half-time SI dim, ES 5.6 cm Peak gradient, D 3 mm Hg SI dim, ES, A4C 5.6 cm Peak E/A ratio 1.13 Right ventricle Area (PHT) 3.27 cm\S\2 RVID ED, PLAX 2.1 cm Area/bsa (PHT) 1.31 cm\S\2/m\S\2 Minor axis ED, A4C 5.6 cm RVID ED 2.1 cm [facility] are accredited with the [facility] Accreditation Commission - Echocardiography. Prepared and Electronically Authenticated Ishmael Hernandez Confirmed 12/25/2017 14:32 Procedure Note Ishmael Hernandez MD - 12/25/2017 [facility]ocardi[facility] [address] [place] [address] Stress Echocardiography [place] protocol Patient: Josue Study ECHO STRESS TEST Nellie Mckeon ID: Gender: F : 1965 Age: 52 Room: Study 12/25/2017 Pt Outpatient Date: Status: Study 11:21:03 AM CSN #: [id number] Time: Ordering:Nathan Dee Interpreting:Ishmael Hernandez Clerical Adjuster: Cami Mccormick [facility] Indications and History: : Dyspnea on exertion [R06.09 (ICD-10-CM)]; Chest pain on breathing [R07.1 (ICD-10-CM)]. Risk factors: Family history of coronary artery disease. Hypertension. Diabetes mellitus. Morbidly obese. Labs, prior tests, procedures, and surgery: Echocardiography (11/10/2017). Summary and Conclusion: - Left ventricle: The cavity size was normal. Wall thickness was normal. Systolic function was normal. The visually estimated ejection fraction was in the range of 60% to 65%. No diagnostic regional wall motion abnormality identified. - Right ventricle: The cavity size was normal. Systolic function was normal. Systolic pressure was within the normal range. - Stress: Maximal heart rate during stress was 144bpm (85% of maximal predicted heart rate). The maximal predicted heart rate was 170bpm.The target heart rate was achieved. The heart rate response to stress was normal. The rate-pressure product for the peak heart rate and blood pressure was 24841ar Hg/min. The patient experienced no chest pain during stress. Functional capacity was normal. Maximal work rate: 7mets. - Stress ECG conclusions: There were no stress arrhythmias or conduction abnormalities. The stress ECG was negative for ischemia. - Staged echo: There was no echocardiographic evidence for stress-induced ischemia. Procedure information: Consent: The risks, benefits, and alternatives to the procedure were explained to the patient and consent was obtained. Procedure: Initial setup. A baseline ECG was recorded. Intravenous access was obtained. Surface ECG leads were monitored. Transthoracic echocardiography. Image quality was adequate. The study was technically difficult due to body habitus. Scanning was performed from the parasternal and apical acoustic windows. Intravenous contrast (Definity) was administered to opacify the LV. There were no complications. There were no contrast reactions. Patient was monitored per protocol. Treadmill exercise testing was performed using the [place] protocol. The patient exercised for 5 min 28 sec, to protocol stage 2. Exercise was terminated due to achievement of target heart rate, moderate dyspnea, and moderate fatigue. Transthoracic stress echocardiography. Images were captured at baseline and peak exercise. Study completion: The patient tolerated the procedure well. There were no complications. [place] protocol. Study components: M-mode, complete 2D, complete spectral Doppler, and color Doppler. Height: 166.1cm. Height: 65.4in. Weight: 126.6kg. Weight: 278.4lb. BMI: 45.9kg/m\S\2. BSA: 2.49m\S\2. Study date: 12/25/2017. Study time: 11:21 AM. Location: Stress laboratory. Cardiac Anatomy: LEFT VENTRICLE: The cavity size was normal. Wall thickness was normal. Systolic function was normal. The visually estimated ejection fraction was in the range of 60% to 65%. No diagnostic regional wall motion abnormality identified. RIGHT VENTRICLE: The cavity size was normal. Systolic function was normal. Systolic pressure was within the normal range. LEFT ATRIUM: The atrium was normal in size. RIGHT ATRIUM: The atrium was normal in size. AORTIC VALVE: Structurally normal valve. Doppler: There was no stenosis. No regurgitation. Peak velocity ratio of LVOT to aortic valve: 0.47. Peak gradient (S): 10mm Hg. MITRAL VALVE: Structurally normal valve. ; Doppler: There was no evidence for stenosis. No regurgitation. Valve area by pressure half-time: 3.27cm\S\2. Indexed valve area by pressure half-time: 1.31cm\S\2/m\S\2. Peak gradient (D): 3mm Hg. TRICUSPID VALVE: Structurally normal valve. Doppler: There was no evidence for stenosis. No regurgitation. PULMONIC VALVE: Not well visualized. Doppler: There was no evidence for stenosis. No regurgitation. PERICARDIUM: There was no pericardial effusion. AORTA: Aortic root: The aortic root was not dilated. Baseline ECG: Normal sinus rhythm. Stress protocol: - Baseline HR: 63bpm BP: 145/90 (108) - Peak stress HR: 144bpm BP: 178/110 (133) Stress results: Maximal heart rate during stress was 144bpm (85% of maximal predicted heart rate). The maximal predicted heart rate was 170bpm.The target heart rate was achieved. The heart rate response to stress was normal. There was a normal resting blood pressure with an appropriate response to stress. The rate-pressure product for the peak heart rate and blood pressure was 91447be Hg/min. The patient experienced no chest pain during stress. Functional capacity was normal. Maximal work rate: 7mets. Stress ECG: There were no stress arrhythmias or conduction abnormalities. The stress ECG was negative for ischemia. Peak stress: LV size was reduced appropriately. LV global systolic function was appropriately augmented from baseline. No evidence for new LV regional wall motion abnormalities. Stress echo results: There was no echocardiographic evidence for stress-induced ischemia. 2D measurements Doppler measurements Left ventricle Left ventricle LVID ED, PLAX 5.0 cm E', lat radha, TDI 9 cm/sec LVID ES, PLAX 2.9 cm E/e', lat radha, 9 FS, endocardial, 42 % TDI PLAX E', med radha, TDI 7 cm/sec LVID, ES 2.9 cm E/e', med radha, 12 LVPW, ED 1.2 cm TDI IVS/LVPW ratio, ED 0.98 E', avg, TDI 8 cm/sec Ventricular septum E/e', avg, TDI 10 IVS, ED 1.1 cm LVOT Left atrium Peak sonia, S 73.89 cm/sec AP dim 4.2 cm Peak gradient, S 2 mm Hg AP dim index 1.7 cm/m\S\2 Aortic valve SI dim, A4C 5.3 cm Peak sonia, S 157.25 cm/sec Area ES, A4C 22 cm\S\2 Peak gradient, S 10 mm Hg Vol, S 84 ml Peak sonia ratio, 0.47 Vol/bsa, S 34 ml/m\S\2 LVOT/AV Vol, ES, 1-p A4C 74 ml Mitral valve Vol/bsa, ES, 1-p A4C 30 ml/m\S\2 Peak E sonia 83.84 cm/sec Vol, ES, 1-p A2C 75 ml Peak A sonia 74.41 cm/sec Vol/bsa, ES, 1-p A2C 30 ml/m\S\2 Deceleration 232 ms Vol, ES, A/L 79 ml time Vol/bsa, ES, A/L 32 ml/m\S\2 Pressure 67 ms Right atrium half-time SI dim, ES 5.6 cm Peak gradient, D 3 mm Hg SI dim, ES, A4C 5.6 cm Peak E/A ratio 1.13 Right ventricle Area (PHT) 3.27 cm\S\2 RVID ED, PLAX 2.1 cm Area/bsa (PHT) 1.31 cm\S\2/m\S\2 Minor axis ED, A4C 5.6 cm RVID ED 2.1 cm [facility] are accredited with the [facility] Accreditation Commission - Echocardiography. Prepared and Electronically Authenticated Ishmael Hernandez Confirmed 12/25/2017 14:32 Nathan Dee MD ORDERABLES Final R esult INTERFACE SYSTEM Refer to clinic/hospital department documented in this encounter Visit Diagnoses Diagnosis Dyspnea on exertion Other dyspnea and respiratory abnormality Chest pain on breathing Painful respiration Dyspnea on exertion Other dyspnea and respiratory abnormality Chest pain on breathing Painful respiration documented in this encounter Care Teams Medical Esthetician Relationship Specialty Start Date End Date Jai Hopkins MD [address] [place] [address] PCP - General Family Practice 10/13/17 documented as of this encounter
--- OUTSIDE RECORDS SUMMARY | 2025-02-02 05:52 | XMS_ITS | Clinical Summary ---
Author Organization [facility] Address [address] [place] [address] Phone Care Team Providers Care Screw Supervisor Name Role Phone Unavailable Primary Care Provider Unavailabl e Allergies Active Allergy Reactions Criticality Noted Date Comments Aspirin Hives,Swelling High 07/17/2017 Cinnamon Anaphylaxis High 08/14/2018 Grass Pollen-September Grass Standard Unknown 02/07/2022 Kiwi Other (See Comments) 08/10/2018 Blisters in Mouth Latex Other (See Comments) Low 03/26/2021 Blisters in mouth with Kiwi Penicillins Anaphylaxis,Hives High 07/17/2017 Pt states at age 8 she had throat swelling and hives Tomato Anaphylaxis,Hives High 02/01/2020 Medications multivitamin with minerals (HAIR,SKIN AND NAILS ORAL) Take 1 Capsule by mouth daily. 9 Active BIOTIN ORAL Take 3 Tablets by mouth daily. 9 Active cholecalciferol, vitamin D3, 1,000 unit Take 1,000 Units by mouth daily. Active diphenhydrAMINE (BENADRYL) 25 mg tablet Take 25-50 mg by mouth every 8 hours as needed for Allergies. Active hydrOXYzine HCL (ATARAX) 25 mg tabletIndications :Mild episode of recurrent major depressive disorder,Insomnia , unspecified type TAKE 1 TABLET THREE TIMES DAILY NEEDED FOR ITCHING 180 Tablet 1 Active sertraline (ZOLOFT) 100 mg tabletIndications :Moderate episode of recurrent major depressive disorder (CMS/HCC) Take 2 Tablets (200 mg) by mouth daily. 180 Tablet 1 3 Active diclofenac sodium (VOLTAREN) 1 % gel APPLY 4 GRAMS TO AFFECTED AREA FOUR TIME DAILY 100 Gram 3 3 Active ibuprofen 200 mg tablet Take 400 mg by mouth every 8 hours as needed for Pain, Mild. Active mv-min/folic/vit K/lycop/coQ10 (DAILY MULTIVITAMIN ORAL) Take 1 Tablet by mouth daily. Active camphor-eucalyptu s oiL-menthoL (VAPORUB) 4.8-1.2-2.6 % Ointment Apply to affected area daily. Active buPROPion HCL (WELLBUTRIN SR) 150 mg Sustained Release 12 hour tabletIndications :Mild episode of recurrent major depressive disorder TAKE ONE TABLET BY MOUTH TWICE DAILY @ 9AM & 5PM 180 Tablet 3 Active gabapentin (NEURONTIN) 800 mg tablet Take 1 Tablet (800 mg) by mouth 4 times daily. 360 Tablet 3 Active linezolid 600 mg tablet Take 600 mg by mouth 2 times daily. Active cholecalciferol 1,250 mcg (50,000 unit) Capsule Take 1 Capsule (50,000 Units) by mouth every 7 days. 8 Capsule 3 Active oxyCODONE (ROXICODONE) 5 mg tabletIndications :Status post revision of total knee replacement, right Take 1 Tablet (5 mg) by mouth every 4 hours as needed for Pain. Max Daily Amount: 30 mg 42 Tablet 09/11/2022 4:30 PM CDT 3 Active docusate sodium (Colace) 100 mg capsule Take 1 Capsule (100 mg) by mouth 2 times daily. 60 Capsule 3 Active famotidine (PEPCID) 20 mg tablet Take 1 Tablet (20 mg) by mouth 2 times daily. 80 Tablet 09/11/2022 4:30 PM CDT 3 Active ondansetron (ZOFRAN) 4 mg Tablet Take 1 Tablet (4 mg) by mouth every 8 hours as needed for Nausea/Emesis . 20 Tablet 09/11/2022 4:30 PM CDT 3 Active clopidogreL (PLAVIX) 75 mg TabletIndications :Hemiplegic migraine without status migrainosus, not intractable Take 1 Tablet (75 mg) by mouth daily. 30 Tablet 09/11/2022 4:30 PM CDT 3 Active tiZANidine (ZANAFLEX) 4 mg Tablet Take 1 Tablet (4 mg) by mouth every 6 hours as needed for Spasm. 30 Tablet 3 Active buPROPion HCL (WELLBUTRIN XL) 300 mg Extended Release 24 hour tablet Take 300 mg by mouth daily. 3 Active divalproex (DEPAKOTE) 500 mg delayed release tablet TAKE ONE TABLET BY MOUTH TWICE DAILY @ 9AM & 5PM 60 Tablet 3 Active cetirizine (ZyrTEC) 10 mg tablet Take 1 tablet by mouth once daily 30 Tablet 4 Active traZODone (DESYREL) 100 mg tablet TAKE TWO TABLETS BY MOUTH DAILY AT 9PM AT BEDTIME 200 Tablet 4 Active Active Problems Problem Noted Date Diagnosed Date S/P Stage II Revision Right Total Knee Arthroplasty - 09/10/2022 09/10/2022 History of removal of joint prosthesis of right knee due to infection 08/19/2022 History of kidney stones 08/19/2022 Chronic allergic rhinitis 08/19/2022 Muscle spasm 08/19/2022 Preoperative general physical examination 2022 At risk for Clostridioides difficile infection 0 01/15/2022 Penicillin allergy 01/15/2022 S/P Stage I Revision Right T otal Knee Arthroplasty with Antibiotic Spacers - 01/14/2022 01/13/2022 Status post total right knee replacement - 04/0604/05/2021 Morbid obesity with body mass index of 40.0-49.9 03/26/2021 Type 2 diabetes mellitus wit hout complication, without long-term current use of insulin 12/09/2017 OA (osteoarthritis) 09/10/2017 Overview (08/24/2020): Knees and ankles Mild episode of recurrent major depressive disor michael 09/10/2017 Hemiplegic migraine without status migrainosus, not intractable Temporomandibular joint disorder Latex sensitivity Overview (03/26/2021): Kiwi, Blisters in Mouth Hyperlipidemia Primary hypertension Arthritis Anxiety Resolved Problems Problem Noted Date Diagnosed Date Resolved Date Cellulitis of right lower leg 01/11/2022 08/19/2022 Referral of patient 12/12/2017 02/21/20 18 Overview (08/23/2020): Symptomatic bradycardia Morbid obesity with BMI of 45.0-49.9, adult 12/09/2017 12/18/2020 Hypotension 11/09/2017 12/09/2017 Chest pressure 11/09/2017 12/09/2017 Symptomatic bradycardia 11/09/201711/26 Near syncope 11/09/2017 12/09/2017 History of essential hypertension 09/10/2017 12/09/2017 Intractable hemiplegic migra ine without status migrainosus 09/10/2017 12/09/2017 Hypertriglyceridemia 09/10/2017 022 Right sided weakness 018 Speech disturbance 8 Post-operative nausea and vomiting 02/14/2022 Dyspnea on exertion 02/15/20 22 Diabetes mellitus 02/14/2022 Overview (03/26/2021): diet controlled Depression 02/14/2022 Preop general physical exam 02/14/2022 Encounters Date Type Department Care Team Description 02/01/2025 External Device Data [facility] ABSTRACTION Provider, Abstract 01/04/2025 External Device Data [facility] ABSTRACTION Provider, Abstract 12/14/2024 External Device Data ST[facility] ABSTRACTION Provider, Abstract from Last 3 Months Immunizations Immunization Administration Dates Next Due INFLUENZA VACCINE QUADRIVALENT 6 MOS UP PF IM Family History Medical History Relation Name Comments Healthy Brother Heart Disease Daughter Maru Heart defect Daughter Maru Heart Attack Father Jacob Heart Disease Father Jacob passed with NC at 80's Arthritis-osteo Maternal Aunt Breast Cancer Maternal Aunt Heart Disease Maternal Grandfather Arthritis-rheumatoid Maternal Grandmother Stomach Cancer Maternal Grandmother Heart Attack Maternal Uncle Brain Cancer Mother Bisi Lung Cancer Mother B[place] Ovarian Cancer Mother B[place] No Known Problems Paternal Aunt No Known Problems Paternal Grandfather No Known Problems Paternal Grandmother No Known Problems Paternal Uncle Other Son 1 Cristobal murlam Healthy Son 2 Jocob Relation Name Status Comments Brother Alive Daughter Maru Father Jacob Maternal Aunt Alive Maternal Grandfather Maternal Grandmother Maternal Uncle Mother Bisi Paternal Aunt Paternal Grandfather Paternal Grandmother Paternal Uncle Son 1 Cristobal Alive Son 2 Morgan Alive Social History Tobacco Use Types Packs/Day Years Used Date Smoking Tobacco: Never Smokeless Tobacco: Never Tobacco Cessation:Counseling Given: Not Answered Alcohol Use Standard Drinks/Week Comments Yes 0 (1 standard drink = 0.6 oz pur e alcohol) occassionaly Financial Resource Strain Answer Date R ecorded How hard is it for you to pa y for the very basics like food, housing, medical care, and heating? Not hard at all 06/19/2022 Food Insecurity Answer Date Recorded In the past 12 months, have you worried that your food would run out before you had money to buy more? Never true 06/19/2022 In the past 12 months, did y ou run out of food and didn't have money to buy more? Never true 06/19/2022 Transportation Needs Answer Date Record ed In the past 12 months, has l ack of transportation kept you from medical appointments or from getting medications? No 06/19/2022 Lack of Transportation (Non-Medical) Not on file 06/19/2022 Feeling Safe Answer Date Recorded Are you in a relationship wi th someone who hurts you emotionally and/or physically? No 09/10/2022 Food Insecurity Answer Date Recorded Patient needs follow up regarding: Not on file 06/28/2023 Transportation Needs Answer Date Record ed Patient needs follow up regarding: Not on file 06/28/2023 Housing Stability Answer Date Recorded Patient needs follow up regarding: Not on file 06/28/2023 Utility Needs Answer Date Recorded Patient needs follow up regarding: Not on file 06/28/2023 Comments No Sex and Gender Information Value Date Recorded Sex Assigned at Not on file Legal Sex Female 11:03 AM RODEO CLOWN Gender Identity Not on file Sexual Orientation Not on file Last Filed Vital Signs Vital Sign Reading Time Taken Comments Blood Pressure 136/88 11/04/2022 11:15 AM CDT Pulse 69 10/09/2022 2:53 PM CDT Temperature 37.1 C (98.7 F) 10/09/2022 2:53 PM CDT Respiratory Rate 16 09/11/2022 5:17 PM CDT Oxygen Saturation 97% 10/09/2022 2:53 PM CDT Inhaled Oxygen Concentration - - Weight 116.1 kg (256 lb) 11/04/2022 11:15 AM CDT Height 160 cm (5' 3 ) 11/04/2022 11:15 AM CDT Body Mass Index 45.35 11/04/2022 11:15 AM CDT Plan of Treatment Health Maintenance Due Date Last Done Comments DIABETES ANNUAL FOOT EXAM 10/27/1985 DTAP/TDAP/TD VACCINES (1 - Tdap) 10/27/1986 HEPATITIS B VACCINES (1 of 3 - 19+ 3-dose series) 10/27/1986 HPV/Cotest (21-29) 10/27/1988 CERVICAL CANCER SCREENING 10/27/1997 HPV/Cotest (30-65) 10/27/1997 PAP SMEAR 10/27/1997 COLORECTAL SCREENING 10/27/2012 FIT/FOBT Q 1 year 10/27/2012 Flex Sig/CT Colonography Q 5 years 10/27/2012 ZOSTER VACCINE (1 of 2) 10/27/2017 BREAST CANCER SCREENING 02/15/2021 02/16/20 20, 02/16/2020, 03/17/2018, Additional history exists DIABETES MICROALBUMIN ANNUAL SCREEN 04/19/2021 04/19/2020, 03/19/2019 LDL CHOLESTEROL ANNUAL 10/02/2022 2, 04/19/2020, 03/19/2019, Additional history exists DIABETES ANNUAL RETINAL EXAM 12/17/2022, 04/10/2018, 04/10/2018 DIABETES HBA1C Q 6 MONTHS 02/15/20232022, 10/02/2021, 03/26/2021, Additional history exists INFLUENZA VACCINE (#1) 2024 3, 02/01/2020, 06/15/2019, Additional history exists Colorectal Cancer Screening 07/17/2025 FIT-DNA Q 3 years 07/17/2025 07/17/2022 Medical Devices Implanted Type Area Radiation Safety Officer Device Identifier Shelf Expiration Date Model / Serial / Lot Bird In Hand Suture 3.5x14.8mm Bio [facility] Swiveloc Ar-2325bcc - [id number] Implanted:Qty: 1 on 04/30/2021 by Joseph Dolan MD at [facility] Bird In Hand Right: Knee [employer] [id number] 08/25/2022 AR-2325BCC / / [id number] Bird In Hand Suture 5.5x16.3mm Corkscrew Ft Ii Ti Dbl #2fw Ar-1928sf-2 - [id number] Implanted:Qty: 1 on 04/30/2021 by Joseph Dolan MD at [facility] Bird In Hand Right: Knee [employer] [id number] 01/26/2024 AR-1928SF-2 / / [id number] Filler Bone Stimulan Paste 5cc W/Beads 620-005 - [id number] Implanted:Qty: 1 on 01/14/2022 by Joseph Dolan MD at [facility] Biological Right: Knee [employer] 08/25/2024 620-005 / / [id number] Filler Bone Stimulan Paste 5cc W/Beads 620-005 - [id number] Implanted:Qty: 1 on 01/14/2022 by Joseph Dolan MD at [facility] Biological Right: Knee [employer] 04/27/2024 620-005 / / [id number] Cement Palacos Mv+G 40gm Md Viscosity 9060898 - [id number] Implanted:Qty: 1 on 04/06/2021 by Blane Degroot MD at [facility] Cement Right: Knee [employer] [id number] 12/26/2021 [id number] / / [id number] Cement Palacos Mv+G 40gm Md Viscosity 1494061 - [id number] Implanted:Qty: 1 on 04/06/2021 by Blane Degroot MD at [facility] Cement Right: Knee [employer] [id number] 12/26/2021 [id number] / / [id number] Cement Palacos Mv+G 40gm Md Viscosity 4973064 - [id number] Implanted:Qty: 1 on 01/14/2022 by Joseph Dolan MD at [facility] Cement Right: Knee [employer] [id number] 05/28/2025 [id number] / / [id number] Cement Palacos Mv+G 40gm Md Viscosity 2761376 - [id number] Implanted:Qty: 1 on 01/14/2022 by Joseph Dolan MD at [facility] Cement Right: Knee [employer] [id number] 05/28/2025 [id number] / / [id number] Cement Palacos Mv+G 40gm Md Viscosity 1299625 - [id number] Implanted:Qty: 1 on 09/10/2022 by Blane Degroot MD at [facility] Cement Right: Knee [employer] [id number] 07/26/2025 [id number] / / [id number] Cement Palacos Mv+G 40gm Viscosity 9984626 - [id number] Implanted:Qty: 1 on 09/10/2022 by Blane Degroot MD at [facility] Cement Right: Knee [employer] [id number] 07/26/2025 [id number] / / [id number] Comp Tib Attune Fb Cmnt Sz4 1506-70-004 - [id number] Implanted:Qty: 1 on 04/06/2021 by Blane Degroot MD at [facility] Knee Right: Knee [employer] [id number] 12/26/2030 [id number] / / [id number] Comp Fem Attune Ps Sz 4n Rt Cmntd 1504-10-224 - [id number] Implanted:Qty: 1 on 04/06/2021 by Blane Degroot MD at [facility] Knee Right: Knee [employer] [id number] 05/28/2030 [id number] / / [id number] Insert Attune Fb Ps Sz4 14mm 1516-40-414 - [id number] Implanted:Qty: 1 on 04/30/2021 by Joseph Dolan MD at [facility] Knee Right: Knee [employer] [id number] 01/25/2022 [id number] / / [id number] Augment Fem Attune Post Sz4 4mm 1549-04-001 - [id number] Implanted:Qty: 1 on 09/10/2022 by Blane Degroot MD at [facility] Knee Right: Knee [employer] [id number] 12/27/2031 [id number] / / [id number] Augment Fem Attune Dist Sz4 8mm Rev 1547-04-002 - [id number] Implanted:Qty: 1 on 09/10/2022 by Blane Degroot MD at [facility] Knee Right: Knee [employer] [id number] 04/27/2028 [id number] / / [id number] Sleeve Fem Attune Rev 35mm 151 - [id number] Implanted:Qty: 1 on 09/10/2022 by Blane Degroot MD at [facility] Knee Right: Knee [employer] [id number] 07/26/2032 [id number] / / [id number] Comp Fem Attune Rev Crs Sz 4 Rt Cmntd 1504-40-204 - [id number] Implanted:Qty: 1 on 09/10/2022 by Blane Degroot MD at [facility] Knee Right: Knee [employer] [id number] 06/25/2032 [id number] / / [id number] Stem Fem Attune 17m36ml Rev Pressfit 1513-16-060 - [id number] Implanted:Qty: 1 on 09/10/2022 by Blane Degroot MD at [facility] Knee Right: Knee [employer] [id number] 12/27/2031 15116-060 / / [id number] Augment Fem Attune Post Sz4 4mm 1549-04-001 - [id number] Implanted:Qty: 1 on 09/10/2022 by Blane Degroot MD at [facility] Knee Right: Knee [employer] [id number] 02/26/2032 [id number] / / [id number] Sleeve Tib Attune Rev 37mm - [id number] Implanted:Qty: 1 on 09/10/2022 by Blane Degroot MD at [facility] Knee Right: Knee [employer] [id number] 05/28/2032 151 / / [id number] Baseplate Tib Attune Rev Sz3 1506-60-003 - [id number] Implanted:Qty: 1 on 09/10/2022 by Blane Degroot MD at [facility] Knee Right: Knee [employer] [id number] 05/28/2032 [id number] / / [id number] Stem Fem Attune 91x44sl Rev Pressfit 151-16-060 - [id number] Implanted:Qty: 1 on 09/10/2022 by Blane Degroot MD at [facility] Knee Right: Knee [employer] [id number] 06/25/2032 / / [id number] Augment Fem Attune Dist Sz4 8mm Rev 1547-04-002 - [id number] Implanted:Qty: 1 on 09/10/2022 by Blane Degroot MD at [facility] Knee Right: Knee [employer] [id number] 08/25/2030 [id number] / / [id number] Revison Crs Rotatin Platform Insert [id number] Implanted:Qty: 1 on 09/10/2022 by Blane Degroot MD at [facility] Right: Knee [employer] 02/26/2024 [id number] / / [id number] Explanted Type Area Radiation Safety Officer Device Identifier Shelf Expiration Date Model / Serial / Lot Insert Attune Fb Ps Sz4 12mm 1516-40-412 - [id number] Implanted:Qty: 1 on 04/06/2021 by Blane Degroot MD at [facility] Explanted:Qty: 1 on 04/30/2021 by Joseph Dolan MD at [facility] Knee Right: Knee [employer] [id number] 11/25/2025 [id number] / / [id number] [facility] Tib Med Ml70 Ap42 H10 Rkinmd - [id number] Implanted:Qty: 1 on 01/14/2022 by Joseph Dolan MD at [facility] Explanted:Qty: 1 on 09/10/2022 by Blane Degroot MD at [facility] Knee Right: Knee [employer] 07/26/2025 RKINMD / / [id number] Remedy Stemmed Femoral Component Implanted:Qty: 1 on 01/14/2022 by Joseph Dolan MD at [facility] Explanted:Qty: 1 on 09/10/2022 by Blane Degroot MD at [facility] Right: Knee 01/26/2024 OSTER[employer] S-RSKFSM / / [id number] Stem Extension Component Implanted:Qty: 1 on 01/14/2022 by Joseph Dolan MD at [facility] Explanted:Qty: 1 on 09/10/2022 by Blane Degroot MD at [facility] Right: Knee 12/26/2024 OSTEOREMEDIE S-QTC574 / / [id number] Stem Extension Component Implanted:Qty: 1 on 01/14/2022 by Joseph Dolan MD at [facility] Explanted:Qty: 1 on 09/10/2022 by Blane Degroot MD at [facility] Right: Knee 12/26/2024 OSTEOREMEDIE S-EVY289 / / [id number] Medium Implanted:Qty: 1 on 01/14/2022 by Joseph Dolan MD at [facility] Explanted:Qty: 1 on 09/10/2022 by Blane Degroot MD at [facility] Right: Knee 12/26/2024 REMEDY-RSKTM D / / [id number] Procedures Procedure Name Priority Date/Time Associated Diagnosis Comments HEMOGLOBIN A1C Routine 08/16/2022 11:54 AM CDT COLON CANCER SCREEN, STOOL DNA Routine 07/17/2022 3:00 PM CDT Encounter for colorectal cancer screening HM DIABETES EYE EXAM Routine 12/17/2021 LIPID PANEL Routine 10/02/2021 1:46 PM CDT Type 2 diabetes mellitus without complication, without long-term current use of insulin ([facility]) Hypertriglyceridemi a MICROALBUMIN/CREATIN INE RATIO, RANDOM UR Routine 04/19/2020 9:31 AM RODEO CLOWN MAMMO SCREEN BILAT W OR WO CAD Routine 02/16/2020 12:59 PM CDT Screening mammogram, encounter for from Last 3 Months or Most Recently Relevant to Health Maintenance Results * (ABNORMAL) HEMOGLOBIN A1C (08/16/2022 11:54 AM CDT) HEMOGLOBIN A1C 5.8(H) <=5.6 % 08/16/2022 12:18 PM CDT [facility] EST. AVG GLUCOSE, A1C 120 mg/dL 08/16/2022 12:18 PM CDT [facility] Blood Venipuncture / Unknown 08/16/2022 11:54 AM CDT 08/16/2022 11:58 AM CDT Narrative [facility] - 08/16/2022 12:18 PM CDT HGB A1C INTERPRETATION NORMAL: <5.7% PRE-DIABETES: 5.7 - 6.4% DIABETES: 6.5% OR GREATER us Neymar Trinidad MD CHEMISTRY ORDERABLES Final Resu lt [facility] CLIA #[id number] [address] [place] [address] * COLON CANCER SCREEN, STOOL DNA (07/17/2022 3:00 PM CDT) COLOGUARD RESULT Negative Negative [facility] Comment: NEGATIVE TEST RESULT. A negative Cologuard result indicates a low likelihood that a colorectal cancer (CRC) or advanced adenoma (adenomatous polyps with more advanced pre-malignant features) is present. The chance that a person with a negative Cologuard test has a colorectal cancer is less than 1 in 1500 (negative predictive value >99.9%) or has an advanced adenoma is less than 5.3% (negative predictive value 94.7%). These data are based on a prospective cross-sectional study of 10,000 individuals at average risk for colorectal cancer who were screened with both Cologuard and colonoscopy. (Jarod Bailon al, N Engl J Med 2014;370(14):9589-5764) The normal value (reference range) for this assay is negative. COLOGUARD RE-SCREENING RECOMMENDATION: Periodic colorectal cancer screening is an important part of preventive healthcare for asymptomatic individuals at average risk for colorectal cancer. Following a negative Cologuard result, the [place] [employer] and U.S. Multi-Society Task Force screening guidelines recommend a Cologuard re-screening interval of 3 years. References: [place] [employer] Guideline for Colorectal Cancer Screening: https://www.cancer.org/cancer/wnfah-nyyjnb-ppyjez/avrmybunu-ydalwldpc-vqapyix/ac s-rec ommendations.html.; Babak VELOZ, Raimundo DOUGHERTY, Rosalba RubioK, Colorectal Cancer Screening: Recommendations for Physicians and Patients from the U.S. Multi-Society Task Force on Colorectal Cancer Screening , Am J Gastroenterology 2017; 112:9909-5168. TEST DESCRIPTION: Composite algorithmic analysis of stool DNA-biomarkers with hemoglobin immunoassay. Quantitative values of individual biomarkers are not reportable and are not associated with individual biomarker result reference ranges. Cologuard is intended for colorectal cancer screening of adults of either sex, 45 years or older, who are at average-risk for colorectal cancer (CRC). Cologuard has been approved for use by the U.S. FDA. The performance of Cologuard was established in a cross sectional study of average-risk adults aged 50-84. Cologuard performance in patients ages 45 to 49 years was estimated by sub-group analysis of near-age groups. Colonoscopies performed for a positive result may find as the most clinically significant lesion: colorectal cancer [4.0%], advanced adenoma (including sessile serrated polyps greater than or equal to 1cm diameter) [20%] or non- advanced adenoma [31%]; or no colorectal neoplasia [45%]. These estimates are derived from a prospective cross-sectional screening study of 10,000 individuals at average risk for colorectal cancer who were screened with both Cologuard and colonoscopy. (Jarod Bailon al, N Engl J Med 2014;370(14):2717-6547.) Cologuard may produce a false negative or false positive result (no colorectal cancer or precancerous polyp present at colonoscopy follow up). A negative Cologuard test result does not guarantee the absence of CRC or advanced adenoma (pre-cancer). The current Cologuard screening interval is every 3 years. ([place] [employer] and U.S. Multi-Society Task Force). Cologuard performance data in a 10,000 patient pivotal study using colonoscopy as the reference method can be accessed at the following location: www.Outlisten/results. Additional description of the Cologuard test process, warnings and precautions can be found at [email or web address].Invia.cz. Stool STOOL SPECIMEN / Unknown 07/17/2022 3:00 PM CDT 07/18/2022 6:28 PM CDT Kena SALDAÑA BODY FLUIDS AND STOOLS Final Res ult [employer] CLIA # [id number] [address] , [address] [place] [address] * DIABETES EYE EXAM (12/17/2021) us Abstract Provider HEALTH MAINTENANCE Final Resul t * LIPID PANEL (10/02/2021 1:46 PM CDT) CHOLESTEROL 174 <200 mg/dL [facility] HDL 54 > OR = 50 mg/dL [facility] TRIGLYCERIDE 140 <150 mg/dL [facility] LDL CALCULATED 96 mg/dL (calc) [facility] Comment: Reference range: <100 Desirable range <100 mg/dL for primary prevention; <70 mg/dL for patients with CHD or diabetic patients with > or = 2 CHD risk factors. LDL-C is now calculated using the Dani calculation, which is a validated novel method providing better accuracy than the Friedewald equation in the estimation of LDL-C. Herbert RIZVI et al. QUINTON. 2013;310(19): 0899-0240 (http://education.Dizzion/faq/GOM482) CHOL/HDL RATIO 3.2 <5.0 (calc) [facility] TOTAL NON-HDL CHOL(LDL+VLDL) 120 <130 mg/dL (calc) [facility] Comment: For patients with diabetes plus 1 major ASCVD risk factor, treating to a non-HDL-C goal of <100 mg/dL (LDL-C of <70 mg/dL) is considered a therapeutic option. [facility]formed [facility] [address] [place] [address] Dave Morse D.O., MPH Blood 10/02/2021 1:46 PM CDT 10/03/2021 4:04 AM CDT Kena Thompson CRATE ICER CHEMISTRY ORDERABLES Final Resul t [facility] [phone] * MICROALBUMIN/CREATININE RATIO, RANDOM UR (04/19/2020 9:31 AM RODEO CLOWN) MICROALBUMIN, URINE 1.4 No Reference Range mg/dL 04/19/2020 8:48 PM RODEO CLOWN [facility] SERVICES-PORSHA COKER CREATININE, URINE 141.8 29.0 - 226.0 mg/dL 04/19/2020 8:48 PM RODEO CLOWN [facility] LABORATORY SERVICES-PORSHA COKER Comment:Reference Range vari es with fluid intake and diet. MICROALBUMIN/C REAT RATIO, UR 9.9 <25.0 mg/g 04/19/2020 8:48 PM RODEO CLOWN [facility] LABORATORY SERVICESDAYANA COKER Urine URINE SPECIMEN OBTAINED BY CLEAN CATCH PROCEDURE / Unknown Collection / Unknown 04/19/2020 9:31 AM RODEO CLOWN 04/19/2020 8:07 PM RODEO CLOWN Narrative [facility] LABORATORY SERVICES-PORSHA COKER - 04/19/2020 8:48 PM RODEO CLOWN Condition Microalbumin/Creat ratio Normal Males <17 Normal Females <25 Microalbuminuria Males 17-299 Microalbuminuria Females 25-299 Overt proteinuria >=300 us Kena SALDAÑA URINE ORDERABLES Final Result [facility] LABORATORY SERVICES-PORSHA COKER ANJELICA# [id number] [address] [place] [address] * MAMMO SCREEN BILAT W OR WO CAD (02/16/2020 12:59 PM CDT) Anatomical Region Laterality Modality Breast Bilateral Other Narrative 02/17/2020 9:22 AM CDT Bilateral Mammogram Reason for Exam: Screening Comparison: Compared to: 03/17/2018 MAMMO SCREEN BILAT W OR WO CAD Findings: Bilateral CC and MLO views were obtained. This examination was reviewed with the aid of a computer-aided detection system(CAD). Breast Composition: There are scattered areas of fibroglandular density. There are no suspicious masses, areas of architectural distortions, or microcalcifications to suggest malignancy. No significant new findings since the prior mammogram(s). Impression: Negative screening mammogram. Recommendation: Routine annual follow-up Overall Assessment: Birads Category 2: Benign Procedure Note Jazmine Ayers MD - 09/19/2020 Bilateral Mammogram Reason for Exam: Screening Comparison: Compared to: 03/17/2018 MAMMO SCREEN BILAT W OR WO CAD Findings: Bilateral CC and MLO views were obtained. This examination was reviewed with the aid of a computer-aided detection system(CAD). Breast Composition: There are scattered areas of fibroglandular density. There are no suspicious masses, areas of architectural distortions, or microcalcifications to suggest malignancy. No significant new findings since the prior mammogram(s). Impression: Negative screening mammogram. Recommendation: Routine annual follow-up Overall Assessment: Birads Category 2: Benign us Kena VELAZCOP MAMMO ORDERABLES Final Result from Last 3 Months or Most Recently Relevant to Health Maintenance Insurance MEDICAID [place] MEDICARE HMO RX [facility] Medicare Part D Advance Directives For more information, please contact: [phone] * Full Code (Latest Code Status on File) Date Activated Date Inactivated Comments 09/10/2022 5:49 PM 09/11/2022 9:34 PM * Full Code Date Activated Date Inactivated Comments 09/10/2022 10:13 AM 09/10/2022 5:49 PM * Full Code Date Activated Date Inactivated Comments 01/14/2022 3:30 PM 01/18/2022 6:16 PM * Full Code Date Activated Date Inactivated Comments 01/14/2022 10:11 AM 01/14/2022 3:29 PM * Full Code Date Activated Date Inactivated Comments 01/12/2022 10:22 AM 01/14/2022 10:10 AM
--- OUTSIDE RECORDS SUMMARY | 2025-02-02 05:52 | XMS_ITS | Encounter Summary ---
Author Organization [facility] Address [address] [place] [address] Care Team Providers Care Fun House Operator Name Role Phone Jai Hopkins MD Primary Care Provider [phone] Encounter Details Date Type Department Care Team (Latest Contact Info) Description 10/18/2003 Outpatient Historical [facility] Cardiology Ancillary Services-[place] [address] [place] [address] Wayne Frances MD NO ADDRESS ON FILE PRECORDIAL PAIN (Primary Dx) Social History Tobacco Use Types Packs/Day Years Used Date Smoking Tobacco: Never Assessed Comments Unknown Sex and Gender Information Value Date Recorded Sex Assigned at Not on file Legal Sex Female 2:44 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
--- OUTSIDE RECORDS SUMMARY | 2025-02-02 05:52 | XMS_ITS | Encounter Summary ---
Author Organization [facility] Address [address] [place] [address] Care Team Providers Care Radio Equipment Repairer Name Role Phone Jai Hopkins MD Primary Care Provider [phone] Encounter Details Date Type Department Care Team (Late st Contact Info) Description 02/20/2015 Lab Requisition [facility] General Laboratory Services [place] [address] [place] [id number] Poornima Cheng, [facility] [address] [place] [address] Sick Social History Tobacco Use Types Packs/Day Years Used Date Smoking Tobacco: Never Assessed Comments Unknown Sex and Gender Information Value Date Recorded Sex Assigned at Not on file Legal Sex Female 2:44 AM BOOK SEWER Gender Identity Not on file Sexual Orientation Not on file documented as of this encounter Plan of Treatment Not on file documented as of this encounter Procedures Procedure Name Priority Date/Time Associated Diagnosis Comments LIPID PANEL Routine 02/20/2015 9:37 PM CDT Sick [ICD-10-CM] COMPREHENSIVE METABOLIC PANEL Routine 02/20/2015 9:37 PM CDT Sick [ICD-10-CM] documented in this encounter Results * (ABNORMAL) LIPID PANEL (02/20/2015 9:37 PM CDT) CHOLESTEROL 178 <200 mg/dL 02/20/2015 10:32 PM CDT [facility] [employer] [facility] TRIGLYCERIDE 156(H) <150 mg/dL 02/20/2015 10:[address] [facility] HDL 47 40 - 59 mg/dL 02/20/2015 10:[address] [facility] LDL CALCULATED 100(H) <100 mg/dL 02/20/2015 10:[address] [facility] NON-HDL CHOLESTEROL 131(H) <130 mg/dL 02/20/2015 10:32 PM T [facility] [employer] [facility] Blood Collection / Unknown 02/20/2015 9:37 PM CDT 02/20/2015 9:37 PM CDT Narrative [facility] [employer] [facility] - 02/20/2015 10:32 PM CDT TOTAL CHOLESTEROL mg/dL Desirable <200 Borderline high 200-239 High >=240 TRIGLYCERIDES mg/dL Normal <150 Borderline high 150-199 High 200-499 Very high >=500 HDL CHOLESTEROL mg/dL Low <40 Normal 40-59 Desirable >=60 LDL CHOLESTEROL mg/dL Optimal <100 Low risk 100-129 Borderline high 130-159 High 160-189 Very high >=190 NON HDL CHOLESTEROL mg/dL Optimal <130 Near Optimal 130-159 Borderline High 160-189 High 190-219 Very high >=220 Based on AHA/NCEP Guidelines Poornima Cheng [facility] CHEMISTRY ORDERABLES Fi nal Result [facility] [employer] [facility] CLIA # [id number] [address] [place] [address] * (ABNORMAL) COMPREHENSIVE METABOLIC PANEL (02/20/2015 9:37 PM CDT) SODIUM 135(L) 136 - 145 mmol/L 02/20/2015 10:32 PM CDT [facility] [employer] [facility] POTASSIUM 4.5 3.5 - 5.1 mmol/L 02/20/2015 10:32 PM CDT [facility] [employer] [facility] CHLORIDE 98 98 - 107 mmol/L 02/20/2015 10:32 PM [facility] [employer] [facility] CO2 21(L) 22 - 29 mmol/L 02/20/2015 10:32 PM [facility] CALCIUM 9.3 8.6 - 10.0 mg/dL 02/20/2015 10:32 PM [facility] BUN 18 6 - 20 mg/dL 02/20/2015 10:32 PM [facility] CREATININE 0.57 0.51 - 0.95 mg/dL 02/20/2015 10:32 PM [facility] GLUCOSE 95 74 - 106 mg/dL 02/20/2015 10:32 PM [facility] TOTAL PROTEIN 7.3 6.6 - 8.7 g/dL 02/20/2015 10:32 PM [facility] ALBUMIN 4.1 3.5 - 5.2 g/dL 02/20/2015 10:32 PM [facility] BILIRUBIN TOTAL 0.3 0.0 - 1.2 mg/dL 02/20/2015 10:32 PM [facility] ALKALINE PHOSPHATASE 84 35 - 104 U/L 02/20/2015 10:32 PM [facility] AST 28 10 - 35 U/L 02/20/2015 10:32 PM [facility] ALT 27 10 - 35 U/L 02/20/2015 10:32 PM [facility] GFR >60 >=60 mL/min/1.7 3 sq meter 02/20/2015 10:32 PM [facility] [employer] [facility] Comment: eGFR has not been validated for use in the elderly (> 70 years of age), women, patients with serious co-morbid conditions, or persons with extremes of body size or muscle mass and should also be interpreted with caution in patients with acute kidney failure, dialysis dependent patients, patients reporting exceptional dietary intake (e.g. vegetarian diet, high protein diets, creatine supplementation), and patients with severe liver disease. Based on National Kidney Disease Education Program If patient is , please refer to the GFR result. GFR, >60 >=60 mL/min/1.7 3 sq meter 02/20/2015 10:32 PM CDT [facility] - [place] ANION GAP 16 12 - 20 mmol/L 02/20/2015 10:32 PM CDT [facility] Blood Collection / Unknown 02/20/2015 9:37 PM CDT 02/20/2015 9:37 PM CDT Poornima Cheng MANAGER GREEN CHEMISTRY ORDERABLES Fi nal Result [facility] CLIA # [id number] [address] [id number] documented in this encounter Visit Diagnoses Diagnosis Sick Other unknown and unspecified cause of morbidity or mortality documented in this encounter Care Teams Radio Equipment Repairer Relationship Specialty Start Date End Date Jai Hopkins MD [address] [id number] PCP - General Family Practice 10/13/17 documented as of this encounter
--- OUTSIDE RECORDS SUMMARY | 2025-02-02 05:52 | XMS_ITS | Clinical Summary ---
Author Organization [facility] Address [address] [place] [address] Phone Care Team Providers Care Cost Specialist Name Role Phone Jai Hopkins MD Primary Care Provider [phone] Allergies Active Allergy Reactions Criticality Noted Date Comments Aspirin Swelling Low 07/17/2017 Aspirin Hives High 11/17/2017 Cinnamon Anaphylaxis High 08/14/2018 Kiwi Other (See Comments) 08/10/2018 Blisters in Mouth Penicillins Anaphylaxis,Hives High 07/17/2017 Penicillins Anaphylaxis High 11/17/2017 Tomato Anaphylaxis,Hives High 02/01/2020 Medications Miscellaneous Medical SupplyIndication s:Type 2 diabetes mellitus without complication, without long-term current use of insulin Dx: Type 2 Diabetes Mellitus E11.9, Rx: Glucometer, strips, lancents. QS x 3 months, Sig: Monitor fasting blood sugar daily. 1 Each 11 8 Active ondansetron (ZOFRAN) 4 mg Tablet Take 1 Tablet (4 mg) by mouth 1 time daily as needed for Nausea/Emesis 1/2 to full tablet prn for nausea. 20 Tablet 2 9 Active multivitamin with minerals (HAIR,SKIN AND NAILS ORAL) Take 1 Capsule by mouth daily. Active BIOTIN ORAL Take 1 Tablet by mouth daily. Active sertraline (ZOLOFT) 100 mg tabletIndication s:Mild episode of recurrent major depressive disorder Take 1 tablet by mouth once daily 90 Tablet 0 Active buPROPion HCL (WELLBUTRIN SR) 150 mg Sustained Release 12 hour tabletIndication s:Mild episode of recurrent major depressive disorder Take 1 tablet by mouth twice daily 180 Tablet 0 Active hydroxyzine HCL (ATARAX) 25 mg tabletIndication s:Mild episode of recurrent major depressive disorder,Insomni a, unspecified type Take 1 Tablet (25 mg) by mouth 3 times daily as needed for Itching. 60 Tablet 1 0 Active butalbital-aceta minophen-caffein e (FIORICET) 50-325-40 mg tablet Take 1 Tablet by mouth every 6 hours as needed for Migraine. 30 Tablet 2 0 Active mirtazapine (REMERON) 15 mg tablet Take by mouth daily at bedtime. Active prazosin (MINIPRESS) 2 mg capsule Take 2 mg by mouth daily at bedtime. Active clopidogreL (PLAVIX) 75 mg Tablet Take 1 tablet by mouth once daily 30 Tablet 3 1 Active traZODone (DESYREL) 100 mg tablet Take 200 mg by mouth daily at bedtime. Active gabapentin (NEURONTIN) 800 mg tablet Take 1 tablet by mouth 4 times daily 120 Tablet 5 1 Active divalproex (DEPAKOTE) 500 mg delayed release tablet Take 1 tablet by mouth twice daily 60 Tablet 5 1 Active phentermine HCl (PHENTERMINE ORAL) Take by mouth. Active diclofenac sodium (VOLTAREN) 1 % gelIndications:A rthritis of right knee,Arthritis of left knee Apply 4 Grams to affected area 4 times daily. 100 Gram 2 1 Active Active Problems Problem Noted Date Diagnosed Date Morbid obesity with BMI of 45.0-49.9, adult 11/26 Type 2 diabetes mellitus wit hout complication, without long-term current use of insulin 12/09/2017 OA (osteoarthritis) 09/10/2017 Overview (09/10/2017): Knees and ankles Hypertriglyceridemia 09/10/2017 Mild episode of recurrent major depressive disor michael 09/10/2017 Hemiplegic migraine without status migrainosus, not intractable Resolved Problems Problem Noted Date Diagnosed Date Resolved Date Referral of patient 12/12/2017 02/21/20 18 Overview (12/12/2017): Symptomatic bradycardia Symptomatic bradycardia 11/09/201711/26 Chest pressure 11/09/2017 12/09/2017 Hypotension 11/09/2017 12/09/2017 Near syncope 11/09/2017 12/09/2017 History of essential hypertension 09/10/2017 12/09/2017 Intractable hemiplegic migra ine without status migrainosus 09/10/2017 12/09/2017 Speech disturbance 8 Right sided weakness 018 Immunizations Immunization Administration Dates Next Due INFLUENZA VACCINE QUADRIVALENT 6 MOS UP PF IM Family History Medical History Relation Name Comments No Known Problems Brother Santy Heart Disease Daughter Maru Stomach Cancer Father Jacob Arthritis-osteo Maternal Aunt Breast Cancer Maternal Aunt Heart Disease Maternal Grandfather Arthritis-rheumatoid Maternal Grandmother Stomach Cancer Maternal Grandmother Heart Attack Maternal Uncle Brain Cancer Mother Bisi Lung Cancer Mother Bisi Ovarian Cancer Mother B[place] No Known Problems Paternal Aunt No Known Problems Paternal Grandfather No Known Problems Paternal Grandmother No Known Problems Paternal Uncle No Known Problems Sister NONE Healthy Son 1 Jocob Heart defect Son 2 Cristobal Relation Name Status Comments Brother Santy Daughter Maru Father Jacob Maternal Aunt Alive Maternal Grandfather Maternal Grandmother Maternal Uncle Mother Bisi Paternal Aunt Paternal Grandfather Paternal Grandmother Paternal Uncle Sister NONE Son 1 Jocob Alive Son 2 Cristobal Alive Social History Tobacco Use Types Packs/Day Years Used Date Smoking Tobacco: Never Smokeless Tobacco: Never Tobacco Cessation:Counseling Given: Yes Alcohol Use Standard Drinks/Week Comments Not Currently 0 (1 standard drink = 0.6 oz pur e alcohol) occassional Comments No Sex and Gender Information Value Date Recorded Sex Assigned at Not on file Legal Sex Female 2:44 AM PLANER SETUP OPERATOR Gender Identity Not on file Sexual Orientation Not on file Last Filed Vital Signs Vital Sign Reading Time Taken Comments Blood Pressure 136/101 09/04/2020 1:32 PM CDT Pulse 61 09/04/2020 1:32 PM CDT Temperature 36.3 C (97.4 F) 07/11/2020 10:14 AM CDT Respiratory Rate 8 07/11/2020 10:14 AM CDT Oxygen Saturation 98% 07/11/2020 10:14 AM CDT Inhaled Oxygen Concentration - - Weight 124.7 kg (275 lb) 09/04/2020 1:32 PM CDT Height 162.6 cm (5' 4 ) 09/04/2020 1:32 PM CDT Body Mass Index 47.2 09/04/2020 1:32 PM CDT Plan of Treatment Health Maintenance Due Date Last Done Comments DIABETES ANNUAL FOOT EXAM 10/27/1985 DTAP/TDAP/TD VACCINES (1 - Tdap) 10/27/1986 HEPATITIS B VACCINES (1 of 3 - 19+ 3-dose series) 10/27/1986 Preventative Visit-Managed Medicaid 10/27/1986 HPV/Cotest (21-29) 10/27/1988 CERVICAL CANCER SCREENING 10/27/1997 HPV/Cotest (30-65) 10/27/1997 PAP SMEAR 10/27/1997 COLORECTAL SCREENING 10/27/2012 Colorectal Cancer Screening 10/27/2012 FIT-DNA Q 3 years 10/27/2012 FIT/FOBT Q 1 year 10/27/2012 Flex Sig/CT Colonography Q 5 years 10/27/2012 ZOSTER VACCINE (1 of 2) 10/27/2017 BREAST CANCER SCREENING 02/15/2021 02/16/2020, 03/17 DIABETES MICROALBUMIN ANNUAL SCREEN 04/19/2021 04/19/2020, 03/19/2019 LDL CHOLESTEROL ANNUAL 04/19/2021 0, 03/19/2019, 11/09/2017, Additional history exists DIABETES ANNUAL RETINAL EXAM 12/17/2022, 04/10/2018, 04/10/2018 (Previously completed) DIABETES HBA1C Q 6 MONTHS 02/15/20232022, 03/26/2021, 04/19/2020, Additional history exists INFLUENZA VACCINE (#1) 2024 0, 06/15/2019, 06/23/2018, Additional history exists Procedures Procedure Name Priority Date/Time Associated Diagnosis Comments MICROALBUMIN/CREATIN INE RATIO, RANDOM UR Routine 04/19/2020 9:31 AM PLANER SETUP OPERATOR Type 2 diabetes mellitus without complication, without long-term current use of insulin ([facility]) LIPID PANEL Routine 04/19/2020 9:31 AM PLANER SETUP OPERATOR Hypertriglyceridemi a HEMOGLOBIN A1C Routine 04/19/2020 9:31 AM PLANER SETUP OPERATOR Type 2 diabetes mellitus without complication, without long-term current use of insulin ([facility]) MAMMO SCREEN BILAT W OR WO CAD Routine 02/16/2020 12:59 PM CDT Screening mammogram, encounter for DIABETES EYE EXAM Routine 04/10/2018 from Last 3 Months or Most Recently Relevant to Health Maintenance Results * MICROALBUMIN/CREATININE RATIO, RANDOM UR (04/19/2020 9:31 AM PLANER SETUP OPERATOR) MICROALBUMIN, URINE 1.4 No Reference Range mg/dL 04/19/2020 8:48 PM [facility] LABORATORY SERVICESDAYANA COKER CREATININE, URINE 141.8 29.0 - 226.0 mg/dL 04/19/2020 8:48 PM [facility] LABORATORY SERVICESDAYANA COKER Comment:Reference Range vari es with fluid intake and diet. MICROALBUMIN/C REAT RATIO, UR 9.9 <25.0 mg/g 04/19/2020 8:48 PM [facility] LABORATORY SERVICESDAYANA COKER Urine URINE SPECIMEN OBTAINED BY CLEAN CATCH PROCEDURE / Unknown Collection / Unknown 04/19/2020 9:31 AM PLANER SETUP OPERATOR 04/19/2020 8:07 PM PLANER SETUP OPERATOR Narrative [facility] LABORATORY SERVICESDAYANA COKER - 04/19/2020 8:48 PM PLANER SETUP OPERATOR Condition Microalbumin/Creat ratio Normal Males <17 Normal Females <25 Microalbuminuria Males 17-299 Microalbuminuria Females 25-299 Overt proteinuria >=300 us Kena Thompson MAINTENANCE TECHNICIAN 2ND SHIFT URINE ORDERABLES Final Result [facility] LABORATORY SERVICESDAYANA COKER IA# [id number] [address] [place] [address] * (ABNORMAL) HEMOGLOBIN A1C (04/19/2020 9:31 AM PLANER SETUP OPERATOR) HEMOGLOBIN A1C 6.1(H) See Comment % 04/19/2020 8:44 PM [facility] LABORATORY SERVICES-PORSHA DELEONNN EST. AVG GLUCOSE, A1C 128 mg/dL 04/19/2020 8:44 PM [facility] Blood Venipuncture / Unknown 04/19/2020 9:31 AM PLANER SETUP OPERATOR 04/19/2020 8:11 PM PLANER SETUP OPERATOR Narrative [facility]ORATORY SERVICES-POR[facility] COKER - 04/19/2020 8:44 PM PLANER SETUP OPERATOR HGB A1C INTERPRETATION NORMAL: <5.7% PRE-DIABETES: 5.7 - 6.4% DIABETES: 6.5% OR GREATER Falsely low A1C measurements can occur when: 1. Anemia and/or hemolytic anemia is present. 2. Hemoglobin variants present. 3. Renal failure. 4. Transfusion of blood product in the last 120 days. We recommend ordering a fructosamine test([id number]) to more accurately assess glycemic status if any of the above conditions are present. us Kena Thompson [facility] CHEMISTRY ORDERABLES Final Resul t [facility] LABORATORY SERVICES-PORSHA COKER IA# [id number] [address] [place] [address] * (ABNORMAL) LIPID PANEL (04/19/2020 9:31 AM PLANER SETUP OPERATOR) CHOLESTEROL 211(H) <200 mg/dL 04/19/2020 8:49 PM [facility] TRIGLYCERIDE 135 <150 mg/dL 04/19/2020 8:49 PM [facility] HDL 65(H) 40 - 59 mg/dL 04/19/2020 8:49 PM [facility] LDL CALCULATED 119(H) <100 mg/dL 04/19/2020 8:49 PM [facility] SERVICES-PORSHA COKER NON-HDL CHOLESTEROL 146(H) <130 mg/dL 04/19/2020 8:49 PM [facility] SERVICES-POR[facility] COKER Blood Venipuncture / Unknown 04/19/2020 9:31 AM PLANER SETUP OPERATOR 04/19/2020 8:10 PM PLANER SETUP OPERATOR Narrative [facility]ORATORY SERVICES-[facility] COKER - 04/19/2020 8:49 PM PLANER SETUP OPERATOR TOTAL CHOLESTEROL mg/dL Desirable <200 Borderline high 200-239 High >=240 TRIGLYCERIDES mg/dL Normal <150 Borderline high 150-199 High 200-499 Very high >=500 HDL CHOLESTEROL mg/dL Low <40 Normal 40-59 Desirable >=60 NON HDL CHOLESTEROL mg/dL Optimal <130 Near Optimal 130-159 Borderline High 160-189 Very High >=190 CALCULATED LDL mg/dL LDL <70, OPTIMAL if have Atherosclerotic cardiovascular disease (ASCVD) or intermediate or higher (>7.5%) 10 year risk of ASCVD including most adults with diabetes. LDL <100, Optimal in adult patients with low (<7.5%) 10 year ASCVD risk LDL 100-160, Suboptimal LDL >160, High LDL >190, Very high ATPIII Guidelines Reference Ranges for Lipid Panels (NCEP/AMA) . us Kena VELAZCOP CHEMISTRY ORDERABLES Final Resul t [facility]ORATORY SERVICES-[facility] COK[facility] IA# [id number] [address] [place] [address] * MAMMO SCREEN BILAT W OR WO CAD (02/16/2020 12:59 PM CDT) Anatomical Region Laterality Modality Breast Bilateral Mammography Narrative 02/17/2020 9:26 AM CDT Bilateral Mammogram Reason for Exam: [...] Assessment: Birads Category 2: Benign us Kena Jay MAINTENANCE TECHNICIAN 2ND SHIFT MAMMO ORDERABLES Final Result * DIABETES EYE EXAM (04/10/2018) us Abstract Spg Provider HEALTH MAINTENANCE Final R esult from Last 3 Months or Most Recently Relevant to Health Maintenance Insurance MEDICAID [place] RX [employer] Medicaid Advance Directives For more information, please contact: [phone] * Full Code (Latest Code Status on File) Date Activated Date Inactivated Comments 08/14/2018 6:11 AM 08/14/2018 11:56 AM * Full Code Date Activated Date Inactivated Comments 11/17/2017 2:33 PM 11/19/2017 8:33 PM * Full Code Date Activated Date Inactivated Comments 11/09/2017 8:06 PM 11/10/2017 2:13 PM Care Teams Cost Specialist Relationship Specialty Start Date End Date Jai Hopkins MD [address] [phone] PCP - General Family Practice 10/13/17
--- OUTSIDE RECORDS SUMMARY | 2025-02-02 05:52 | XMS_ITS | Data Portability ---
Author Organization [facility] Address [address] [place] [address] Care Team Providers Care Medical Donation Professional Name Role Phone DILCIA KEVIN Primary Care Provider Unavailabl e Assessment No assessment recorded. Plan of Treatment Reminders Order Date Submit Date Provider Last Modified By Organization Details Last Modified Time Details Appointments None recorded. Lab CBC [address] [facility], [address], [address], 5 07:23:32 C-reactive protein, quantitativ e, serum or plasma 2024 025 [facility] 1 [facility], [address] [address], [place], [address], 5 07:23:32 O&P (ova & parasites), stool 2024 025 [email or web address] [facility], [address] [place] [address], [address], [place], [address], 5 16:01:10 culture, stool 2024 025 [email or web address] [facility], [address] [place] [address] 248, [address], [place], [address], 5 14:29:43 C diff toxin DNA, stool 2024 025 [email or web address] [facility], [address], [address], 15:57:12 Referral None recorded. Procedures None recorded. Surgeries None recorded. Imaging XR, wrist, 3 or more view 2024 [facility] ([facility]), [address] [place], [address], 14:36:23 Medication Orders prednisone 10 mg tablet 2024 [facility] 837, [address] [place] [address], [address], 5 18:06:23 cetirizine 10 mg tablet 2024 [facility] [address]37, [address] [place] [address], [address], 5 14:06:38 Mounjaro 12.5 mg/0.5 mL subcutaneou s pen injector 2024 025 [facility] [address], [address] [place] [address], [address], 5 15:18:12 Mounjaro 15 mg/0.5 mL subcutaneou s pen injector 2024 025 [facility] [address], [address] [place] [address], [address], 5 14:06:35 triamcinolo ne acetonide 0.1 % topical cream 2024 025 [facility] 837, [address] [place], [address], 5 14:04:31 Medrol (Sy) 4 mg tablets in a dose pack 2024 025 [facility] 837, [address] [facility] [place], [address], 5 15:31:26 clindamycin HCl 300 mg capsule 2024 025 [facility] 837, [address] [facility] [place], [address], 5 05:01:19 betamethaso ne sodium phos 6 mg/mL in sterile water injection solution 2024 025 [facility] Not available 15:13:46 ondansetron 4 mg disintegrat ing tablet 2024 025 [facility] 837, [address] [facility] [place], [address], 5 14:34:17 Mounjaro 7.5 mg/0.5 mL subcutaneou s pen injector 2024 025 [facility] 837, [address] [facility] [place], [address], 5 09:31:24 Mounjaro 10 mg/0.5 mL subcutaneou s pen injector 2024 025 [facility] 837, [address] [facility] [place], [address], 5 15:13:04 Patient TargetsNo targets recorded. Patient Instructions Encounter Date Encounter Id Patient Instructions Last Modified By Organization Details Last Modified Time 10/24/2024 [id number] We discussed ER due to the dizziness and abnormal heart beats Not available 10/24/2024 23:50:00 01/24/2025 [id number] wear wrist splin t and start prednisone. Discussed wearing that to minimize inflammation Not available 01/25/2025 09:45:02 No obvious fracture- will send for radiology read Not available 01/25/2025 10:00:57 Reason for Referral None Reported. Results Created Date Observation Date Name Description Value Unit Range Abnormal Flag Note LastModifiedBy Organization Detail LastModifiedTime 12/24/1912/29/2024 SALMO DUSTY /SHIG JETT CULT, CAMPY EIA AND SHIGA TOXIN W/RFL E. COLI O157 CULT campylobacte r spp. Ag,EIA SEE NOTE CAMPY LOBAC TER SPP. AG,EI A Micro Numbe r: [id number] Test Statu s: Final Speci men Sourc e: Stool Speci men Quali ty: Adequ ate Campy Ag Resul t: Not Detec karrie Refer ence Range : Not Detec karrie Not Available [address] [address] [place], [address], 12/29/2024 16:01:12/24/19 25 12/29/2024 SALMO DUSTY /SHIG JETT CULT, CAMPY EIA AND SHIGA TOXIN W/RFL E. COLI O157 CULT shiga toxins, EIA w/rfl to E.coli O157 culture SEE NOTE SHIGA TOXIN S, EIA W/RFL TO E.COL I O157 CULTU RE Micro Numbe r: [id number] Test Statu s: Final Speci men Sourc e: Stool Speci men Quali ty: Adequ ate Shiga Toxin : Not Detec karrie Refer ence Range : Not Detec karrie Not Available [address], [address], 12/29/2024 16:01:12/24/19 25 12/29/2024 SALMO DSUTY /SHIG JETT CULT, CAMPY EIA AND SHIGA TOXIN W/RFL E. COLI O157 CULT salmonella and shigella, culture SEE NOTE SALMO DUSTY AND SHIGE LLA, CULTU RE Micro Numbe r: [id number] Test Statu s: Final Speci men Sourc e: Stool Speci men Quali ty: Adequ ate Resul t: No Salmo dusty or Shige lla isola karrie Not Available [address] [address] [place], [address], 12/29/2024 16:01:12/24/1912/29/2024 OVA AND REJI ITES, CONC AND PERM SMEAR ova and parasites, conc and perm smear SEE NOTE OVA AND REJI ITES, CONC AND PERM SMEAR Micro Numbe r: [id number] Test Statu s: Final Speci men Sourc e: Stool Speci men Quali ty: Adequ ate KIRK NTRAT ION 1: No ova or reji ites seen TRICH NAKITA 1: No ova or reji ites seen Routi ne Ova and Reji ite exam may not detec t some reji ites that occas ional ly cause diarr heal illne ss. Crypt ospor idium Antig en and/o r Cyclo spora and Isosp ora Exam may be order ed to detec t these reji ites. One negat mart sampl e does not neces saril y rule out the prese nce of a reji itic infec tion. For addit ional infor samuel acosta refer to https ://ed ucati on.MOBi-LEARN/f aq/FA Q203 (This link is being provi ded for infor juan muro/ educstacia forrester purpo ses only. ) Not Available [facility] [address] [place], [address], 12/29/2024 16:01:10 01/27/2001/24/2025 XR, wrist , 3 or more view No observ ation record ed. [facility] [address] [place], [address], 01/26/2025 15:17:52 Result Notes None recorded. Problems Name Problem SNOMED Code Status Onset Date Resolution Date Notes Provider Name and Address Organization Details Recorded Time Cholecys tectomy Completed 199707/12/2024 Cholecyst ectomy; Date: 8 8:51AM by Terese Landrum LPN, Office Visit; Promoted; acuity set as *; Removal Reason: resolved DAYNE SANTIAGO [facility] 5 20:09:52 History of hysterec hong [id number] Completed 200207/12/2024 Hysterect wendi; Abdominal ; BSO. Leiomyoma ta.; Date: 2002; 8 8:51AM by Terese Landrum LPN, Office Visit; Promoted; acuity set as *; Removal Reason: resolved DAYNE rubio, [facility] 5 20:10:08 Hemorrho ids 32841097 Active 2007 Hemorrhoi ds; External, [place] py 2004.; 8 8:51AM by Terese Landrum LPN, Office Visit; Promoted; acuity set as *; DAYNE SANTIAGO joanne [facility], Lnida.L.CS[facility]ah 5 20:10:00 section Completed 200706/15/2024 Section; 1987, 1992, 1995.; 8 8:51AM by Terese Landrum LPN, Office Visit; Promoted; acuity set as *; DAYNE COLEYFLORIAN rubio, [facility] 5 07:49:55 Thyroid nodule 310091823 Active 2022 DAYNE VIANCAFLORIAN rubio, [facility] 5 20:10:18 Hemipleg ic migraine 84148127 Active 2023 DAYNE VIANCAFLORIAN rubio [facility] 5 20:09:56 Acute upper respirat ory infectio n 53076498 Completed 202406/15/2024 Removal Reason: resolved DAYNE SANTIAGO joanne, [facility] 5 07:49:49 Diabetes mellitus 31638553 Active 2024 DAYNE SANTIAGO joanne, [facility] 5 09:42:36 Problem Notes None recorded. Procedures Surgical History Date Name Laterality Status Provider Name and Address Organization Details Recorded Time 05/25/19 25 jr skin tag removal completed DILCIA KEVIN PA-C [address] [place], [address], [facility] 05/30/2024 11:59:51 07/18/19 24 bone density scan completed DAYNE [facility] 07/22/2023 16:10:57 04/02/20 23 [facility] 04/04/2023 16:30:27 03/31/20 23 Most Recent Mammogram completed DILCIA KEVIN PA-C [address] [place], [place], [address] [place] [address], [facility] 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 03/06/2023 16:46:59 11/27/19 22 screening for malignant neoplasm of colon completed DILCIA KEVIN PA-C [address] [place], [address], [facility] 03/06/2023 10:51:04 06/29/19 03 Hysterectomy completed DILCIA KEVIN PA-C [address] [place], [address], [facility] 07/03/2023 09:55:04 Imaging Results None recorded. Procedure Notes None recorded. Medical Equipment None Reported. Allergies Allergen ID Allergen Name Allergen Category Reaction Reaction Severity Criticality Documentation Date Start Date Code Code System Note Provider Name and Address Organization Details Recorded Time 22960 Product containin g penicilli n (product) medicatio n abdominal pain Not available Not available 11/23/2022 14074 9231 SNOMED React ion: Laryn geal spasm ; Comme nt: Recor ded 08/12 8:51A M by aJclyn Zhao on, [employer] REPORTER, Offic e Visit ; Promo karrie; Signi bobbi ce: *; ; Not Available [facility] 3 02:28:43 98319 Cephalosp cara (substanc e) medicatio n hives Not available Not available 11/23/2022 95708 7003 SNOMED React ion: Hives , Vomit ing; Comme nt: Recor ded 08/12 8:51A M by Jaclyn Zhao on, MERCANTILE REPORTER, Offic e Visit ; Promo karrie; Signi ficlibertad ce: *; ; Not Available [facility] 3 02:28:43 18828 aspirin medicatio n anaphylax is Not available [facility] 08/07/2023 1191 RxNorm [facility] 4 09:31:58 Medications Name Sig Start Date Stop Date Status Note LastModified by Organization Details LastModified Time bupropion HCl SR 150 mg tablet,12 hr sustained -release TAKE ONE TABLET BY MOUTH TWICE DAILY @ 9AM & 5PM 03/06 completed Not Available Not Available Not Available prednison e 10 mg tablet TAKE 2 TABLETS BY MOUTH ONCE DAILY FOR 4 DAYS AND 1 ONCE DAILY FOR 4 DAYS active Not Available Not Available No t Available ginseng 100 mg capsule Take 1 capsule twice a day by oral route. 08/06 completed Not Available Not Available Not Available gabapenti n 600 mg tablet TAKE 1 TABLET BY MOUTH THREE TIMES DAILY 06/06 completed Not Available Not Available Not Available doxycycli ne hyclate 100 mg capsule TAKE 1 CAPSULE BY MOUTH TWICE DAILY FOR 10 DAYS 05/13 completed Not Available Not Available Not Available clindamyc in HCl 300 mg capsule Take 1 capsule 3 times a day by oral route for 7 days. 01/06 completed Not Available Not Available Not Available cetirizin e 10 mg tablet TAKE 1 TABLET BY MOUTH ONCE DAILY active Not Available Not Available No t Available azithromy sheree 250 mg tablet TAKE 2 TABLETS BY MOUTH ON DAY 1, AND THEN TAKE 1 TABLET BY MOUTH ONCE A DAY ON DAY 2 THROUGH DAY 5 05/25 completed Not Available Not Available Not Available ibuprofen 800 mg tablet TAKE 1 TABLET BY MOUTH EVERY 6 TO 8 HOURS NEEDED FOR PAIN active Not Available Not Available No t Available tizanidin e 4 mg tablet TAKE 1 TABLET BY MOUTH EVERY 6 HOURS NEEDED FOR SPASM 05/06 completed Not Available Not Available Not Available fluconazo le 150 mg tablet TAKE ONE TABLET BY MOUTH A ONE-TIME DOSE 05/06 completed Not Available Not Available Not Available ondansetr on HCl 4 mg tablet TAKE ONE TABLET BY MOUTH ONCE DAILY NEEDED (PER DOCTOR'S ORDER) (VIAL) 05/25 completed Not Available Not Available Not Available sertralin e 100 mg tablet TAKE 1 (ONE ) TABLETS BY MOUTH ONCE DAILY active Not Available Not Available No t Available clopidogr el 75 mg tablet TAKE ONE TABLET BY MOUTH DAILY AT 9AM 12/29 completed Not Available Not Available Not Available divalproe x 500 mg tablet,de layed release TAKE ONE TABLET BY MOUTH TWICE DAILY @ 9AM & 5PM (Needs appointm ent for refills) 06/06 completed Not Available Not Available Not Available tramadol 50 mg tablet every six hours, as needed 03/03 completed er; Recorded 08/10/19 08 1:12PM by Juma Mora CMA, Office Visit; Not Available Not Available Not Available triamcino lone acetonide 0.1 % topical cream APPLY A THIN LAYER TO THE AFFECTED AREA TWICE DAILY active Not Available Not Available No t Available ketorolac 30 mg/mL (1 mL) injection solution Inject 1 mL every 6 hours by intramus cular route for 1 day. 01/19 completed Not Available Not Available Not Available betametha sone acetate and sodium phos 6 mg/mL suspensio n for injection Take 6 mg by injectio n route for 1 day. 01/19 completed Not Available Not Available Not Available oxycodone -acetamin ophen 5 mg-325 mg tablet TAKE 1 TABLET BY MOUTH EVERY 6 TO 8 HOURS NEEDED FOR PAIN 05/25 completed Not Available Not Available Not Available alprazola m 0.25 mg tablet TAKE 1 TABLET BY MOUTH TWICE DAILY FOR ANXIETY active Not Available Not Available No t Available famotidin e 20 mg tablet 03/06 completed Not Available Not Available Not Available gabapenti n 800 mg tablet TAKE ONE TABLET BY MOUTH FOUR TIMES DAILY @ 9AM-1PM- 5PM-9PM 06/06 completed Not Available Not Available Not Available linezolid 600 mg tablet TAKE 1 TABLET BY MOUTH TWICE DAILY FOR 5 DAYS 03/06 completed Not Available Not Available Not Available trazodone 100 mg tablet TAKE TWO TABLETS BY MOUTH DAILY AT 9PM AT BEDTIME 05/13 completed Not Available Not Available Not Available gabapenti n 300 mg capsule TAKE 1 CAPSULE BY MOUTH THREE TIMES DAILY 07/02 completed Not Available Not Available Not Available hydroxyzi ne HCl 25 mg tablet Take 1 tablet 3 times a day by oral route as needed. 06/06 completed Not Available Not Available Not Available methylpre dnisolone 4 mg tablets in a dose pack USE DIRECTED 01/16 completed Not Available Not Available Not Available albuterol sulfate HFA 90 mcg/actua tion aerosol inhaler INHALE 2 PUFFS BY MOUTH EVERY 4 HOURS active Not Available Not Available No t Available ondansetr on 4 mg disintegr ating tablet DISSOLVE 1 TABLET IN MOUTH THREE TIMES DAILY NEEDED FOR NAUSEA active Not Available Not Available No t Available sertralin e 50 mg tablet TAKE 1 TABLET BY MOUTH ONCE DAILY active Not Available Not Available No t Available oxycodone 5 mg tablet 03/06 completed Not Available Not Available Not Available Triamtere ne W/Hctz 37.5 mg-25 mg tablet daily 03/03 completed Recorded 08/13/19 08 9:41AM by Lincoln Kevin MD, Office Visit; Refill Quantity : 0; Not Available Not Available Not Available bupropion HCl XL 300 mg 24 hr tablet, extended release TAKE 1 TABLET BY MOUTH twice DAILY 06/06 completed Not Available Not Available Not Available duloxetin e 60 mg capsule,d elayed release TAKE 1 CAPSULE BY MOUTH ONCE DAILY IN THE MORNING 03/06 completed Not Available Not Available Not Available chlorhexi dine gluconate 0.12 % mouthwash RINSE WITH 15ML FOR 30 SECONDS AND SPIT, USE TWICE DAILY AFTER BRUSHING AND FLOSSING . START 2 DAYS AFTER SURGERY 05/25 completed Not Available Not Available Not Available divalproe x 1 qd 03/03 completed Not Available Not Available Not Available B-50 Complex 1 qd 01/16 completed Not Available Not Available Not Available Centrum Silver 50plus 1qd 01/16 completed Not Available Not Available Not Available Methylpre dnisolone (Sy) 03/03 completed er; Recorded 08/10/19 08 1:13PM by Juma Mora CMA, Office Visit; Not Available Not Available Not Available gabapenti n 1 tid 03/03 completed Not Available Not Available Not Available Energy Formula 1 qd 01/16 completed Not Available Not Available Not Available Ginkoba 1 qd 08/06 completed Not Available Not Available Not Available diclofena c 1 % topical gel APPLY 4 GRAMS TO AFFECTED AREA FOUR TIMES DAILY active Not Available Not Available No t Available Body, Hair, Skin and Nails 1 qd 01/16 completed Not Available Not Available Not Available vitamin E (dl, acetate) 180 mg (400 unit) capsule Take 1 capsule every day by oral route. active Not Available Not Available No t Available Vitamin D3 125 mcg (5,000 unit) tablet Take 2 tablets every day by oral route. active Not Available Not Available No t Available Probiotic 1 qd 01/16 completed Not Available Not Available Not Available biotin 1 mg capsule Take 1000 capsules every day by oral route. active Not Available Not Available No t Available betametha sone sodium phos 6 mg/mL in sterile water injection solution Take 6 mg every day by injectio n route for 1 day. 01/16 completed Not Available Not Available Not Available Emgality Pen 120 mg/mL subcutane ous pen injector INJECT one pen (120mg) UNDER THE SKIN ONCE monthly 09/28 completed Not Available Not Available Not Available Aimovig Autoinjec tor 140 mg/mL subcutane ous auto-inje ctor active Not Available Not Available Not Available Vyepti 100 mg/mL intraveno us solution Administ er 100 MG intraven ously EVERY 90 DAYS active Not Available Not Available No t Available Nurtec ODT 75 mg disintegr ating tablet Dissolve one tablet by mouth once as needed for migraine headache . Max of 1 tablet in 24 hours. active Not Available Not Available No t Available Ozempic 1 mg/dose (4 mg/3 mL) subcutane ous pen injector INJECT 1MG SUBCUTAN EOUSLY ONCE A WEEK 05/25 completed Not Available Not Available Not Available Ozempic 2 mg/dose (8 mg/3 mL) subcutane ous pen injector INJECT 2 MG SUBCUTAN EOUSLY EVERY WEEK 07/31 completed Not Available Not Available Not Available Mounjaro 7.5 mg/0.5 mL subcutane ous pen injector INJECT 7.5MG SUB-Q ONCE WEEKLY active Not Available Not Available No t Available Mounjaro 5 mg/0.5 mL subcutane ous pen injector INJECT 5 MG SUBCUTAN EOUSLY ONCE PER WEEK 12/09 completed Not Available Not Available Not Available Mounjaro 15 mg/0.5 mL subcutane ous pen injector INJECT 15MG SUB-Q ONCE WEEKLY active Not Available Not Available No t Available Mounjaro 10 mg/0.5 mL subcutane ous pen injector INJECT 10MG SUBCUTAN EOUSLY ONCE WEEKLY 01/16 completed Not Available Not Available Not Available Mounjaro 12.5 mg/0.5 mL subcutane ous pen injector INJECT 12.5MG SUB-Q ONCE WEEKLY active Not Available Not Available No t Available Ozempic 0.25 mg or 0.5 mg (2 mg/3 mL) subcutane ous pen injector Inject 0.5 mg every week by subcutan eous route for 30 days. 12/25 completed Not Available Not Available Not Available ashwagand garcia extract 1 qd 01/16 completed Not Available Not Available Not Available turmeric 125 mg-pro root 6 mg-black pepper 50 mcg chewable tablet Take 1 tablet every day by oral route. active Not Available Not Available No t Available Vitals Date Recorded Body mass index (BMI) Body weight Provider Name and Address Organization Details Last Updated DateTime 09/28/2024 46.6 kg/m2 456815.86 g DILCIA KEVIN PA-C [address] [place] [address], [address], [place] - [facility], [facility]. 09/28/2024 11:17:04 Date Recorded Body height Oxygen saturation Oxygen saturation in Arterial blood by Pulse oximetry Heart rate Respiratory rate Body temperature Systolic And Diastolic Provider Name and Address Organization Details Last Updated DateTime 5 165.1 cm 97 % 97 % 78 /min 18 /min 97 [degF] 140/80 mm[Hg] DAYNE MARTINFLORIAN [facility] 5 10:47:08 Date Recorded Systolic And Diastolic Systolic And Diastolic Provider Name and Address Organization Details Last Updated DateTime 10/24/2024 148/84 mm[Hg] 140/80 mm[Hg] OMIDMarlon KAPLAN [facility] 10/24/2024 17:24:52 Date Recorded Body height Body mass index (BMI) Body weight Body temperature Heart rate Oxygen saturation Oxygen saturation in Arterial blood by Pulse oximetry Systolic And Diastolic Provider Name and Address Organization Details Last Updated DateTime 5 165.1 cm 45.9 kg/m2 564413. 49 g 98.4 [degF] 56 /min 96 % 96 % 152/76 mm[Hg] Kellen Leon [facility] 5 16:30:09 Date Recorded Body height Body mass index (BMI) Body weight Respiratory rate Oxygen saturation Oxygen saturation in Arterial blood by Pulse oximetry Heart rate Body temperature Systolic And Diastolic Provider Name and Address Organization Details Last Updated DateTime 5 165.1 cm 45.1 kg/m2 385847. 53 g 17 /min 98 % 98 % 72 /min 98 [degF] 142/80 mm[Hg] OMID [facility] 5 14:16:38 Date Recorded Body height Body mass index (BMI) Body weight Oxygen saturation Oxygen saturation in Arterial blood by Pulse oximetry Respiratory rate Heart rate Body temperature Systolic And Diastolic Provider Name and Address Organization Details Last Updated DateTime 5 165.1 cm 44.8 kg/m2 259138. 35 g 99 % 99 % 18 /min 70 /min 97.9 [degF] 138/80 mm[Hg] DAYNE MARTINFLORIAN [facility] 5 13:50:00 Date Recorded Body height Body mass index (BMI) Body weight Oxygen saturation Oxygen saturation in Arterial blood by Pulse oximetry Heart rate Respiratory rate Body temperature Systolic And Diastolic Provider Name and Address Organization Details Last Updated DateTime 5 165.1 cm 43.8 kg/m2 166694. 79 g 96 % 96 % 84 /min 16 /min 97.6 [degF] 150/80 mm[Hg] Veronique Granados [facility] 5 17:34:17 Social History Question Answer Notes LastModified by Organizat ion Details LastModified Time Tobacco Smoking Status Never Smoker Kellen Leon joanne [facility] 10/24/2024 16:25:45 What Was The Date Of Your Most Recent Tobacco Screening? 01/24/2025 [email or web address] Information not available 01/24/2025 Sex: Unknown Functional Status Question Answer Note LastModified by Organization D etails LastModified Time Do you or have you ever used any other forms of tobacco or nicotine? No Information not available 12/14/2024 Do you or have you ever used any nicotine-free cigarettes, vape, or chewing tobacco? No [email or web address] Information not available 12/14/2024 Mental Status None recorded. Family History Nothing Reported. Medical History No medical history recorded. Gynecological History Statement/Question Response Menses Monthly N If Post Menopausal, Age at Menopause 37 Most Recent Mammogram 03/31/2023 Obstetrics History GPAL:G 0 P 0 0 0 0 Immunizations Vaccine Type Date Status Note Provider Nam e and Address Organization Details Recorded Time Influenza, split virus, quadrivalent, PF 02/01/2020 completed DILCIA KEVIN PA-C [address] [place], [address], [facility] 07/03/2023 09:57:43 Past Encounters Encounter ID Performer Location Encounter Start Date Encounter Closed Date Diagnosis/Indication Diagnosis SNOMED-CT Code Diagnosis ICD10 Code Diagnosis IMO Codes Diagnosis Note [id number] DILCIA KEVIN PA-C [facility] ([facility]) [address] [place] [address] 03/06/2023 10:05:15 03/06/2023 13:46:07 Chronic headache disorder 880763381 G44.89 nuetrec samples given. Fatigue 13160124 R53.83 Pain of ri ght knee joint 9249386229 75538 M25.561 Depressive disorder 3548 9007 F32.A sees [facility] Screening for malignant neoplasm of breast 680290631 Z12.39 Vaginitis 92550689 N76.0 Thyroid nodule 173063026 E04.1 [id number] DILCIA KEVIN PA-C [facility] ([facility]) [address] [place] [phone] 03/13/2023 11:18:22 03/13/2023 18:56:40 [id number] DILCIA KEVIN PA-C [facility] ([facility]) [address] [place] [phone] 05/06/2023 14:39:08 05/26/2023 06:52:51 Hemiplegic migraine 22496780 G43.409 decrease depakote to 500 mg qdTry to get Aimovig approved for her she has tried and failed mulptle meds and feels that Nutrec has helped her more than any other meds. Chronic pain 07576463 G8 9.29 pt is on alot of meds she is not sure are helping. Will start to GDR her meds and see improves her polyppharm cy SE and drug to drug interactio n [id number] DILCIA KEVIN PA[facility]C [facility] C[facility] ([facility]) [address] [place] [address] 50463-104 5 06/06/2023 08:57:54 06/06/2023 17:02:21 Migraine [id number] G43.909 nutrec samples given. will give the Aimivig one more month or 3 shots total before abandoning to something else. Morbid obesity 119800963 E66.01 [id number] DILCIA KEVIN PA-C [facility] ([facility]) [address] [place] [address] 93426-356 5 07/03/2023 09:25:49 07/03/2023 17:40:39 Adult health examination 580027989 Z00.00 off gabapentin wants to taper off the trazadone. Menopausal symptom 50405 002 E89.41 Hemiplegic migraine 5929 2005 G43.[address] Márquez next week. Hyperglycemia 32449637 R 73.9 ozempic pen sample Diabetes mellitus 025711 09 E11.9 A1C was 6.2 today. discussed how to start pen. how it works and the SE associated with it. [id number] DILCIA KEVIN PA-C [facility] ([facility]) [address] [place] [address] [phone] 5 08/07/2023 09:21:59 08/07/2023 16:26:56 Hemiplegic migraine 36508044 G43.409 Prediabetes 618184411 R7 3.03 stay on the current dose of ozempic. will recheck A1C and wt in 2 months. [id number] DILCIA KEVIN PA-C [facility] ([facility]) [address] [place] [address] 73066-631 5 09/09/2023 11:40:23 09/09/2023 14:17:03 Pain of left shoulder joint [id number] 7808973 M25.512 ice. rest. note for work to be off Mon-Fri this week. Pain of le ft knee joint 9082026046 21565 M25.352 [id number] DILCIA KEVIN PA-C [facility] ([facility]) [address] [place] [address] [phone] 5 2023 14:31:27 2023 17:29:56 Diabetes mellitus 72631672 E11.9 A1C was 6.2 today. discussed how to start pen. how it works and the SE associated with it. [id number] DILCIA KEVIN PA-C [facility] ([facility]) [address] [place] [address] [phone] 5 12/26/2023 09:29:00 12/30/2023 23:01:14 Migraine 20771394 G43.909 Having GARCIA for >1 week. MRI was in august 19 and showed some T2 densities consistant with migraine ANDRZEJ advised her to call her Neurologis t since she has had a worsening of her migraines. May need to stop the Amovig and try something different. Adult [facility] th examination 042326019 Z00.00 off most of her meds now. [id number] AGGIE RAMIREZ APRN [facility] ([facility]) [address] [place] [address] [phone] 5 01/17/2024 14:15:40 01/17/2024 15:16:51 Fever 138070956 R50.9 Viral syndrome 862871230 B34.9 [id number] DILCIA KEVIN PA-C [facility] ([facility]) [address] [place] [address] [phone] 5 01/21/2024 14:36:32 02/04/2024 21:18:38 Acute bronchitis 69364650 J20.9 [id number] DICLIA KEVIN PA-C [facility] ([facility]) [address] [place] [address] [phone] 5 05/13/2024 11:45:16 05/13/2024 12:59:47 Fever 569853474 R50.9 Pain of ri ght knee joint 9139178340 73490 M25.561 DMV form filled out Generalize d anxiety disorder 28459836 F41.1 Diabetes mellitus 139896 09 E11.9 A1C was 6.2 today. discussed how to start pen. how it works and the SE associated with it. [id number] DILCIA KEVIN PA-C [facility] ([facility]) [address] [place] [address] [phone] 5 05/25/2024 15:08:56 05/31/2024 08:14:59 Multiple skin tags 817542462 L91.8 [id number] DILCIA KEVIN PA-C [facility] ([facility]) [address] [place] [address] [phone] 5 07/27/2024 15:55:02 07/27/2024 17:23:25 Diabetes mellitus 79645922 E11.9 A1C was 6.2 today. discussed how to start pen. how it works and the SE associated with it.will try switching from Ozempic to Mounjaro for better control of BS and appetite.I explained how GLP1 help to lower sugar and lose weight. We discussed possible SE of nausea, vomiting, bloating and constipati on. Showed how to use self injection pen. All questions were answered to satisfacti on Allergic rhinitis 592124 04 J30.9 [id number] DILCIA KEVIN PA-C [facility] ([facility]) [address] [place] [address] [phone] 5 09/28/2024 10:38:27 09/28/2024 11:40:24 Diabetes mellitus 39989141 E11.9 Explained we need to keep titrating her up to the 10 and even 15 mg dose and give it 6 months before deciding if it is a failure. if she does not loss weight at those doses then will encouraged her to talk with gastric bypass surgeon Body mass index 40+ - severely obese 199253251 E66.01 92918164 [id number] AGGIE RAMIREZ APRN [facility] ([facility]) [address] [place] [address] [phone] 5 10/24/2024 15:40:25 10/27/2024 09:36:10 Dizziness 040530743 R42 25077 [id number] PIPER KIRKLAND [facility] ([facility]) [address] [place], [place] 124945-204 5 12/14/2024 14:02:06 12/14/2024 14:39:50 Diarrhea 38200238 R19.7 91257185 . Nausea 413882279 R11.0 77609 Increase po fluids as tolerated. Use Zofran as prescribed . RTC with any new or worsening symptoms. [id number] DILCIA KEVIN PA-C [facility] ([facility]) [address] [place] [address] [phone] 5 12/23/2024 13:24:56 12/23/2024 14:13:07 Atopic dermatitis 08743316 L20.9 8646335 folliculit is vs contact vs insectreas sured pt i have a low level of suspicions for joint sepsis. to return to clinic or er if joint gets red hot, swollen Diabetes mellitus 455719 09 E11.9 Allergic rhinitis 623296 04 J30.9 [id number] AGGIE RAMIREZ APRN [facility] ([facility]) [address] [place] [address] [phone] 5 01/24/2025 17:27:40 01/27/2025 16:01:13 Pain of right wrist 9203778064 93419 M25.531 171513 Right late ral elbow tendinopathy 6248814973 89291 M77.11 [id number] Health Concerns Section Related Observation LastModified by Organization Detai ls LastModified Time None Recorded Concern Status LastModified by Organization Details LastModified Time None Recorded Advance Directives Directive None Recorded Payers Insurance Date Sequence Insurance Name Policy Number Policy Garces Covered Member ID Garces Member ID Guarantor Name 01/27/2025 2 [place] Nellie Forrester Neitzel [id number] Nellie L Neitzel 01/27/2025 [place] [facility]ITUTIONAL ) Nellie L Neitzel [id number] Nellie L Neitzel 01/27/2025 1 [employer]ET[employer] (MEDICARE REPLACEMENT/AD VANTAGE - HMO) [id number] Nellie L Neitzel [id number] Nellie L Neitzel 09/28/2024 1 [place]MEDICARE REPLACEMENT HMO) [id number] Nellie L Neitzel [id number] Nellie L Neitzel 10/04/2024 3 AETNA - PRIME (MEDICARE REPLACEMENT/AD VANTAGE - HMO) [id number] Nellie L Neitzel [id number] Nellie L Neitzel 10/04/2024 2 [employer]ET[employer] (MEDICARE REPLACEMENT/AD VANTAGE - PPO) [id number] O Nellie L Neitzel [id number] Nellie L Neitzel Notes Date Note Type Note Provider Name and Address Organization Details Recorded Time 09/28/2024 text/html ObesityReported by PatientHPIFor diagnosis summary, patient reportsage at start of weight gain 20-30. For comorbidities, patient reportsdepression. For lifestyle changes, patient reportsmotivated to continue lifestyle changes,motivated to make lifestyle changes,losing weight, andexercising more. For nutrition, patient reportslow-fat diet yes,low-carbohydrate diet yes,balanced low-calorie diet yes,high-protein diet yes,very low calorie diet yes, andintermittent fasting yes. For physical activity, patient [id number] minutes of moderate exercise per weekandweekly screen time (electronics) : 14 hours. For medication education, patient reportsverbalizes understanding of potential medication side effects yes,verbalizes understanding of medication administration yes, andverbalizes understanding of role of diet as primary therapy yes. THE MOUNJARO IS NOT HELPING AT ALL DILCIA KEVIN PA-C [address] [place], [address], [facility] 09/28/2024 11:23:14 10/24/2024 text/html walk in ptPt is dizzy, nauseous and no appetite. PT had cataract surgery on Fri. She states when she gets uo she feels like she is going to pass out by seeing black spots every time. AGGIE RAMIREZ, FARM TRUCK DRIVER [address] [place], [address], [facility], LSarahLSarahC. 10/24/2024 23:50:22 12/14/2024 text/html ROS as noted in the HPI walk-in; PCP Dilcia Kevin Patient c/o lower abdominal pain described as walk in. She's been nauseous and had diarrhea. Symptoms started a week ago, getting worse. Patient states that she has used some immodium with no improvement. Denies any known exposure to illness but states that she has a low immune system and gets everything . ZACARIAS REYES, PIPER [address] [place], [address], [facility] 12/14/2024 14:35:17 12/23/2024 text/html Rash/Skin LesionReported by PatientHPIFor quality, patient reportsitchybut reportsmacules. For location, patient reportship,leg,knee,an kle, andfoot. For severity, patient reportsmoderate. For duration, patient reportshas noted for __and1 days. For timing, patient reportsabruptandconsta nt. For context, patient reportsno new detergents or skin products,no one else with similar rash,not scratching, andnew medications being taken: . For alleviating factors, patient reportsnone. For aggravating factors, patient reportsnone. pt states this is how her knee sepsis started in the past. knee more painful today but no redness or swelling DILCIA KEVIN PA-C [address] [place], [address], HERMELINDA Garcia [facility], [place] 12/23/2024 17:20:15 01/24/2025 text/html Joint PainReport ed by Patient FeverReported by Patient walk in patientpatient is here today for right wrist pain that started a couple of days ago without injury, patient said that the pain radiates up to her elbow.Patient has had a fever of 101.3 and vomiting that started yesterday AGGIE RAMIREZ APRN [address] [place], [address], HERMELINDA Garcia [facility], [place] 01/25/2025 10:01:02 OBGyn Episode No OBEpisode recorded.
--- OUTSIDE RECORDS SUMMARY | 2025-02-02 05:52 | XMS_ITS | Encounter Summary ---
Author Organization [facility] Address [address] [place] [address] Care Team Providers Care Programming Specialist Name Role Phone Jai Hopkins MD Primary Care Provider [phone] Encounter Details Date Type Department Care Team (Latest Contact Info) Description 10/05/2003 Outpatient Historical [facility] Cardiology- [place] [address] [place] [address] Nba Girard MD [address] [facility] [address] [place] [address] HYPERTENSION NOS (Primary Dx); Pure hypercholesterolem; PRECORDIAL PAIN; RESPIRATORY ABNORM NEC Social History Tobacco Use Types Packs/Day Years Used Date Smoking Tobacco: Never Assessed Comments Unknown Sex and Gender Information Value Date Recorded Sex Assigned at Not on file Legal 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
--- OUTSIDE RECORDS SUMMARY | 2025-02-02 05:52 | XMS_ITS | Encounter Summary ---
Author Organization [facility] Address [address] [place] [address] Care Team Providers Care Joinery Setter Out Name Role Phone Jai Hopkins MD Primary Care Provider [phone] Encounter Details Date Type Department Care Team (Late st Contact Info) Description 11/25/2016 Lab Requisition [facility] General Laboratory Services [place] [address] [place] [address] Bryan Jonas, DO NO ADDRESS ON FILE Social History Tobacco Use Types Packs/Day Years Used Date Smoking Tobacco: Never Assessed Comments Unknown Sex and Gender Information Value Date Recorded Sex Assigned at Not on file 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 Gender Identity Not on file Sexual Orientation Not on file documented as of this encounter Plan of Treatment Not on file documented as of this encounter Procedures Procedure Name Priority Date/Time Associated Diagnosis Comments CBC WITH DIFFERENTIAL Routine 11/25/2016 7:05 PM CDT SEDIMENTATION RATE Routine 11/25/2016 7: 05 PM CDT RHEUMATOID FACTOR Routine 11/25/2016 7:0 5 PM CDT TSH Routine 11/25/2016 7:05 PM CDT COMPREHENSIVE METABOLIC PANEL Routine 11/25/2016 7:05 PM CDT documented in this encounter Results * TSH (11/25/2016 7:05 PM CDT) TSH 1.66 0.27 - 4.20 uIU/mL 11/25/2016 11:23 PM CDT [facility] Blood Venipuncture / Unknown 11/25/2016 7:05 PM CDT 11/25/2016 10:33 PM CDT us Bryan Jonas DO CHEMISTRY ORDERABLES Final Resu lt [facility] CLIA # [id number] [address] [place] [address] 345858 * RHEUMATOID FACTOR (11/25/2016 7:05 PM CDT) RHEUMATOID FACTOR <10 <=15 IU/mL 11/26/2016 9:16 PM CDT [facility] Blood Venipuncture / Unknown 11/25/2016 7:05 PM CDT 11/25/2016 9:59 PM CDT us Bryan Jonas DO CHEMISTRY ORDERABLES Final Resu lt Performing Organization Address City/[facility]/ZIP Co de Phone Number [facility] CLIA# [id number] [address] [place] [address] * SEDIMENTATION RATE (11/25/2016 7:05 PM CDT) Pathologist [facility] ESR (SEDIMENTATION RATE) 10 0 - 30 mm/Hr 11/25/2016 10:50 PM CDT [facility] Blood Venipuncture / Unknown 11/25/2016 7:05 PM CDT 11/25/2016 10:33 PM CDT us Bryan Jonas DO HEMATOLOGY ORDERABLES Final Res ult [facility] CLIA # [id number] [address] [address] * (ABNORMAL) COMPREHENSIVE METABOLIC PANEL (11/25/2016 7:05 PM T) SODIUM 142 136 - 145 mmol/L 11/25/2016 11:21 PM [facility] POTASSIUM 4.2 3.5 - 5.1 mmol/L 11/25/2016 11:21 PM [facility] CHLORIDE 102 98 - 107 mmol/L 11/25/2016 11:21 PM [facility] CO2 24 22 - 29 mmol/L 11/25/2016 11:21 PM [facility] CALCIUM 9.6 8.6 - 10.0 mg/dL 11/25/2016 11:21 PM [facility] BUN 15 6 - 20 mg/dL 11/25/2016 11:21 PM [facility] CREATININE 0.74 0.51 - 0.95 mg/dL 11/25/2016 11:21 PM [facility] GLUCOSE 119(H) 74 - 106 mg/dL 11/25/2016 11:21 PM [facility] TOTAL PROTEIN 7.3 6.6 - 8.7 g/dL 11/25/2016 11:21 PM [facility] ALBUMIN 4.3 3.5 - 5.2 g/dL 11/25/2016 11:21 PM [facility] BILIRUBIN TOTAL 0.3 0.0 - 1.2 mg/dL 11/25/2016 11:21 PM [facility] ALKALINE PHOSPHATASE 92 35 - 104 U/L 11/25/2016 11:21 PM [facility] AST 24 10 - 35 U/L 11/25/2016 11:21 PM [facility] ALT 31 10 - 35 U/L 11/25/2016 11:21 PM [facility] GFR >60 >=60 mL/min/1.7 3 sq meter 11/25/2016 11:21 PM [facility] Comment: eGFR has not been [...] GFR, >60 >=60 mL/min/1.7 3 sq meter 11/25/2016 11:21 PM T [facility] ANION GAP 16 12 - 20 mmol/L 11/25/2016 11:21 PM [facility] Blood Venipuncture / Unknown 11/25/2016 7:05 PM CDT 11/25/2016 10:33 PM CDT us Bryan Jonas DO CHEMISTRY ORDERABLES Final Resu lt [facility] CLIA # [id number] [address] [place] [address] * (ABNORMAL) CBC WITH DIFFERENTIAL (11/25/2016 7:05 PM CDT) WBC 8.3 4.0 - 10.0 K/uL 11/25/2016 10:42 PM [facility] RBC 4.58 3.93 - 5.22 M/uL 11/25/2016 10:42 PM [facility] HEMOGLOBIN 14.0 11.2 - 15.7 g/dL 11/25/2016 10:42 PM [facility] HEMATOCRIT 43.5 34.1 - 44.9 % 11/25/2016 10:42 PM [facility] MCV 95.0(H) 79.4 - 94.8 fL 11/25/2016 10:42 PM [facility] MCH 30.6 25.6 - 32.2 pg 11/25/2016 10:42 PM [facility] MCHC 32.2 32.2 - 35.5 g/dL 11/25/2016 10:42 PM [facility] RDW 13.7 11.0 - 14.5 % 11/25/2016 10:42 PM [facility] RDW-STDEV 45.6 36.9 - 56.9 fL 11/25/2016 10:42 PM [facility] PLATELETS 315 163 - 337 K/uL 11/25/2016 10:42 PM [facility] MPV 10.4 10.0 - 14.8 fL 11/25/2016 10:42 PM [facility] NEUTROPHILS 57 34 - 71 % 11/25/2016 10:42 PM [facility] LYMPHOCYTES 29 19 - 52 % 11/25/2016 10:42 PM [facility] MONOCYTES 10 5 - 13 % 11/25/2016 10:42 PM [facility] EOSINOPHILS 3 1 - 6 % 11/25/2016 10:42 PM [facility] BASOPHILS 0 0 - 1 % 11/25/2016 10:42 PM [facility] IMMATURE GRANULOCYTES 0 % 11/25/2016 10:42 PM [facility] NEUTROPHIL ABSOLUTE 4.74 1.56 - 6.13 K/uL 11/25/2016 10:42 PM [facility] LYMPHOCYTE ABSOLUTE 2.41 1.20 - 3.40 K/uL 11/25/2016 10:42 PM [facility] MONOCYTE ABSOLUTE 0.80(H) 0.24 - 0.36 K/uL 11/25/2016 10:42 PM [facility] EOSINOPHIL ABSOLUTE 0.28 0.04 - 0.36 K/uL 11/25/2016 10:42 PM [facility] BASOPHILS ABSOLUTE 0.03 0.01 - 0.08 K/uL 11/25/2016 10:42 PM [facility] IMMATURE GRANULOCYTES ABSOLUTE 0.03 K/uL 11/25/2016 10:42 PM [facility] Blood Venipuncture / Unknown 11/25/2016 7:05 PM CDT 11/25/2016 10:33 PM CDT us Bryan Jonas DO HEMATOLOGY ORDERABLES Final Res ult [facility] # [id number] [address] [address] documented in this encounter Visit Diagnoses Not on filedocumented in this encounter Care Teams Joinery Setter Out Relationship Specialty Start Date End Date Jai Hopkins MD [address] [address] PCP - General Family Practice 10/13/17 documented as of this encounter
--- OUTSIDE RECORDS SUMMARY | 2025-02-02 05:52 | XMS_ITS | Encounter Summary ---
Author Organization [facility] Address 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
--- OUTSIDE RECORDS SUMMARY | 2025-02-02 05:53 | XMS_ITS ---
Author Organization [facility] Care Team Providers Care City Editor Name Role Phone NoelBrenda Unavailable Unavailable GLADYS NEAL Unavailable Unavailable Allergies and adverse reactions Code CodeSystem Substance Reaction Severity StartDate Concern Status Tomato Unknown Unknown active 182762913 SNOMED CT Penicillins Unknown Unknown active Latex Unknown Unknown active Kiwi Fruit Unknown Unknown active Cinnamon Unknown Unknown active 1191 RXNORM Aspirin Unknown Unknown active Care Team Name Role Address Phone Organization Dates GLADYS NEAL PCP [address] [place], [address], [facility] (Office): : : [facility] 04/24/2021 - 04/29/[address], [address], [place] [facility] (Office): : [facility] 04/24/2021 - 04/29/2021 Goals Section Goals Description Status Target Date The resident will be free fr om complications related to infection through the review date. Active 08/06/2021 Immunizations Immunization Status Vaccine Details Vaccine Code CodeSystem Date Notes Influenza completed Influenza, high-dose, split virus, quadrivalent, injectable, preservative free 197 CVX created date: 04/24/2021 administere d date: 02/01/2020 TB 2 Step Mantoux Skin Test completed tuberculin skin test; unspecified formulation lotNumber: [id number] expiry: 07/20/2022 Mfg: CHUCHO BO Given 0.1 ml Right Forearm subcutaneously Step 1 of Multi-step with next step required 98 CVX created date: 04/25/2021 consent date: 04/24/2021 administere d date: 04/25/2021 Mental Status Section Date Assessment Total Score Description 04/28/2021 BIMS 15 cognitively int act CAM 0 No delirium ind icated PHQ-9 00 Insurance Providers Plan of Treatment Section Interventions Intervention Code Code System Display Name Proposed D ate Problems Problem # Description Date of onset Resolved Date Code CodeSystem Concern Status 1 DIFFICULTY IN WALKING, NOT ELSEWHERE CLASSIFIED 04/25/[address] active 2 MUSCLE WASTING AND ATROPHY, NOT ELSEWHERE CLASSIFIED, UNSPECIFIED SITE 04/25/[address] active 3 ANXIETY DISORDER, UNSPECIFIED 04/24/[address] active 4 BODY MASS INDEX [BMI] 45.0-49.9, ADULT 04/24/[address] active 5 DISRUPTION OF EXTERNAL OPERATION (SURGICAL) WOUND, NOT ELSEWHERE CLASSIFIED, SUBSEQUENT ENCOUNTER 04/24/[address] active 6 DYSPNEA, UNSPECIFIED 04/24/[address] active 7 ESSENTIAL (PRIMARY) HYPERTENSION 04/24/[address] active 8 HEMIPLEGIC MIGRAINE, NOT INTRACTABLE, WITHOUT STATUS MIGRAINOSUS 04/24/[address] active 9 MAJOR DEPRESSIVE DISORDER, RECURRENT, MILD 04/24/[address] active 10 MORBID (SEVERE) OBESITY DUE TO EXCESS CALORIES 04/24/[address] active 11 OTHER FRACTURE OF UPPER AND LOWER END OF RIGHT FIBULA, SUBSEQUENT ENCOUNTER FOR CLOSED FRACTURE WITH ROUTINE HEALING 04/24/[address] active 12 PRESENCE OF RIGHT ARTIFICIAL KNEE JOINT 04/24/[address] active 13 PURE HYPERGLYCERIDEMIA 04/24/[address] active 14 TYPE 2 DIABETES MELLITUS WITHOUT COMPLICATIONS 04/24/[address] active 15 UNSPECIFIED OSTEOARTHRITIS, UNSPECIFIED SITE 04/24/[address] active 16 UNSPECIFIED TEMPOROMANDIBULAR JOINT DISORDER, UNSPECIFIED SIDE 04/24/[address] active Reason for Referral No Reasons for Referral Entered Social History Social History Observation Description Start Date End Date Code Code System Current Smoking Status Tobacco smoking consumption unknown 876632725 SNOMED CT Sex Assigned At Female 1965 85312-6 [facility] Gender Identity Sexual Orientation Vital Signs Code Code System Vitals Name Values and Units Timing Information 80114-9 [facility] Pain Level Value=1.0 04/29/2021 14041-9 [facility] O2 % BldC Oximetry Value=99.0 Units= % 04/27/2021 9279-1 [facility] Respiratory Rate Value=16.0 Units=/m in 04/27/2021 8462-4 [facility] Blood Pressure-Diastolic Value=78 Un its=mmHg 04/27/2021 8480-6 [facility] Blood Pressure-Systolic Laeoy=316 Un its=mmHg 04/27/2021 8867-4 [facility] Heart rate Value=66.0 Units=/min 8310-5 [facility] Body Temperature Value=96.8 Units= F 04/27/2021 8302-2 [facility] Height Value=63.0 Units=Inches 04/25/2021 98369-0 [facility] Weight Yomev=626.0 Units=Lbs
--- OUTSIDE RECORDS SUMMARY | 2025-02-02 05:53 | XMS_ITS | Encounter Summary ---
Author Organization [facility] Address [address] [place] [address] Care Team Providers Care Glass Etcher Helper Name Role Phone Jai Hopkins MD Primary Care Provider [phone] Reason for Visit * Reason Comments Med Refill Encounter Details Date Type Department Care Team (Late st Contact Info) Description 11/22/2022 Refill [facility] Neurology- [place] [address] [facility] [address] [place] [address] Holland Whaley MD [address] [place] [address] Social History Tobacco Use Types Packs/Day Years [...] hurts you emotionally and/or physically? 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
--- OUTSIDE RECORDS SUMMARY | 2025-02-02 05:53 | XMS_ITS | Encounter Summary ---
Author Organization [facility] Address [address] [place] [address] Care Team Providers Care Information Resources Director Name Role Phone Jai Hopkins MD Primary Care Provider [phone] Reason for Referral * Outpatient Services (Routine) - Closed Specialty Diagnoses / Procedures Referred By Contac t Referred To Contact Radiology Diagnoses Hemiplegia (CMS/HCC) Migraine Procedures MRI BRAIN W WO CONTRAST Bryan Jonas DO [facility] [address] [place] [address] Phone: tel: fax: Referral ID Status Reason Start Date Expiration Date V isits Requested Visits Authorized [id number] Closed [facility] CTS to Schedule (SGF) 07/08/2017 08/08/2018 1 1 Encounter Details Date Type Department Care Team (Late st Contact Info) Description 07/08/2017 Ancillary Orders [facility] [address] [facility] [address] [place] [address] Bryan Jonas DO NO ADDRESS ON FILE Hemiplegia (CMS/HCC); Migraine Social History Tobacco Use Types Packs/Day Years Used Date Smoking Tobacco: Never Assessed Comments Unknown Sex and Gender Information Value Date Recorded Sex Assigned at Not on file Legal 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 Exam: MRI BRAIN W WO CONTRAST Date/Time of Exam: 07/17/2017 12:10 PM Reason For Exam: Hemiplegia, Migraine. Technique: MRI of the brain was performed prior to and following the administration of intravenous contrast. Contrast: 20 mL of MultiHance Comparison: None Findings: Normal midline structures, ventricles and relationships at the foramen magnum. No restricted diffusion. A few punctate areas of increased T2 signal in the cerebral white matter. The brainstem and cerebellum are unremarkable. No significant abnormal susceptibility changes. Slight nasal septal deviation to the left. IMPRESSION: 1. No significant abnormality. [id number] Narrative Procedure Note Rex Hernandez MD - 07/18/2017 IMPRESSION: Please see below. Exam: MRI BRAIN W WO CONTRAST Date/Time of Exam: 07/17/2017 12:10 PM Reason For Exam: Hemiplegia, Migraine. Technique: MRI of the brain was performed prior to and following the administration of intravenous contrast. Contrast: 20 mL of MultiHance Comparison: None Findings: Normal midline structures, ventricles and relationships at the foramen magnum. No restricted diffusion. A few punctate areas of increased T2 signal in the cerebral white matter. The brainstem and cerebellum are unremarkable. No significant abnormal susceptibility changes. Slight nasal septal deviation to the left. IMPRESSION: 1. No significant abnormality. [id number] Bryan Jonas DO MR ORDERABLES Final Result documented in this encounter Visit Diagnoses Diagnosis Hemiplegia (CMS/HCC) Hemiplegia, unspecified, affecting unspecified side Migraine Migraine, unspecified, without mention of intractable migraine without mention of status migrainosus Hemiplegia (CMS/HCC) Hemiplegia, unspecified, affecting unspecified side Migraine Migraine, unspecified, without mention of intractable migraine without mention of status migrainosus documented in this encounter Care Teams Information Resources Director Relationship Specialty Start Date End Date Jai Hopkins MD [address] [id number] PCP - General Family Practice 10/13/17 documented as of this encounter
--- OUTSIDE RECORDS SUMMARY | 2025-02-02 05:53 | XMS_ITS | Encounter Summary ---
Author Organization [facility] Address [address] [place] [address] Care Team Providers Care Moth Exterminator Name Role Phone Jai Hopkins MD Primary Care Provider [phone] Encounter Details Date Type Department Care Team (Late st Contact Info) Description 11/25/2016 Lab Requisition [facility] [place] [address] [place] [address] Bryan Jonas, NO ADDRESS ON FILE Social History Tobacco Use Types Packs/Day Years Used Date Smoking Tobacco: Never Assessed Comments Unknown Sex and Gender Information Value Date Recorded Sex Assigned at Not on file 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 Gender Identity Not on file Sexual Orientation Not on file documented as of this encounter Plan of Treatment Not on file documented as of this encounter Procedures Procedure Name Priority Date/Time Associated Diagnosis Comments CLARE SCREEN W/REFLEX Routine 11/25/2016 7 :07 PM CDT documented in this encounter Results * CLARE SCREEN W/REFLEX (11/25/2016 7:07 PM CDT) CLARE SCREEN Negative Negative 11/27/2016 2:46 PM CDT [facility] Blood Venipuncture / Unknown 11/25/2016 7:07 PM CDT 11/25/2016 10:03 PM CDT Bryan Jonas DO CHEMISTRY ORDERABLES Final Resu lt [facility]# [id number] [address] [place] [address] documented in this encounter Visit Diagnoses Not on filedocumented in this encounter Care Teams Moth Exterminator Relationship Specialty Start Date End Date Jai Hopkins MD [address] [facility] [address] [place] [phone] PCP - General Family Practice 10/13/17 documented as of this encounter
[2025-02-02] MEDS: hyDRALAzine 20 mg/mL INJ 1 mL 10 MG IVP (06:05)
[2025-02-02 06:39] VITALS: BP 206/64; PULSE 77; RESP 18; O2SAT 96
== END 2025-02-02 06:41 | disposition home or self-care (01) ==
PROVIDERS: Emergency Provider Emergency Medicine; PCP Physician Assistant
DX: G43.909 Migraine, unspecified, not intractable, without status migrainosus (principal); I10 Essential (primary) hypertension; E11.42 Type 2 diabetes mellitus with diabetic polyneuropathy
CPT/HCPCS: 36415; 96374; 96375; 99284; J0360; J1200; J1885; J2765

== ENCOUNTER 2025-03-18 07:48 | Outpatient (CLI) | payer MEDICARE, MEDICAID, SELFPAY ==
--- NOTE | 2025-03-18 07:54 | MR_ITS ---
WS: [id number] MRI BRAIN WITHOUT CONTRAST HISTORY: STATUS MIGRAINOSUS COMPARISON: 08/12/2023 TECHNIQUE: Diffusion imaging, multiplanar T1, T2 and FLAIR imaging obtained. No evidence for acute infarct or hemorrhage. Dawkins-white matter differentiation is normal. No significant atrophy. There are a few scattered T2 and FLAIR signal hyperintensities within the white matter which were also described on 08/12/2023. Not significantly progressed. Greater small foci within the LEFT cerebrum. No prior infarct. No hemorrhage. Normal hippocampal formations. Ventricles and extra-axial spaces are normal. No inferior displacement of cerebellar tonsils. The sella turcica and pituitary gland are unremarkable. Dural venous sinuses and telida of Henry demonstrate no abnormality on this unenhanced studies. Paranasal sinuses: Mild mucoperiosteal thickening in the maxillary sinuses. Small mucous retention cyst LEFT maxillary sinus. Mastoid air cells: Normal. Calvarium and scalp: Intact. MR/MR head wo con* [id number] IMPRESSION: 1. Normal diffusion imaging. No acute infarct. 2. Scattered T2 and FLAIR signal hyperintensities in the supratentorial white matter, greater on the LEFT. Stable since 08/12/2023. These white matter lesions can be seen with microangiopathic disease, hypertension, diabetes, smoking and migraines. 3. Mild maxillary sinus disease. 4. Normal hippocampal formations.
== END 2025-03-18 07:49 | disposition home or self-care (01) ==
LOC: RAD 07:49
PROVIDERS: PCP Physician Assistant; Visit Provider Physician Assistant
DX: G43.901 Migraine, unspecified, not intractable, with status migrainosus (principal); R90.89 Other abnormal findings on diagnostic imaging of central nervous system; J01.00 Acute maxillary sinusitis, unspecified
CPT/HCPCS: 70551